=== PATIENT | male | born 1945 | race Caucasian/White ===

== ENCOUNTER 2019-02-08 15:31 | Inpatient (IN) ==
[2019-02-08] MEDS: SODIUM CHLORIDE 0.9% 1000ML 1,000 ML IV SCH ×2 (16:23→20:01)
[2019-02-08 16:26] LABS: Basophils # (auto) 0.02 K/uL (0-0.2); Basophils % (auto) 0.2 %; Eosinophils % (auto) 1.1 %; Hematocrit (blood only) 37.3 % (42-52); Hemoglobin 12.9 g/dL (14.0-18.0); Immature Granulocytes # (auto) 0.01 K/uL (0.00-0.02); Immature Granulocytes % (auto) 0.1 %; Lymphocytes % (auto) 23.3 %; Mean Corpuscular Hemoglobin 30.9 pg (25-34); Mean Corpuscular Hgb Conc 34.6 g/dL (32-36); Mean Corpuscular Volume 89.2 fL (80-100); Mean Platelet Volume 9.9 fL (7.4-10.4); Monocytes % (auto) 5.3 %; Neutrophils # (auto) 6.61 K/uL (1.4-6.5); Platelet Count 209 K/uL (130-400); RDW Standard Deviation 42.3 fL (36.4-46.3); Red Blood Count 4.18 M/uL (4.7-6.1); White Blood Count 9.44 K/uL (4.8-10.8)
[2019-02-08 16:41] LABS: INR 1.1 (0.9-1.1); Partial Thromboplastin Ratio 1.1; Partial Thromboplastin Time 28.6 Seconds (21.0-31.0)
--- NOTE | 2019-02-08 16:41 | XRay Report ---
XR chest 1V portable HISTORY: 73 years-old Male gi bleed acute GI bleed COMPARISON: Chest radiograph 01/03/2014 TECHNIQUE: Portable AP view of the chest FINDINGS: Cardiac silhouette is upper limits of normal in size. There is no pneumothorax, pleural effusion, foc al airspace consolidation or overt pulmonary edema. Degenerative changes of the shoulders and spine. Mild left hemidiaphragmatic elevation. IMPRESSION: No acute process. The above report was generated using voice recognition software. It may contain grammatical, syntax o r spelling errors. Electronically signed by: Caden Haynes M.D. 02/08/2019 4:40 PM
[2019-02-08 16:53] LABS: Albumin Level 2.7 gm/dl (3.4-5.0); BUN Creatinine Ratio 21.3 (10-20); Bilirubin,Total 0.4 mg/dl (0.2-1); Calcium 8.9 mg/dl (8.5-10.1); Creatinine Clr Calc Pharmacy 40.7 ml/min; Est GFR (African American) 52.4; Est GFR (Non-African American) 45.2; Globulin 2.7 gm/dl (2.5-4.0); Potassium 4.1 mmol/L (3.5-5.1); Total Protein 5.4 gm/dl (6.4-8.2)
[2019-02-08] MEDS ORDERED: SODIUM CHLORIDE 0.9% 1000ML 1,000 ML IV ONE (16:59)
[2019-02-08] MEDS ORDERED: SODIUM CHLORIDE 0.9% 250 ML IV PRN (17:02)
--- NOTE | 2019-02-08 17:59 | History & Physical Report ---
Date of Service February 08, 2019 Assessment & Plan (1) Rectal bleed: This is a 73-year-old male with a PMH of DM II, HTN and HLD who presents with rectal bleed starting early this afternoon. -Endorses 5 episodes of bright red blood with presence of clots and some dark blood -No history of GI bleeds. Daily baby aspirin use -Has been intermittently hypotensive during vasovagal episodes but improved to 106/49. Now 88/56. Continue IV fluid bolus, [address] IV[address] in place -Hgb stable at 12.9. Trend H&H. Type & crossed and consented with 2u PRBCs held -Clear liquids for now, NPO at midnight. Routine GI consult -Considered abdominal imaging but do not want to give IV contrast in setting of ASHLEE. No abdominal pain on exam -Afebrile, no leukocyosis so no abx given for now -Monitor labwork, vitals closely (2) Vasovagal syncope: Has had 2 episodes in reaction to sight of blood -No reflexive tachycardia- HR has remained in normal range -Continue IV fluids, monitor on telemetry (3) Acute kidney injury: Cr elevated at 1.51 (baseline Cr ~1.1). BUN/Cr ratio of 21 in setting of GI bleed -Receiving IV fluids -Hold lisinopril (4) Diabetes mellitus type II, uncontrolled: Last a1c of 11.9 in Nov 2017. Repeat pending -Takes insulin around 2694-6936 after returning from work -BSG of 368 initially. Glycemic consult placed for further management, diabetic education (5) HTN (hypertension): Intermittently hypotensive -Holding lisinopril in setting of ASHLEE (6) BPH (benign prostatic hypertrophy) with urinary retention: History of urinary retention -Bladder scan qshift PRN (7) HLD (hyperlipidemia): Continue statin DVT Ppx: SCDs in setting of rectal bleed Code status: FULL PCP: Robin Dispo: Admitted to PCU. Plan to return home once medically stable. Patient seen in collaboration with Dr. Alcaraz. Please see addendum. History of Present Illness Chief Complaint: Rectal bleeding Primary Care Provider: Moo Kelly MD This is a 73-year-old male with a PMH of DM II, HTN and HLD who presents with rectal bleed starting early this afternoon. Patient states he had some abdominal cramping prior to first episode of bright red blood per rectum mixed with loose stool. Had 4 subsequent episodes that were bright red but also with presence of blood clots and some dark red as well. Menno lightheaded and nauseous after viewing the toilet bowl and had a syncopal episode. Was brought into ED for further evaluation. Afebrile and hemodynamically stable with BP of 111/86. Patient became queasy again with the placement of peripheral IV and had hypotensive episode with syncope. Is receiving IV fluid bolus now with improvement of BP to 106/49. Heart rate of 73. Hemoglobin is stable at 12.9. No leukocytosis. Creatinine elevated at 1.51 (baseline ~1.1). Blood sugar elevated at 368. 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 Took 18 units of Lantus around 0100 last night. Denies any decreased appetite today. Currently, no lightheadedness, visual changes, chest pain, shortness of breath, nausea, vomiting, abdominal pain or dysuria. Denies history of GI bleeds. No history of hemorrhoids. Takes a baby aspirin daily but denies any ibuprofen use. Remote history of colonoscopy and does not remember results. Allergies Allergy/AdvReac Type Severity Reaction Status Date / Time No Known Allergies Allergy Unverified 02/08/19 17:09 Home Medications Home Medications Medication Instructions Recorded Confirmed Type aspirin [Aspir-81] 81 mg PO DAILY 02/08/19 02/08/19 History atorvastatin [Lipitor] 40 mg PO DAILY 02/08/19 02/08/19 History docusate sodium 100 mg PO DAILY 02/08/19 02/08/19 History insulin aspart U-100 [Novolog 10 unit SUBCUT TIDM 02/08/19 02/08/19 History Flexpen U-100 Insulin] insulin glargine [Lantus Solostar 10 unit SUBCUT QPM 02/08/19 02/08/19 History U-100 Insulin] lisinopril 20 mg PO DAILY 02/08/19 02/08/19 History multivitamin 1 tab PO DAILY 02/08/19 02/08/19 History Past Med/Surg History Medical History Acute kidney injury (Inactive 12/01/13) BPH (benign prostatic hypertrophy) with urinary retention (Chronic) "Present occultly for a while" Diabetes mellitus type II, uncontrolled (Chronic) Hernia HLD (hyperlipidemia) (Chronic) HTN (hypertension) (Chronic) Surgical History History of ankle surgery Family History Other Diabetes Social History Communication Ability: Effective Beliefs That Will Affect Care: None Current Living Situation: Spouse current occupational status: employed 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 Physical Exam Physical Exam: General Appearance: WD/WN, vitals as above, NAD, lying in bed, conversing easily, + pale Head: normocephalic, atraumatic Eyes: normal inspection, PERRL, conjunctivae normal, anicteric sclerae ENT: external ear and nose normal, oropharynx normal Neck: trachea midline, no thyromegaly normal visual inspection Respiratory: normal respiratory effort, lungs clear to auscultation, no wheeze, rales, rhonchi. Normal insp/exp effort, no accessory muscle use Cardiovascular: regular rate, rhythm, no murmur, normal peripheral pulses. Vessels: no JVD or carotid bruit Chest: normal inspection of chest Abdomen/GI: normal bowel sounds, soft, nontender, no hepatosplenomegaly Extremities/Musculoskelatal: no cyanosis or clubbing, extremities motor strength 5/5 Neurologic: PERRL, EOMI, accommodation nl, no face palsy, no dysarthria CN's II-XI intact bilaterally and moves all extremities Psychiatric: A+Ox3, euthymic affect Skin: no rashes, pale, warm/dry Results & Data Vital Signs (Past 12 Hours) Vital Signs Temp Pulse Resp BP Pulse Ox 02/08/19 17:30 75 26 H 106/49 L 99 02/08/19 17:00 61 21 97/75 L 97 02/08/19 16:56 64 22 82/46 L 97 02/08/19 16:21 97 02/08/19 15:28 36.8 C 96 H 18 111/86 97 Laboratory Results Short CBC 02/08/19 02/08/19 02/08/19 Range/Units 16:11 16:11 16:11 WBC 9.44 (4.8-10.8) K/uL RBC 4.18 L (4.7-6.1) M/uL Hgb 12.9 L (14.0-18.0) g/dL Hct 37.3 L (42-52) % MCV 89.2 (80-100) fL MCH 30.9 (25-34) pg MCHC 34.6 (32-36) g/dL RDW Std Deviation 42.3 (36.4-46.3) fL RDW Coeff of Radha 13.0 (11.5-14.5) % Plt Count 209 (130-400) K/uL MPV 9.9 (7.4-10.4) fL Immature Gran % (Auto) 0.1 % Neut % (Auto) 70.0 % Lymph % (Auto) 23.3 % [place] % (Auto) 5.3 % Eos % (Auto) 1.1 % Baso % (Auto) 0.2 % Immature Gran # (Auto) 0.01 (0.00-0.02) K/uL Neut # (Auto) 6.61 H (1.4-6.5) K/uL Lymph # (Auto) 2.20 (1.2-3.4) K/uL [place] # (Auto) 0.50 (0.11-0.59) K/uL Eos # (Auto) 0.10 (0-0.5) K/uL Baso # (Auto) 0.02 (0-0.2) K/uL PT 11.0 (9.0-12.0) Seconds INR 1.1 (0.9-1.1) APTT 28.6 (21.0-31.0) Seconds PTT Ratio 1.1 Sodium 136 (136-145) mmol/L Potassium 4.1 (3.5-5.1) mmol/L Chloride 107 (98-107) mmol/L Carbon Dioxide 21 (21-32) mmol/L Anion Gap 8.0 (3-11) BUN 32 H (7-18) mg/dl Creatinine 1.51 H (0.6-1.4) mg/dl Est Cr Clr Drug Dosing 40.7 ml/min Est GFR ( Amer) 52.4 Est GFR (Non-Af Amer) 45.2 BUN/Creatinine Ratio 21.3 H (10-20) Glucose 368 H* (70-99) mg/dl Calcium 8.9 (8.5-10.1) mg/dl Total Bilirubin 0.4 (0.2-1) mg/dl AST 11 L (15-37) U/L ALT 28 (12-78) U/L Alkaline Phosphatase 99 (45-117) U/L Total Protein 5.4 L (6.4-8.2) gm/dl Albumin 2.7 L (3.4-5.0) gm/dl Globulin 2.7 (2.5-4.0) gm/dl Albumin/Globulin Ratio 1.0 (0.9-2) Crossmatch 02/08/19 Range/Units 16:11 WBC (4.8-10.8) K/uL RBC (4.7-6.1) M/uL Hgb (14.0-18.0) g/dL Hct (42-52) % MCV (80-100) fL MCH (25-34) pg MCHC (32-36) g/dL RDW Std Deviation (36.4-46.3) fL RDW Coeff of Radha (11.5-14.5) % Plt Count (130-400) K/uL MPV (7.4-10.4) fL Immature Gran % (Auto) % Neut % (Auto) % Lymph % (Auto) % [place] % (Auto) % Eos % (Auto) % Baso % (Auto) % Immature Gran # (Auto) (0.00-0.02) K/uL Neut # (Auto) (1.4-6.5) K/uL Lymph # (Auto) (1.2-3.4) K/uL [place] # (Auto) (0.11-0.59) K/uL Eos # (Auto) (0-0.5) K/uL Baso # (Auto) (0-0.2) K/uL PT (9.0-12.0) Seconds INR (0.9-1.1) APTT (21.0-31.0) Seconds PTT Ratio Sodium (136-145) mmol/L Potassium (3.5-5.1) mmol/L Chloride (98-107) mmol/L Carbon Dioxide (21-32) mmol/L Anion Gap (3-11) BUN (7-18) mg/dl Creatinine (0.6-1.4) mg/dl Est Cr Clr Drug Dosing ml/min Est GFR ( Amer) Est GFR (Non-Af Amer) BUN/Creatinine Ratio (10-20) Glucose (70-99) mg/dl Calcium (8.5-10.1) mg/dl Total Bilirubin (0.2-1) mg/dl AST (15-37) U/L ALT (12-78) U/L Alkaline Phosphatase (45-117) U/L Total Protein (6.4-8.2) gm/dl Albumin (3.4-5.0) gm/dl Globulin (2.5-4.0) gm/dl Albumin/Globulin Ratio (0.9-2) Crossmatch See Detail BMP 02/08/19 16:11 Sodium 136 Potassium 4.1 Chloride 107 Carbon Dioxide 21 BUN 32 H Creatinine 1.51 H Glucose 368 H* Calcium 8.9 Liver Function 02/08/19 Range/Units 16:11 Total Bilirubin 0.4 (0.2-1) mg/dl AST 11 L (15-37) U/L ALT 28 (12-78) U/L Alkaline Phosphatase 99 (45-117) U/L Albumin 2.7 L (3.4-5.0) gm/dl Diagnostic Findings CXR: IMPRESSION: No acute process. Supervising Physician Co-Signing Physician Notes I have seen and examined the patient and have discussed the case with the provider above. I agree with the assessment and plan as stated with the following exceptions. 73 yo M with acute GI bleed. Blood is reported as dark red and frequent with 7 BMs beginning this afternoon. Asymptomatic prior to this. Some initial abdominal cramping was present momentarily and was resolved with a BM. Blood had clots in it, and although there was some bright red blood, states that actually bloody stool was very dark. Abdominal exam a nontender, nondistended abdomen with a small reducible hernia in the left groin. He reports no nausea, vomiting or hematemesis. He has no h/o steroids, heavy alcohol or excessive NSAIDs but does take a daily baby aspirin. He has no h/o a GI bleed. There is no colonoscopy on file, but he states he has had one in the past. Although most signs are pointing to a lower GI source, he is exhibiting some hemodynamic instability with orthostasis, BUN is elevated, and there is concern for an UGIB source. He is receiving fluid resuscitation for his BP instability. Blood consent has been performed, he is typed and crossed and Protonix drip is infusing. H/H ordered for 2100, and will continue to monitor progress overnight and continue resuscitation efforts. Syncope that was reported may be a combination of orthostatic compromise 2/2 hypovolemia and vasovagal syncope as he is known to get lightheaded around needles and blood. DO Kieran
[2019-02-08 18:01] LABS: Beta-Hydroxybutyrate 1.95 mg/dl (0.2-2.81)
[2019-02-08] MEDS ORDERED: PHARMACY GLYCEMIC MGMT CONSULT STA (18:34)
[2019-02-08] MEDS ORDERED: CONSULT PHARMACY STA (18:46)
[2019-02-08] MEDS ORDERED: PANTOprazole 80 MG in DEXTROSE 5% 100 ML IV SCH (19:00)
[2019-02-08] MEDS ORDERED: NovoLIN-R INSULIN PER UNIT CHARGE IV STA (19:12)
[2019-02-08] MEDS ORDERED: GLUCAGON FOR INJ 1 MG VIAL SQ PRN (19:51)
[2019-02-08] MEDS ORDERED: DEXTROSE 50% 50 ML SYRINGE IV PRN (19:51)
[2019-02-08] MEDS ORDERED: CARBOHYDRATES FOR HYPOGLYCEMIA PO PRN (19:51)
[2019-02-08] MEDS ORDERED: GLUCOSE 10 TABS/TUBE PO PRN (19:51)
[2019-02-08] MEDS ORDERED: GLUCOSE 40% GEL 15 GM TUBE PO PRN (19:51)
[2019-02-08] MEDS ORDERED: ACETAMINOPHEN 325 MG TAB PO PRN (19:51)
[2019-02-08] MEDS ORDERED: ONDANSETRON INJ 2 MG/ML 2 ML VIAL IV PRN (19:51)
[2019-02-08] MEDS ORDERED: PHARMACY GLYCEMIC MGMT CONSULT PRN (19:54)
[2019-02-08] MEDS: PANTOprazole 40 MG in DEXTROSE 5% 100 ML IV SCH (20:01)
[2019-02-08] MEDS ORDERED: SODIUM CHLORIDE 0.9% 1000ML 1,000 ML IV SCH (20:32)
[2019-02-08] MEDS ORDERED: INSULIN GLARGINE SOLOSTAR 100 UNITS/ML 3 ML PEN SC SCH ×4 (21:00)
[2019-02-08] MEDS ORDERED: INSULIN REGULAR 250 UNITS in SODIUM CHLORIDE 0.9% 247.5 ML IV SCH (21:00)
[2019-02-08] MEDS ORDERED: INSULIN ASPART 100 UNITS/ML 3 ML PEN SC SCH (21:00)
[2019-02-08] MEDS ORDERED: INSULIN HUMAN REGULAR PER UNIT 5 UNITS in SYRINGE 4.95 ML IV STA (21:01)
[2019-02-08 21:18] LABS: Hematocrit (blood only) 31.5 % (42-52); Hemoglobin 10.7 g/dL (14.0-18.0)
[2019-02-08] MEDS: LACTATED RINGER'S 1,000 ML IV SCH (21:35)
[2019-02-08] MEDS: INSULIN ASPART 100 UNITS/ML 3 ML PEN SC SCH (21:38)
[2019-02-09] MEDS ORDERED: INSULIN ASPART 100 UNITS/ML 3 ML PEN SC SCH
[2019-02-09] MEDS: PANTOprazole 40 MG in DEXTROSE 5% 100 ML IV SCH ×2 (00:48→04:55)
[2019-02-09 01:13] LABS: Hemoglobin 9.7 g/dL (14.0-18.0)
[2019-02-09] MEDS: LACTATED RINGER'S 1,000 ML IV SCH (04:55)
[2019-02-09] MEDS ORDERED: LORazepam 0.5 MG TAB PO STA ×2 (05:26→05:38)
[2019-02-09 07:16] LABS: Basophils # (auto) 0.01 K/uL (0-0.2); Basophils % (auto) 0.1 %; Eosinophils # (auto) 0.07 K/uL (0-0.5); Eosinophils % (auto) 0.9 %; Hematocrit (blood only) 27.1 % (42-52); Hemoglobin 9.3 g/dL (14.0-18.0); Immature Granulocytes # (auto) 0.02 K/uL (0.00-0.02); Immature Granulocytes % (auto) 0.2 %; Lymphocytes # (auto) 1.35 K/uL (1.2-3.4); Lymphocytes % (auto) 16.7 %; Mean Corpuscular Hemoglobin 30.7 pg (25-34); Mean Corpuscular Hgb Conc 34.3 g/dL (32-36); Mean Corpuscular Volume 89.4 fL (80-100); Mean Platelet Volume 9.7 fL (7.4-10.4); Monocytes # (auto) 0.53 K/uL (0.11-0.59); Monocytes % (auto) 6.6 %; Neutrophils # (auto) 6.09 K/uL (1.4-6.5); Neutrophils % (auto) 75.5 %; Platelet Count 168 K/uL (130-400); RDW Coefficient of Variation 13.3 % (11.5-14.5); RDW Standard Deviation 43.3 fL (36.4-46.3); Red Blood Count 3.03 M/uL (4.7-6.1); White Blood Count 8.07 K/uL (4.8-10.8)
[2019-02-09 07:22] LABS: Estimated Average Glucose 289 mg/dl; Hemoglobin A1C 11.7 % (4.5-5.6)
[2019-02-09 07:33] LABS: BUN Creatinine Ratio 26.5 (10-20); Est GFR (African American) 78.5; Est GFR (Non-African American) 67.7; Magnesium 1.9 mg/dl (1.8-2.4); Potassium 3.6 mmol/L (3.5-5.1)
[2019-02-09 07:43] LABS: Thyroid Stimulating Hormone 0.556 uIu/ml (0.300-4.500)
[2019-02-09] MEDS: ATORVASTATIN 40 MG TAB PO SCH (08:20)
[2019-02-09] MEDS: MULTIVITAMIN TAB PO SCH (08:20)
[2019-02-09] MEDS: INSULIN GLARGINE SOLOSTAR 100 UNITS/ML 3 ML PEN SC SCH (08:21)
--- NOTE | 2019-02-09 08:32 | Pharmacy Report ---
Glycemic Control Consultation - Date of Service February 09, 2019 - Scope Scope: Glycemic Pharmacist consulted by Diana Washington PA-c on 02/08/19 for glycemic control and to write orders per [facility] inpatient glycemic control protocol - Objective Weight: 75.5 kg Accuchecks BSG (last 24hrs): 02/08/19 02/08/19 02/08/19 16:11 19:23 20:23 Glucose 368 H* POC Glucose 362 H* 379 H* 02/08/19 02/08/19 02/09/19 22:33 23:36 00:30 Glucose POC Glucose 327 H* 286 H 238 H 02/09/19 02/09/19 02/09/19 01:31 02:36 04:02 Glucose POC Glucose 219 H 130 H 119 H 02/09/19 02/09/19 02/09/19 05:04 05:45 06:52 Glucose 109 H POC Glucose 94 98 02/09/19 07:25 Glucose POC Glucose 116 H Laboratory Data (last 24hrs): 02/08/19 02/09/19 16:11 06:52 Potassium 4.1 3.6 Carbon Dioxide 21 22 Anion Gap 8.0 5.0 Creatinine 1.51 H 1.08 Est Cr Clr Drug Dosing 40.7 57.0 Beta-Hydroxybutyric Acd 1.95 HbA1c: Hemoglobin A1c 11.7 % (4.5-5.6) H 02/09/19 06:52 - Recent Pertinent Medications Outpatient Anti-diabetic Regimen: * Lantus 18 units SQ daily at 5am * Novolog 10 units TID with meals, sometime takes 20 units if eating larger meal * A1c = 11.7 % 02/08/19 The patient is currently receiving: * Basal insulin: Lantus 10 units x 1 dose last night * Insulin drip started last night at 4 units/hr, up as high as 5.8 units/hr, and shut off at 0500 this morning per drip calculator, BSG 98mg/dl Risk Factors for Insulin Resistance: * IVF: Protonix drip mixed in dextrose * Diet: Clears - Assessment & Plan Assessment & Plan: ASSESSMENT: * 73-year-old male with a PMH of DM II, HTN and HLD, admitted with rectal bleeding yesterday, pharmacy consulted last night. * Patient with blood sugars in 300s, give 10 units IV Regular insulin, blood sugars remained in 300s, so patient started on IV insulin drip with starting rate of 4units/hr and another bolus of 5 units IV. * Blood sugars trended down nicely by 5am drip was turned off. * Met with patient, he is very afraid of blood so does not SMBG at home. 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 * Patient takes Novolog with meals, and takes 20 units if having a larger meal. * Blood sugars uncontrolled based on A1c 11.7%. * ADA & AACE recommend a goal blood sugar range 140-180 mg/dl for the majority of critically ill & non-critically ill patients. However, more stringent targets may be selected in individual cases. Will utilize more stringent goal of 110-140mg/dl based on patient age & comorbidities. Additionally, tighter glycemic control is warranted to facilitate wound/infection healing. * Pt to see GI today. PLAN FOR INPATIENT GLYCEMIC CONTROL: * Discontinue IV insulin infusion * Basal insulin * Lantus 10 units SQ AM this morning, will likely increase to home dose of 18 units daily tomorrow morning * Bolus insulin * NovoLog per scale ACHS or Q6hrs while NPO * Goal Range: Low 110 mg/dL - High 140 mg/dL * Correction Factor: 20 mg/dL/unit * Nutritional / Prandial insulin per carb ratio of 1 unit per 7 grams CHO consumed * Please note that the plan above was derived based on current level of insulin resistance and hospital stress. These recommendations are appropriate for inpatient admission only. Plan of care upon discharge will need to be reassessed to avoid potential outpatient hypo/hyperglycemia. Thank you.
[2019-02-09] MEDS: INSULIN ASPART 100 UNITS/ML 3 ML PEN SC SCH ×4 (09:36→20:57)
--- NOTE | 2019-02-09 09:46 | Hospitalist Progress Note ---
Date of Service February 09, 2019 Assessment & Plan (1) Rectal bleed: This is a 73-year-old male with a PMH of DM II, HTN and HLD who presents with rectal bleed -Endorsed 5 episodes of bright red blood with presence of clots and some dark blood prior to admission -No prior history of GI bleeds. Daily baby aspirin use -Has been intermittently hypotensive during vasovagal episodes but improved -Hgb stable at 12.9 on admission. Type & crossed and consented with 2u PRBCs held - Now Hgb trending down, likely partially secondary to dilution from IVF, and acute blood loss -Considered abdominal imaging but do not want to give IV contrast in setting of ASHLEE. No abdominal pain on exam -Afebrile, no leukocyosis so no abx given for now -Clear liquids diet, IVF -GI consulted -believe diverticular bleed versus ischemic colitis, stool culture and C. difficile, change PPI related to Protonix 40 mg p.o. twice daily recommend colonoscopy in 4 to 6 weeks time -Ordered mesenteric Doppler to rule out ischemia, see results above -Patient had additional bleed, after his ultrasound study, GI recommends that if patient continues to bleed, tagged RBC scan, GoLYTELY prep and n.p.o. after midnight for possible colonoscopy tomorrow -Monitor labwork, vitals closely (2) Vasovagal syncope: Has had 2 episodes in reaction to sight of blood -No reflexive tachycardia- HR has remained in normal range -received IV fluids, monitor on telemetry (3) Acute kidney injury: Cr elevated at 1.51 (baseline Cr ~1.1). BUN/Cr ratio of 21 in setting of GI bleed -Received IV fluids -Hold lisinopril (4) Diabetes mellitus type II, uncontrolled: Last a1c of 11.9 in Nov 2017. A1c 11.7% (02/09/2019) -Takes insulin around [id number] after returning from work -BSG of 368 initially -Glycemic consult placed for further management, diabetic education (5) HTN (hypertension): Intermittently hypotensive -Holding lisinopril in setting of ASHLEE (6) BPH (benign prostatic hypertrophy) with urinary retention: History of urinary retention -Bladder scan qshift PRN (7) HLD (hyperlipidemia): Continue statin DVT Ppx: SCDs in setting of rectal bleed Code status: FULL PCP: Robin Dispo: Admitted to PCU. Plan to return home once medically stable. Subjective Patient is lying in bed, in no acute distress. His and 2 daughters present at the bedside. Patient denies any fevers, chills, chest pain, shortness of breath, nausea or vomiting. Patient says he had several bloody bowel movements at home but none in the hospital. Update: Patient had a small bloody bowel movement after his ultrasound exam Discussed with GI,That if patient continues to bleed give GoLYTELY prep and keep n.p.o. for colonoscopy tomorrow, possibly get tagged RBC scan Review of Systems Review of Systems: All systems reviewed & are unremarkable except as noted in HPI & below Constitutional: no fever and no chills Respiratory: no cough and no dyspnea Cardiovascular: no chest pain, no palpitations and no edema Gastrointestinal: + blood in stools; no nausea and no vomiting Physical Exam Physical Exam: General Appearance: Elderly male lying in bed, conversing easily, + pale Head: normocephalic, atraumatic Eyes: normal inspection, PERRL, EOMI, conjunctivae normal, anicteric sclerae ENT: external ear and nose normal, oropharynx normal Neck: trachea midline, no thyromegaly normal visual inspection Respiratory: normal respiratory effort, lungs clear to auscultation, no wheeze, rales, rhonchi. Normal insp/exp effort, no accessory muscle use Cardiovascular: regular rate, rhythm, no murmur, normal peripheral pulses. Vessels: no JVD or carotid bruit Chest: normal inspection of chest Abdomen/GI: normal bowel sounds, soft, nontender, no hepatosplenomegaly Extremities/MSK: no cyanosis or clubbing, extremities motor strength 5/5 Neurologic: PERRL, EOMI, accommodation nl, no face palsy, no dysarthria CN's II-XI intact bilaterally and moves all extremities Psychiatric: A+Ox3, euthymic affect Skin: no rashes, pale, warm/dry Results & Data Vital Signs (Past 12 Hours) Vital Signs Temp Pulse Resp BP Pulse Ox 02/09/19 07:51 36.9 C 86 18 101/63 96 02/09/19 03:18 37.1 C 84 18 100/59 L 96 02/08/19 23:40 37 C 92 H 20 98/52 L 97 Laboratory Results 02/09/19 02/09/19 02/09/19 Range/Units 07:25 06:52 06:52 WBC (4.8-10.8) K/uL RBC (4.7-6.1) M/uL Hgb (14.0-18.0) g/dL Hct (42-52) % MCV (80-100) fL MCH (25-34) pg MCHC (32-36) g/dL RDW Std Deviation (36.4-46.3) fL RDW Coeff of Radha (11.5-14.5) % Plt Count (130-400) K/uL MPV (7.4-10.4) fL Immature Gran % (Auto) % Neut % (Auto) % Lymph % (Auto) % [place] % (Auto) % Eos % (Auto) % Baso % (Auto) % Immature Gran # (Auto) (0.00-0.02) K/uL Neut # (Auto) (1.4-6.5) K/uL Lymph # (Auto) (1.2-3.4) K/uL [place] # (Auto) (0.11-0.59) K/uL Eos # (Auto) (0-0.5) K/uL Baso # (Auto) (0-0.2) K/uL PT (9.0-12.0) Seconds INR (0.9-1.1) APTT (21.0-31.0) Seconds PTT Ratio Sodium 141 (136-145) mmol/L Potassium 3.6 (3.5-5.1) mmol/L Chloride 114 H (98-107) mmol/L Carbon Dioxide 22 (21-32) mmol/L Anion Gap 5.0 (3-11) BUN 29 H (7-18) mg/dl Creatinine 1.08 (0.6-1.4) mg/dl Est Cr Clr Drug Dosing 57.0 ml/min Est GFR ( Amer) 78.5 Est GFR (Non-Af Amer) 67.7 BUN/Creatinine Ratio 26.5 H (10-20) Glucose 109 H (70-99) mg/dl POC Glucose 116 H (70-99) Estimat Average Glucose 289 mg/dl Hemoglobin A1c 11.7 H (4.5-5.6) % Calcium 8.0 L (8.5-10.1) mg/dl Magnesium 1.9 (1.8-2.4) mg/dl Total Bilirubin (0.2-1) mg/dl AST (15-37) U/L ALT (12-78) U/L Alkaline Phosphatase (45-117) U/L Total Protein (6.4-8.2) gm/dl Albumin (3.4-5.0) gm/dl Globulin (2.5-4.0) gm/dl Albumin/Globulin Ratio (0.9-2) Beta-Hydroxybutyric Acd (0.2-2.81) mg/dl TSH 0.556 (0.300-4.500) uIu/ml Blood Type Blood Type Recheck Antibody Screen Crossmatch 02/09/19 02/09/19 02/09/19 Range/Units 06:52 05:45 05:04 WBC 8.07 (4.8-10.8) K/uL RBC 3.03 L (4.7-6.1) M/uL Hgb 9.3 L (14.0-18.0) g/dL Hct 27.1 L (42-52) % MCV 89.4 (80-100) fL MCH 30.7 (25-34) pg MCHC 34.3 (32-36) g/dL RDW Std Deviation 43.3 (36.4-46.3) fL RDW Coeff of Radha 13.3 (11.5-14.5) % Plt Count 168 (130-400) K/uL MPV 9.7 (7.4-10.4) fL Immature Gran % (Auto) 0.2 % Neut % (Auto) 75.5 % Lymph % (Auto) 16.7 % [place] % (Auto) 6.6 % Eos % (Auto) 0.9 % Baso % (Auto) 0.1 % Immature Gran # (Auto) 0.02 (0.00-0.02) K/uL Neut # (Auto) 6.09 (1.4-6.5) K/uL Lymph # (Auto) 1.35 (1.2-3.4) K/uL [place] # (Auto) 0.53 (0.11-0.59) K/uL Eos # (Auto) 0.07 (0-0.5) K/uL Baso # (Auto) 0.01 (0-0.2) K/uL PT (9.0-12.0) Seconds INR (0.9-1.1) APTT (21.0-31.0) Seconds PTT Ratio Sodium (136-145) mmol/L Potassium (3.5-5.1) mmol/L Chloride (98-107) mmol/L Carbon Dioxide (21-32) mmol/L Anion Gap (3-11) BUN (7-18) mg/dl Creatinine (0.6-1.4) mg/dl Est Cr Clr Drug Dosing ml/min Est GFR ( Amer) Est GFR (Non-Af Amer) BUN/Creatinine Ratio (10-20) Glucose (70-99) mg/dl POC Glucose 98 94 (70-99) Estimat Average Glucose mg/dl Hemoglobin A1c (4.5-5.6) % Calcium (8.5-10.1) mg/dl Magnesium (1.8-2.4) mg/dl Total Bilirubin (0.2-1) mg/dl AST (15-37) U/L ALT (12-78) U/L Alkaline Phosphatase (45-117) U/L Total Protein (6.4-8.2) gm/dl Albumin (3.4-5.0) gm/dl Globulin (2.5-4.0) gm/dl Albumin/Globulin Ratio (0.9-2) Beta-Hydroxybutyric Acd (0.2-2.81) mg/dl TSH (0.300-4.500) uIu/ml Blood Type Blood Type Recheck Antibody Screen Crossmatch 02/09/19 02/09/19 02/09/19 Range/Units 04:02 02:36 01:31 WBC (4.8-10.8) K/uL RBC (4.7-6.1) M/uL Hgb (14.0-18.0) g/dL Hct (42-52) % MCV (80-100) fL MCH (25-34) pg MCHC (32-36) g/dL RDW Std Deviation (36.4-46.3) fL RDW Coeff of Radha (11.5-14.5) % Plt Count (130-400) K/uL MPV (7.4-10.4) fL Immature Gran % (Auto) % Neut % (Auto) % Lymph % (Auto) % [place] % (Auto) % Eos % (Auto) % Baso % (Auto) % Immature Gran # (Auto) (0.00-0.02) K/uL Neut # (Auto) (1.4-6.5) K/uL Lymph # (Auto) (1.2-3.4) K/uL [place] # (Auto) (0.11-0.59) K/uL Eos # (Auto) (0-0.5) K/uL Baso # (Auto) (0-0.2) K/uL PT (9.0-12.0) Seconds INR (0.9-1.1) APTT (21.0-31.0) Seconds PTT Ratio Sodium (136-145) mmol/L Potassium (3.5-5.1) mmol/L Chloride (98-107) mmol/L Carbon Dioxide (21-32) mmol/L Anion Gap (3-11) BUN (7-18) mg/dl Creatinine (0.6-1.4) mg/dl Est Cr Clr Drug Dosing ml/min Est GFR ( Amer) Est GFR (Non-Af Amer) BUN/Creatinine Ratio (10-20) Glucose (70-99) mg/dl POC Glucose 119 H 130 H 219 H (70-99) Estimat Average Glucose mg/dl Hemoglobin A1c (4.5-5.6) % Calcium (8.5-10.1) mg/dl Magnesium (1.8-2.4) mg/dl Total Bilirubin (0.2-1) mg/dl AST (15-37) U/L ALT (12-78) U/L Alkaline Phosphatase (45-117) U/L Total Protein (6.4-8.2) gm/dl Albumin (3.4-5.0) gm/dl Globulin (2.5-4.0) gm/dl Albumin/Globulin Ratio (0.9-2) Beta-Hydroxybutyric Acd (0.2-2.81) mg/dl TSH (0.300-4.500) uIu/ml Blood Type Blood Type Recheck Antibody Screen Crossmatch 02/09/19 02/09/19 02/09/19 Range/Units 00:57 00:57 00:30 WBC (4.8-10.8) K/uL RBC (4.7-6.1) M/uL Hgb 9.7 L (14.0-18.0) g/dL Hct 28.0 L (42-52) % MCV (80-100) fL MCH (25-34) pg MCHC (32-36) g/dL RDW Std Deviation (36.4-46.3) fL RDW Coeff of Radha (11.5-14.5) % Plt Count (130-400) K/uL MPV (7.4-10.4) fL Immature Gran % (Auto) % Neut % (Auto) % Lymph % (Auto) % [place] % (Auto) % Eos % (Auto) % Baso % (Auto) % Immature Gran # (Auto) (0.00-0.02) K/uL Neut # (Auto) (1.4-6.5) K/uL Lymph # (Auto) (1.2-3.4) K/uL [place] # (Auto) (0.11-0.59) K/uL Eos # (Auto) (0-0.5) K/uL Baso # (Auto) (0-0.2) K/uL PT (9.0-12.0) Seconds INR (0.9-1.1) APTT (21.0-31.0) Seconds PTT Ratio Sodium (136-145) mmol/L Potassium (3.5-5.1) mmol/L Chloride (98-107) mmol/L Carbon Dioxide (21-32) mmol/L Anion Gap (3-11) BUN (7-18) mg/dl Creatinine (0.6-1.4) mg/dl Est Cr Clr Drug Dosing ml/min Est GFR ( Amer) Est GFR (Non-Af Amer) BUN/Creatinine Ratio (10-20) Glucose (70-99) mg/dl POC Glucose 238 H (70-99) Estimat Average Glucose mg/dl Hemoglobin A1c (4.5-5.6) % Calcium (8.5-10.1) mg/dl Magnesium (1.8-2.4) mg/dl Total Bilirubin (0.2-1) mg/dl AST (15-37) U/L ALT (12-78) U/L Alkaline Phosphatase (45-117) U/L Total Protein (6.4-8.2) gm/dl Albumin (3.4-5.0) gm/dl Globulin (2.5-4.0) gm/dl Albumin/Globulin Ratio (0.9-2) Beta-Hydroxybutyric Acd (0.2-2.81) mg/dl TSH (0.300-4.500) uIu/ml Blood Type Blood Type Recheck O Positive Antibody Screen Crossmatch 02/08/19 02/08/19 02/08/19 Range/Units 23:36 22:33 20:59 WBC (4.8-10.8) K/uL RBC (4.7-6.1) M/uL Hgb 10.7 L (14.0-18.0) g/dL Hct 31.5 L (42-52) % MCV (80-100) fL MCH (25-34) pg MCHC (32-36) g/dL RDW Std Deviation (36.4-46.3) fL RDW Coeff of Radha (11.5-14.5) % Plt Count (130-400) K/uL MPV (7.4-10.4) fL Immature Gran % (Auto) % Neut % (Auto) % Lymph % (Auto) % [place] % (Auto) % Eos % (Auto) % Baso % (Auto) % Immature Gran # (Auto) (0.00-0.02) K/uL Neut # (Auto) (1.4-6.5) K/uL Lymph # (Auto) (1.2-3.4) K/uL [place] # (Auto) (0.11-0.59) K/uL Eos # (Auto) (0-0.5) K/uL Baso # (Auto) (0-0.2) K/uL PT (9.0-12.0) Seconds INR (0.9-1.1) APTT (21.0-31.0) Seconds PTT Ratio Sodium (136-145) mmol/L Potassium (3.5-5.1) mmol/L Chloride (98-107) mmol/L Carbon Dioxide (21-32) mmol/L Anion Gap (3-11) BUN (7-18) mg/dl Creatinine (0.6-1.4) mg/dl Est Cr Clr Drug Dosing ml/min Est GFR ( Amer) Est GFR (Non-Af Amer) BUN/Creatinine Ratio (10-20) Glucose (70-99) mg/dl POC Glucose 286 H 327 H* (70-99) Estimat Average Glucose mg/dl Hemoglobin A1c (4.5-5.6) % Calcium (8.5-10.1) mg/dl Magnesium (1.8-2.4) mg/dl Total Bilirubin (0.2-1) mg/dl AST (15-37) U/L ALT (12-78) U/L Alkaline Phosphatase (45-117) U/L Total Protein (6.4-8.2) gm/dl Albumin (3.4-5.0) gm/dl Globulin (2.5-4.0) gm/dl Albumin/Globulin Ratio (0.9-2) Beta-Hydroxybutyric Acd (0.2-2.81) mg/dl TSH (0.300-4.500) uIu/ml Blood Type Blood Type Recheck Antibody Screen Crossmatch 02/08/19 02/08/19 02/08/19 Range/Units 20:23 19:23 16:11 WBC (4.8-10.8) K/uL RBC (4.7-6.1) M/uL Hgb (14.0-18.0) g/dL Hct (42-52) % MCV (80-100) fL MCH (25-34) pg MCHC (32-36) g/dL RDW Std Deviation (36.4-46.3) fL RDW Coeff of Radha (11.5-14.5) % Plt Count (130-400) K/uL MPV (7.4-10.4) fL Immature Gran % (Auto) % Neut % (Auto) % Lymph % (Auto) % [place] % (Auto) % Eos % (Auto) % Baso % (Auto) % Immature Gran # (Auto) (0.00-0.02) K/uL Neut # (Auto) (1.4-6.5) K/uL Lymph # (Auto) (1.2-3.4) K/uL [place] # (Auto) (0.11-0.59) K/uL Eos # (Auto) (0-0.5) K/uL Baso # (Auto) (0-0.2) K/uL PT (9.0-12.0) Seconds INR (0.9-1.1) APTT (21.0-31.0) Seconds PTT Ratio Sodium (136-145) mmol/L Potassium (3.5-5.1) mmol/L Chloride (98-107) mmol/L Carbon Dioxide (21-32) mmol/L Anion Gap (3-11) BUN (7-18) mg/dl Creatinine (0.6-1.4) mg/dl Est Cr Clr Drug Dosing ml/min Est GFR ( Amer) Est GFR (Non-Af Amer) BUN/Creatinine Ratio (10-20) Glucose (70-99) mg/dl POC Glucose 379 H* 362 H* (70-99) Estimat Average Glucose mg/dl Hemoglobin A1c (4.5-5.6) % Calcium (8.5-10.1) mg/dl Magnesium (1.8-2.4) mg/dl Total Bilirubin (0.2-1) mg/dl AST (15-37) U/L ALT (12-78) U/L Alkaline Phosphatase (45-117) U/L Total Protein (6.4-8.2) gm/dl Albumin (3.4-5.0) gm/dl Globulin (2.5-4.0) gm/dl Albumin/Globulin Ratio (0.9-2) Beta-Hydroxybutyric Acd (0.2-2.81) mg/dl TSH (0.300-4.500) uIu/ml Blood Type O Positive Blood Type Recheck Antibody Screen NEGATIVE Crossmatch See Detail 02/08/19 02/08/19 02/08/19 Range/Units 16:11 16:11 16:11 WBC 9.44 (4.8-10.8) K/uL RBC 4.18 L (4.7-6.1) M/uL Hgb 12.9 L (14.0-18.0) g/dL Hct 37.3 L (42-52) % MCV 89.2 (80-100) fL MCH 30.9 (25-34) pg MCHC 34.6 (32-36) g/dL RDW Std Deviation 42.3 (36.4-46.3) fL RDW Coeff of Radha 13.0 (11.5-14.5) % Plt Count 209 (130-400) K/uL MPV 9.9 (7.4-10.4) fL Immature Gran % (Auto) 0.1 % Neut % (Auto) 70.0 % Lymph % (Auto) 23.3 % [place] % (Auto) 5.3 % Eos % (Auto) 1.1 % Baso % (Auto) 0.2 % Immature Gran # (Auto) 0.01 (0.00-0.02) K/uL Neut # (Auto) 6.61 H (1.4-6.5) K/uL Lymph # (Auto) 2.20 (1.2-3.4) K/uL [place] # (Auto) 0.50 (0.11-0.59) K/uL Eos # (Auto) 0.10 (0-0.5) K/uL Baso # (Auto) 0.02 (0-0.2) K/uL PT 11.0 (9.0-12.0) Seconds INR 1.1 (0.9-1.1) APTT 28.6 (21.0-31.0) Seconds PTT Ratio 1.1 Sodium 136 (136-145) mmol/L Potassium 4.1 (3.5-5.1) mmol/L Chloride 107 (98-107) mmol/L Carbon Dioxide 21 (21-32) mmol/L Anion Gap 8.0 (3-11) BUN 32 H (7-18) mg/dl Creatinine 1.51 H (0.6-1.4) mg/dl Est Cr Clr Drug Dosing 40.7 ml/min Est GFR ( Amer) 52.4 Est GFR (Non-Af Amer) 45.2 BUN/Creatinine Ratio 21.3 H (10-20) Glucose 368 H* (70-99) mg/dl POC Glucose (70-99) Estimat Average Glucose mg/dl Hemoglobin A1c (4.5-5.6) % Calcium 8.9 (8.5-10.1) mg/dl Magnesium (1.8-2.4) mg/dl Total Bilirubin 0.4 (0.2-1) mg/dl AST 11 L (15-37) U/L ALT 28 (12-78) U/L Alkaline Phosphatase 99 (45-117) U/L Total Protein 5.4 L (6.4-8.2) gm/dl Albumin 2.7 L (3.4-5.0) gm/dl Globulin 2.7 (2.5-4.0) gm/dl Albumin/Globulin Ratio 1.0 (0.9-2) Beta-Hydroxybutyric Acd 1.95 (0.2-2.81) mg/dl TSH (0.300-4.500) uIu/ml Blood Type Blood Type Recheck Antibody Screen Crossmatch Diagnostic Findings US duplex mesenteric CLINICAL HISTORY: rectal bleeding ? ischemic colitis COMPARISON STUDY: Abdomen and pelvis CT 11/29/2013. FINDINGS: Suboptimal study due to overlying bowel gas obscuring the majority of the mesenteric vessels. The proximal superior mesenteric artery demonstrates at least off ossific 258 cm/s and the proximal to mid celiac artery demonstrate a peak systolic velocity of 289 cm/s. The remaining mesenteric vessels were not visualized. IMPRESSION: Elevated peak systolic velocities within the proximal superior mesenteric artery and proximal to mid celiac artery consistent with areas of hemodynamically significant stenosis. Medications Administered Current Inpatient Medications Acetaminophen (Tylenol) 650 mg PO Q4H PRN PRN Reason: Pain or Fever Stop: 03/10/19 19:50 Atorvastatin Calcium (Lipitor) 40 mg PO DAILY BETO Stop: 03/11/19 08:59 Last Admin: 02/09/19 08:20 Dose: 40 mg Documented by: Dextrose (Dextrose 50%) 25 - 50 ml IV UD PRN; Protocol PRN Reason: Hypoglycemia Protocol Stop: 03/10/19 19:50 Glucagon (Glucagen) 1 mg SQ UD PRN; Protocol PRN Reason: Hypoglycemia Protocol Stop: 03/10/19 19:50 Glucose (Dex4 Glucose) 4 - 8 tabs PO UD PRN; Protocol PRN Reason: Hypoglycemia Protocol Stop: 03/10/19 19:50 Glucose (Glucose 40%) 15 - 30 gm PO UD PRN; Protocol PRN Reason: Hypoglycemia Protocol Stop: 03/10/19 19:50 Lactated Ringer's (Lr) 1,000 mls @ 125 mls/hr IV .Q8H BETO Stop: 02/09/19 13:29 Last Admin: 02/09/19 04:55 Dose: 125 mls/hr Documented by: Insulin Aspart (Novolog Flexpen) 0 units SC ACHS [facility] Stop: 03/11/19 11:29 Insulin Glargine (Lantus Solostar Pen) 10 units SC QAM [facility]; Protocol Stop: 03/11/19 08:59 Last Admin: 02/09/19 08:21 Dose: 10 units Documented by: Miscellaneous (Carbohydrates For Hypoglycemia) 15 - 30 gm PO UD PRN PRN Reason: Hypoglycemia Protocol Stop: 03/10/19 19:50 Miscellaneous Information (Consult Glycemic Management Pharmacy) 1 ea N/A UD PRN; Protocol PRN Reason: Consult Stop: 03/10/19 19:53 Multivitamins (Multivitamin Tab) 1 tab PO DAILY [facility] Stop: 03/11/19 08:59 Last Admin: 02/09/19 08:20 Dose: 1 tab Documented by: Ondansetron HCl (Zofran) 4 mg IV Q6H PRN PRN Reason: Nausea Stop: 03/10/19 19:50 Pantoprazole Sodium (Protonix) 40 mg PO QAM [facility] Stop: 03/11/19 09:14
[2019-02-09] MEDS: PANTOprazole 40 MG TAB PO SCH (10:37)
--- NOTE | 2019-02-09 11:47 | Gastrointestinal Consultation ---
Date of Consultation February 09, 2019 Assessment & Plan (1) Rectal bleed: Pt is a 73 y/o male admitted w rectal bleeding w associated lower mild abd cramping, syncope and noted to be hypotensive & hyperglycemic on admission. He hasn't had any more rectal bleeding overnight and abd exam benign this AM. H/H did drop overnight ->12/02 partly i believe is dilutional from IVF resuscitation. DDx: diverticular bleeding vs ischemic colitis. - Stool cx and Cdiff if any BMs - Obtain mesenteric doppler to r/o ischemia - PPI gtt DC'd , changed to Protonix 40mg PO BID - Recommend eventual colonoscopy in 4-6 week's time. Supervising Physician Co-Signing Physician Notes I have seen and examined the patient and discussed the management with SULAIMAN Barber. 73 yo male admitted with mostly painless rectal bleeding with syncope. No significant tachycardia or hgb drop. PE - well nourished male in nad, HEENT- perrla, CV- rrr no mrg, Pulm- CTAB, Abd - soft nt nd +bs, Ext - no hira, Skin- no rashes noted Labs reviewed Last colonoscopy reportedly 20 years ago Not on blood thinners Suspect he had a self-limited diverticular bleed. However given reports from his family members of some abdominal pain with this bleeding, though patient does not state that- would obtain mesenteric doppler to evaluate mesenteric vasculature given he can't obtain a CT A/P with IV contrast due to renal issues. If normal, ok to dc home with outpatient colonoscopy in 4- 6 weeks to rule out ischemic bowel as a reason for his rectal bleeding. Family was fine with this plan during discussion with them. History of Present Illness Reason for Consultation: Rectal Bleed Requesting Physician: Dr. Jacek Collado Attending Physician: Dr. Evangelina Mendez History of Present Illness Pt is a 73 y/o male who presented yesterday w rectal bleeding and syncope. He was in [employer] early afternoon and felt lower abd pain. When he tried to defecate he passed only bright red blood w/o stools. He denies any rectal bleeding, or burning. He reports total of 5 bloody BMs prior and eventually had syncope prior to ambulance called to take him to the ED. He had 2 more episodes of rectal bleeding while waiting in ED. BP was 80s/40s in ED. H/H 12. initially. BSG >300s. Has ASHLEE BUN/Cr 32/1.5. He was given IVF resuscitation, started on PPI gtt. Currently hemodynamically stable, H/H 12/02. BUN/Cr normal now. BSG 100s. He denies any more rectal bleeding overnight. Pt denies any anticoagulations. He does take baby ASA daily. He denies any ETOH, tobacco, NSAIDs. He did recall having colonoscopy over 20 yrs ago but cannot rec all results. He denies family hx of colorectal ca. Allergies Allergy/AdvReac Type Severity Reaction Status Date / Time No Known Allergies Allergy Unverified 02/08/19 17:09 Home Medications Home Medications Medication Instructions Recorded Confirmed Type aspirin [Aspir-81] 81 mg PO DAILY 02/08/19 02/08/19 History atorvastatin [Lipitor] 40 mg PO DAILY 02/08/19 02/08/19 History docusate sodium 100 mg PO DAILY 02/08/19 02/08/19 History insulin aspart U-100 [Novolog 10 unit SUBCUT TIDM 02/08/19 02/08/19 History Flexpen U-100 Insulin] insulin glargine [Lantus Solostar 18 unit SUBCUT QAM 02/08/19 02/09/19 History U-100 Insulin] lisinopril 20 mg PO DAILY 02/08/19 02/08/19 History multivitamin 1 tab PO DAILY 02/08/19 02/08/19 History Patient History Medical History Acute kidney injury (Inactive 12/01/13) BPH (benign prostatic hypertrophy) with urinary retention (Chronic) "Present occultly for a while" Diabetes mellitus type II, uncontrolled (Chronic) Hernia HLD (hyperlipidemia) (Chronic) HTN (hypertension) (Chronic) Surgical History History of ankle surgery Family History Other Diabetes Social History Communication Ability: Effective Beliefs That Will Affect Care: None Current Living Situation: Spouse current occupational status: employed 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 Other Information That Helps Us Care for You: No Feels Safe at Home: Yes Safety Concerns: Feels Safe At This Time Smoking Status: Never smoker Hx Alcohol Use: No Hx Substance Use: No Review of Systems Review of Systems: All systems reviewed & are unremarkable except as noted in HPI & below Physical Exam Constitutional: WD/WN, vitals as above well groomed, cooperative and comfortable Eyes: PERRL, conjunctivae normal, anicteric sclerae ENMT: external ear and nose normal, oropharynx normal Respiratory: normal respiratory effort, lungs clear to auscultation Cardiovascular: RRR, no murmur, no edema Gastrointestinal (Abdomen): normal bowel sounds, soft, nontender, no hepatosplenomegaly Skin: no rashes, warm and dry no jaundice Psychiatric: A+Ox3, euthymic affect Lymphatic: no lymphedema Results & Data Vital Signs (Past 12 Hours) Vital Signs Temp Pulse Pulse Resp BP Pulse Ox 02/09/19 09:51 86 02/09/19 07:51 36.9 C 86 18 101/63 96 02/09/19 03:18 37.1 C 84 18 100/59 L 96
--- NOTE | 2019-02-09 14:49 | Ultrasound Report ---
US duplex mesenteric CLINICAL HISTORY: rectal bleeding ? ischemic colitis COMPARISON STUDY: Abdomen and pelvis CT 11/29/2013. FINDINGS: Suboptimal study due to overlying bowel gas obscuring the majority of the mesenteric vessel s. The proximal superior mesenteric artery demonstrates at least off ossific 258 cm/s and the proxima l to mid celiac artery demonstrate a peak systolic velocity of 289 cm/s. The remaining mesenteric ves sels were not visualized. IMPRESSION: Elevated peak systolic velocities within the proximal superior mesenteric artery and pro ximal to mid celiac artery consistent with areas of hemodynamically significant stenosis. Electronically signed by: Michi Jaramillo M.D. 02/09/2019 2:48 PM
[2019-02-09 15:49] LABS: Basophils # (auto) 0.01 K/uL (0-0.2); Basophils % (auto) 0.2 %; Eosinophils # (auto) 0.08 K/uL (0-0.5); Eosinophils % (auto) 1.3 %; Hematocrit (blood only) 25.7 % (42-52); Hemoglobin 8.8 g/dL (14.0-18.0); Immature Granulocytes # (auto) 0.01 K/uL (0.00-0.02); Immature Granulocytes % (auto) 0.2 %; Lymphocytes # (auto) 1.78 K/uL (1.2-3.4); Lymphocytes % (auto) 28.3 %; Mean Corpuscular Hemoglobin 30.6 pg (25-34); Mean Corpuscular Hgb Conc 34.2 g/dL (32-36); Mean Corpuscular Volume 89.2 fL (80-100); Mean Platelet Volume 9.9 fL (7.4-10.4); Monocytes # (auto) 0.45 K/uL (0.11-0.59); Monocytes % (auto) 7.2 %; Neutrophils # (auto) 3.96 K/uL (1.4-6.5); Neutrophils % (auto) 62.8 %; Platelet Count 163 K/uL (130-400); RDW Coefficient of Variation 13.3 % (11.5-14.5); RDW Standard Deviation 43.1 fL (36.4-46.3); Red Blood Count 2.88 M/uL (4.7-6.1); White Blood Count 6.29 K/uL (4.8-10.8)
[2019-02-10 07:06] LABS: Hematocrit (blood only) 26.7 % (42-52); Hemoglobin 9.1 g/dL (14.0-18.0); Mean Corpuscular Hgb Conc 34.1 g/dL (32-36); Mean Corpuscular Volume 90.8 fL (80-100); Mean Platelet Volume 9.5 fL (7.4-10.4); Platelet Count 158 K/uL (130-400); RDW Coefficient of Variation 13.2 % (11.5-14.5); RDW Standard Deviation 43.9 fL (36.4-46.3); Red Blood Count 2.94 M/uL (4.7-6.1); White Blood Count 5.34 K/uL (4.8-10.8)
[2019-02-10 07:52] LABS: BUN Creatinine Ratio 20.2 (10-20); Calcium 8.5 mg/dl (8.5-10.1); Creatinine Clr Calc Pharmacy 63.4 ml/min; Est GFR (African American) 89.4; Est GFR (Non-African American) 77.1
[2019-02-10] MEDS ORDERED: INSULIN GLARGINE SOLOSTAR 100 UNITS/ML 3 ML PEN SC SCH (08:00)
[2019-02-10] MEDS: INSULIN GLARGINE SOLOSTAR 100 UNITS/ML 3 ML PEN SC SCH (08:55)
[2019-02-10] MEDS: ATORVASTATIN 40 MG TAB PO SCH (08:55)
[2019-02-10] MEDS: PANTOprazole 40 MG TAB PO SCH (08:55)
[2019-02-10] MEDS: MULTIVITAMIN TAB PO SCH (08:55)
--- NOTE | 2019-02-10 09:58 | Emergency Department Note ---
Entered by Jazmyn Gonzalez acting as a scribe for History of Present Illness General Chief complaint: Rectal Bleed Stated complaint: RECTAL BLEED Time Seen by Provider: 02/08/19 15:57 History of Present Illness Provider complaint: rectal bleeding Onset (ago): hour(s) 8 Pain Consistency: + other (episode) Quality: + other (rectal bleeding) Associated symptoms: + denies other symptoms (pain, abdominal pain, lightheade dness, trauma, blood thinner use, recent travel), + syncope and + other (6 total episodes, blood has been bright red and also maroon/black, blood clots presents); no chest pain Treatments prior to arrival: none The patient is a 73 year old male who presents to the ED with complaints of an episode of rectal bleeding that started 8 hours ago. The patient states that he had a total of six episodes of bloody stools in his commode today. The patient states that his stool has some bright red blood and some maroon/black blood. The patient states that there were also blood clots on his stool. The patient states that when he stood up from the commode, he had a brief episode of syncope. The patient denies all pain including chest pain and abdominal pain, shortness of breath, lightheadedness, trauma, blood thinner use and recent travel. The patient states that he has not had any treatments prior to arrival. Home Medications Home Medications Medication Instructions Recorded Confirmed Type aspirin [Aspir-81] 81 mg PO DAILY 02/08/19 02/08/19 History atorvastatin [Lipitor] 40 mg PO DAILY 02/08/19 02/08/19 History docusate sodium 100 mg PO DAILY 02/08/19 02/08/19 History insulin aspart U-100 [Novolog 10 unit SUBCUT TIDM 02/08/19 02/08/19 History Flexpen U-100 Insulin] insulin glargine [Lantus Solostar 18 unit SUBCUT QAM 02/08/19 02/09/19 History U-100 Insulin] lisinopril 20 mg PO DAILY 02/08/19 02/08/19 History multivitamin 1 tab PO DAILY 02/08/19 02/08/19 History Allergies Allergy/AdvReac Type Severity Reaction Status Date / Time No Known Allergies Allergy Unverified 02/08/19 17:09 Past Med/Surg History Medical History Acute kidney injury (Inactive 12/01/13) BPH (benign prostatic hypertrophy) with urinary retention (Chronic) "Present occultly for a while" Diabetes mellitus type II, uncontrolled (Chronic) Hernia HLD (hyperlipidemia) (Chronic) HTN (hypertension) (Chronic) Surgical History History of ankle surgery Family History Other Diabetes Social History Communication Ability: Effective Beliefs That Will Affect Care: None Current Living Situation: Spouse current occupational status: employed 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 and A total of 10 systems reviewed and were otherwise negative Physical Exam Vital Signs Vital Signs - 24 hr 02/08/19 15:28 02/08/19 15:41 02/08/19 16:21 Temperature 36.8 C Temperature Source Oral Oral Pulse Rate 96 H Pulse Rate from SpO2 Sensor Pulse Rhythm Regular Respiratory Rate 18 Respiratory Effort / Characteristics Non-Labored Respiratory Depth Normal Blood Pressure 111/86 Blood Pressure Mean 94 Blood Pressure Position Lying Pulse Oximetry 97 97 Oxygen Delivery Method Room Air Room Air Sepsis Recent Fever Within 48 Hours No Sepsis Action Taken by Nursing No Action Required 02/08/19 16:56 02/08/19 17:00 02/08/19 17:30 Temperature Temperature Source Pulse Rate 64 61 75 Pulse Rate from SpO2 Sensor 64 81 75 Pulse Rhythm Respiratory Rate 22 21 26 H Respiratory Effort / Characteristics Respiratory Depth Blood Pressure 82/46 L 97/75 L 106/49 L Blood Pressure Mean 53 77 78 Blood Pressure Position Pulse Oximetry 97 97 99 Oxygen Delivery Method Room Air Room Air Room Air Sepsis Recent Fever Within 48 Hours Sepsis Action Taken by Nursing 02/08/19 18:00 02/08/19 18:01 02/08/19 18:13 Temperature Temperature Source Pulse Rate 66 68 68 Pulse Rate from SpO2 Sensor 68 67 70 Pulse Rhythm Respiratory Rate 20 14 21 Respiratory Effort / Characteristics Respiratory Depth Blood Pressure 83/51 L 88/56 L Blood Pressure Mean 61 67 Blood Pressure Position Pulse Oximetry 99 99 Oxygen Delivery Method Sepsis Recent Fever Within 48 Hours Sepsis Action Taken by Nursing 02/08/19 18:30 Temperature Temperature Source Pulse Rate 70 Pulse Rate from SpO2 Sensor 69 Pulse Rhythm Respiratory Rate 18 Respiratory Effort / Characteristics Respiratory Depth Blood Pressure 89/53 L Blood Pressure Mean 65 Blood Pressure Position Pulse Oximetry 100 Oxygen Delivery Method Room Air Sepsis Recent Fever Within 48 Hours Sepsis Action Taken by Nursing General: Non-ill appearing older male, in no acute distress. HEENT: Normal cephalic atraumatic. Pupils are equal round and reactive to light. Extraocular movements are intact. Oropharynx is pink with moist mucous membranes. No swelling of the mouth lips or tongue. Neck: Supple with a midline trachea. No meningeal signs or stiffness, no JVD or bruits. No Stridor. Chest: Clear to auscultation bilaterally. No wheezes or rhonchi. No increased work of breathing. Heart: regular rate and rhythm. Abdomen: Soft, nontender and nondistended without rebound guarding or rigidity. Left inguinal hernia which is reducible and not incarcerated, red or tender. Extremities: No cyanosis clubbing or edema. No calf tenderness or asymmetry Spine/Back. Non tender to palpation. No CVA tenderness Skin: Good turgor without rashes. Neurologic exam: Cranial nerves two through 12 are intact. Motor and sensation are intact and symmetrical throughout. Course Course 1559: Past medical records reviewed. The patient was evaluated in room A04B. A complete history and physical exam was performed. 1656: I reevaluated the patient because he had a syncopal episode after getting an IV. The patient states that he feels lightheaded. We will administer fluids now. There is no evidence of further GI bleeding. 1716: I reevaluated the patient and he consented for blood transfusion if needed. His blood pressure has improve from 81 systolic to 97 systolic. The patient states that he is feeling better. 1723: I discussed the patient's case with Dr. Kenny Oleary. She will evaluate the patient for further management. 1737: I reevaluated the patient and he is looking better. Dr. Alcaraz is in the room with the patient now. Consultations Consultation #1: I discussed the patient's case with Dr. Kieran- [facility]. She will evaluate the patient for further management. Time: 17:23 Administered Medications Atorvastatin Calcium (Lipitor) 40 mg PO DAILY [facility] Stop: 03/11/19 08:59 Last Admin: 02/10/19 08:55 Dose: 40 mg Documented by: [id number] Admin: 02/09/19 08:20 Dose: 40 mg Documented by: [id number] Insulin Aspart (Novolog Flexpen) 0 units SC ACHS [facility] Stop: 03/11/19 11:29 Last Admin: 02/09/19 20:57 Dose: 3 units Documented by: [id number] Cosigned by: [id number] Admin: 02/09/19 17:26 Dose: 5 units Documented by: [id number] Cosigned by: [id number] Admin: 02/09/19 12:18 Dose: 10 units Documented by: [id number] Cosigned by: [id number] Insulin Glargine (Lantus Solostar Pen) [facility] [place] Stop: 03/11/19 08:59 Last Admin: 02/10/19 08:55 Dose: 10 units Documented by: [id number] Cosigned by: [id number] Admin: 02/09/19 08:21 Dose: 10 units Documented by: [id number] Cosigned by: [id number] Multivitamins (Multivitamin Tab) 1 tab PO DAILY [facility] Stop: 03/11/19 08:59 Last Admin: 02/10/19 08:55 Dose: 1 tab Documented by: [id number] Admin: 02/09/19 08:20 Dose: 1 tab Documented by: [id number] Pantoprazole Sodium (Protonix) 40 mg PO QAM [facility] Stop: 03/11/19 09:14 Last Admin: 02/10/19 08:55 Dose: 40 mg Documented by: [id number] Admin: 02/09/19 10:37 Dose: 40 mg Documented by: [id number] Discontinued Medications Sodium Chloride (Nss 1000ml) 1,000 mls @ 125 mls/hr IV .Q8H [facility] Stop: 02/09/19 00:14 Last Infusion: 02/08/19 21:36 Dose: 0 mls/hr Documented by: [id number] Infusion: 02/08/19 21:20 Dose: 125 mls/hr Documented by: [id number] Infusion: 02/08/19 20:44 Dose: 0 mls/hr Documented by: [id number] Admin: 02/08/19 20:01 Dose: 100 mls/hr Documented by: [id number] Infusion: 02/08/19 20:01 Dose: 100 mls/hr Documented by: [id number] Admin: 02/08/19 16:23 Dose: 100 mls/hr Documented by: [id number] Sodium Chloride (Nss 1000ml) 1,000 mls @ 999 mls/hr IV .Q1H1M ONE Stop: 02/08/19 17:59 Last Infusion: 02/08/19 19:51 Dose: 0 mls/hr Documented by: [id number] Admin: 02/08/19 17:36 Dose: 999 mls/hr Documented by: [id number] Pantoprazole Sodium 80 mg/ (Dextrose) 120 mls @ 480 mls/hr IV TODAY@1900 [facility] Stop: 02/08/19 19:14 Last Infusion: 02/08/19 20:23 Dose: 0 mls/hr Documented by: [id number] Admin: 02/08/19 20:01 Dose: 480 mls/hr Documented by: [id number] Pantoprazole Sodium 40 mg/ (Dextrose) 100 mls @ 20 mls/hr IV Q5H [facility] Stop: 03/10/19 19:14 Last Infusion: 02/09/19 09:38 Dose: 0 mls/hr Documented by: [id number] Admin: 02/09/19 04:55 Dose: 20 mls/hr Documented by: [id number] Infusion: 02/09/19 04:55 Dose: 20 mls/hr Documented by: [id number] Admin: 02/09/19 00:48 Dose: 20 mls/hr Documented by: [id number] Infusion: 02/09/19 00:48 Dose: 20 mls/hr Documented by: [id number] Admin: 02/08/19 20:01 Dose: 20 mls/hr Documented by: [id number] Sodium Chloride (Nss 1000ml) 1,000 mls @ 999 mls/hr IV .Q1H1M [facility] Stop: 02/08/19 21:32 Last Infusion: 02/08/19 21:19 Dose: 0 mls/hr Documented by: [id number] Admin: 02/08/19 20:44 Dose: 999 mls/hr Documented by: [id number] Insulin Human Regular 250 (units/ Sodium Chloride) 250 mls @ 0 mls/hr IV .Q0M [facility]; Protocol Stop: 03/10/19 20:59 Last Titration: 02/09/19 09:56 Dose: 0 units/hr, 0 mls/hr Documented by: [id number] Cosigned by: [id number] Titration: 02/09/19 05:00 Dose: 0 units/hr, 0 mls/hr Documented by: [id number] Cosigned by: [id number] Titration: 02/09/19 04:00 Dose: 2.8 units/hr, 2.8 mls/hr Documented by: [id number] Cosigned by: [id number] Titration: 02/09/19 03:00 Dose: 3.5 units/hr, 3.5 mls/hr Documented by: [id number] Cosigned by: [id number] Titration: 02/09/19 02:30 Dose: 0 units/hr, 0 mls/hr Documented by: [id number] Cosigned by: [id number] Titration: 02/09/19 01:30 Dose: 5.8 units/hr, 5.8 mls/hr Documented by: [id number] Cosigned by: [id number] Titration: 02/09/19 00:33 Dose: 5.8 units/hr, 5.8 mls/hr Documented by: [id number] Cosigned by: [id number] Titration: 02/08/19 23:30 Dose: 5.8 units/hr, 5.8 mls/hr Documented by: [id number] Cosigned by: [id number] Titration: 02/08/19 22:30 Dose: 4.8 units/hr, 4.8 mls/hr Documented by: [id number] Cosigned by: [id number] Admin: 02/08/19 21:17 Dose: 4 units/hr, 4 mls/hr Documented by: [id number] Cosigned by: [id number] Insulin Human Regular 5 units/ (Syringe) 5 mls @ 30 mls/min IV NOW STA Stop: 02/08/19 21:02 Last Admin: 02/08/19 21:17 Dose: 30 mls/min Documented by: [id number] Cosigned by: [id number] Lactated Ringer's (Lr) 1,000 mls @ 125 mls/hr IV .Q8H [facility] Stop: 02/09/19 13:29 Last Infusion: 02/09/19 13:35 Dose: 0 mls/hr Documented by: [id number] Admin: 02/09/19 04:55 Dose: 125 mls/hr Documented by: [id number] Infusion: 02/09/19 04:55 Dose: 125 mls/hr Documented by: [id number] Admin: 02/08/19 21:35 Dose: 125 mls/hr Documented by: [id number] Insulin Aspart (Novolog Flexpen) 0 units SC ACHS [facility] Stop: 03/10/19 20:59 Last Admin: 02/09/19 09:36 Dose: Not Given Documented by: [id number] Cosigned by: [id number] Admin: 02/08/19 21:38 Dose: Not Given Documented by: [id number] Cosigned by: [id number] Insulin Glargine (Lantus Solostar Pen) 10 units SC HS [facility] Stop: 03/10/19 20:59 Last Admin: 02/08/19 21:37 Dose: 10 units Documented by: [id number] Cosigned by: [id number] Insulin Human Regular (Novolin R U-100 Per Unit) 10 units IV NOW STA Stop: 02/08/19 19:13 Last Admin: 02/08/19 19:25 Dose: 10 units Documented by: [id number] Cosigned by: [id number] Lorazepam (Ativan) 0.25 mg PO NOW STA Stop: 02/09/19 05:27 Last Admin: 02/09/19 05:42 Dose: Not Given Documented by: [id number] Lorazepam (Ativan) 0.25 mg PO NOW STA Stop: 02/09/19 05:39 Last Admin: 02/09/19 05:42 Dose: 0.25 mg Documented by: [id number] Miscellaneous Information (Consult Glycemic Management Pharmacy) 1 ea N/A NOW STA; Protocol Stop: 02/08/19 18:35 Last Admin: 02/08/19 21:33 Dose: 1 ea Documented by: [id number] Critical Care Time Critical Care Time: Yes Total Critical Care Time: 40 I have personally spent greater than 40 minutes of critical care time in the direct management of this patient. This includes bedside care, interpretation of diagnostic studies, and testing, discussion with consultants, patient, and fa pricilla members, and other required patient management activities. This 40 minutes is in excess of all separately billable procedures. Medical Decision Making Differential Diagnosis Differentials include GI bleed, anemia, infection, trauma, arrhythmia, metabolic and electrolyte abnormality. Medical Records Attestation: I reviewed the patient's medical records. Home Medications Current Medication List: was personally reviewed by me Laboratory Data Attestation: I reviewed the patient's lab results. Result diagrams: 02/10/19 06:46 02/10/19 06:46 Lab Results 02/08/19 02/08/19 02/08/19 Range/Units 16:11 16:11 16:11 WBC 9.44 (4.8-10.8) K/uL RBC 4.18 L (4.7-6.1) M/uL Hgb 12.9 L (14.0-18.0) g/dL Hct 37.3 L (42-52) % MCV 89.2 (80-100) fL MCH 30.9 (25-34) pg MCHC 34.6 (32-36) g/dL RDW Std Deviation 42.3 (36.4-46.3) fL RDW Coeff of Radha 13.0 (11.5-14.5) % Plt Count 209 (130-400) K/uL MPV 9.9 (7.4-10.4) fL Immature Gran % (Auto) 0.1 % Neut % (Auto) 70.0 % Lymph % (Auto) 23.3 % Pender % (Auto) 5.3 % Eos % (Auto) 1.1 % Baso % (Auto) 0.2 % Immature Gran # (Auto) 0.01 (0.00-0.02) K/uL Neut # (Auto) 6.61 H (1.4-6.5) K/uL Lymph # (Auto) 2.20 (1.2-3.4) K/uL Pender # (Auto) 0.50 (0.11-0.59) K/uL Eos # (Auto) 0.10 (0-0.5) K/uL Baso # (Auto) 0.02 (0-0.2) K/uL PT 11.0 (9.0-12.0) Seconds INR 1.1 (0.9-1.1) APTT 28.6 (21.0-31.0) Seconds PTT Ratio 1.1 Sodium 136 (136-145) mmol/L Potassium 4.1 (3.5-5.1) mmol/L Chloride 107 (98-107) mmol/L Carbon Dioxide 21 (21-32) mmol/L Anion Gap 8.0 (3-11) BUN 32 H (7-18) mg/dl Creatinine 1.51 H (0.6-1.4) mg/dl Est Cr Clr Drug Dosing 40.7 ml/min Est GFR ( Amer) 52.4 Est GFR (Non-Af Amer) 45.2 BUN/Creatinine Ratio 21.3 H (10-20) Glucose 368 H* (70-99) mg/dl Calcium 8.9 (8.5-10.1) mg/dl Total Bilirubin 0.4 (0.2-1) mg/dl AST 11 L (15-37) U/L ALT 28 (12-78) U/L Alkaline Phosphatase 99 (45-117) U/L Total Protein 5.4 L (6.4-8.2) gm/dl Albumin 2.7 L (3.4-5.0) gm/dl Globulin 2.7 (2.5-4.0) gm/dl Albumin/Globulin Ratio 1.0 (0.9-2) Beta-Hydroxybutyric Acd 1.95 (0.2-2.81) mg/dl Blood Type Antibody Screen Crossmatch 02/08/19 Range/Units 16:11 WBC (4.8-10.8) K/uL RBC (4.7-6.1) M/uL Hgb (14.0-18.0) g/dL Hct (42-52) % MCV (80-100) fL MCH (25-34) pg MCHC (32-36) g/dL RDW Std Deviation (36.4-46.3) fL RDW Coeff of Radha (11.5-14.5) % Plt Count (130-400) K/uL MPV (7.4-10.4) fL Immature Gran % (Auto) % Neut % (Auto) % Lymph % (Auto) % Pender % (Auto) % Eos % (Auto) % Baso % (Auto) % Immature Gran # (Auto) (0.00-0.02) K/uL Neut # (Auto) (1.4-6.5) K/uL Lymph # (Auto) (1.2-3.4) K/uL Pender # (Auto) (0.11-0.59) K/uL Eos # (Auto) (0-0.5) K/uL Baso # (Auto) (0-0.2) K/uL PT (9.0-12.0) Seconds INR (0.9-1.1) APTT (21.0-31.0) Seconds PTT Ratio Sodium (136-145) mmol/L Potassium (3.5-5.1) mmol/L Chloride (98-107) mmol/L Carbon Dioxide (21-32) mmol/L Anion Gap (3-11) BUN (7-18) mg/dl Creatinine (0.6-1.4) mg/dl Est Cr Clr Drug Dosing ml/min Est GFR ( Amer) Est GFR (Non-Af Amer) BUN/Creatinine Ratio (10-20) Glucose (70-99) mg/dl Calcium (8.5-10.1) mg/dl Total Bilirubin (0.2-1) mg/dl AST (15-37) U/L ALT (12-78) U/L Alkaline Phosphatase (45-117) U/L Total Protein (6.4-8.2) gm/dl Albumin (3.4-5.0) gm/dl Globulin (2.5-4.0) gm/dl Albumin/Globulin Ratio (0.9-2) Beta-Hydroxybutyric Acd (0.2-2.81) mg/dl Blood Type O Positive Antibody Screen NEGATIVE Crossmatch See Detail Imaging Data Radiologist's Impression: Radiology results as stated below per my review and the radiologist's interpretation: XR chest 1V portable HISTORY: 73 years-old Male gi bleed acute GI bleed COMPARISON: Chest radiograph 01/03/2014 TECHNIQUE: Portable AP view of the chest FINDINGS: Cardiac silhouette is upper limits of normal in size. There is no pneumothorax, pleural effusion, focal airspace consolidation or overt pulmonary edema. Degenerative changes of the shoulders and spine. Mild left hemidiaphragmatic elevation. IMPRESSION: No acute process. The above report was generated using voice recognition software. It may contain grammatical, syntax or spelling errors. Electronically signed by: Caden Haynes M.D. 02/08/2019 4:40 PM ECG Data Attestation: I personally reviewed and interpreted this ECG as follows: Indication: + other (rectal bleed) Rate (beats per minute): 95 Rhythm: + normal sinus ECG ST segments: no ST depression and no ST elevation ECG Findings: no PACs and no PVCs Comparison ECG Date: from (01/03/2014) Change: no significant change Blood Pressure Blood Pressure Findings: Elevated blood pressure Blood Pressure Disposition: further management by hospitalist [facility] Narrative This patient comes in as described above. He is complaining of rectal bleeding that just started this afternoon. He said several episodes. He describes it as bright red but also dark. He said that he did pass out at home although he says that he does tend to pass out at the site of blood. He had some minimal abdominal discomfort. No fever or chills. no trauma. No history of any similar complaints. IV access was establishe.d initially he was hemodynamically stable he was hydrated with an IV normal saline bolus. He was typed and screened and multiple blood testing was obtained. His initial hemoglobin was 12.9. We established a second IV and got additional blood work and the patient did have a vasovagal episode and felt very lightheaded like he was going to pass out. His blood pressure dropped into the 80s he was given a liter IV normal saline bolus and responded. I think that this was most likely vasovagal rather than from the GI bleed however, I do believe that he has that going on as well. He needs to be admitted and monitored with his hemoglobin have a further GI evaluation to determine the cause of his bleeding. He has no electrolyte or metabolic abnormalities. When he dropped his blood pressure I did upgrade his type and screen to type and cross to have blood available. He does have 2 large-bore IVs in case he has any further issues and needs transfusion. I also did consent him for transfusion in the event that he would need it. Explained the risk and benefits of both the patient's family and and they both freely consent. [facility] Impression & Plan GI bleed, Vasovagal episode, Near syncope, Diffuse abdominal pain, Hypotensive episode Discharge Plan Visit Data *Final* Discharge Date/Time: 02/08/19 18:36 Chief Complaint: Rectal Bleed Stated Complaint: RECTAL BLEED ED Provider: Horace Chamberlain Discharge Problem: GI bleed, Vasovagal episode, Near syncope, Diffuse abdominal pain, Hypotensive episode Patient Disposition: Admitted As Inpatient Discharge Instructions Interventions: ED Discharge Assessment Last Done: 02/08/19 18:36 Discharge Problem: GI bleed Qualifiers: GI bleed type/associated pathology: unspecified gastrointestinal hemorrhage type Qualified Code(s): K92.2 - Gastrointestinal hemorrhage, unspecified The scribe's documentation has been prepared under my direction and personally reviewed by me in its entirety. I confirm that the note above accurately reflects all work, treatment, procedures, and medical decision making performed by me.
[2019-02-10] MEDS: INSULIN ASPART 100 UNITS/ML 3 ML PEN SC SCH ×4 (10:01→20:14)
--- NOTE | 2019-02-10 10:08 | Gastroenterology Progress Note ---
Date of Service February 10, 2019 Assessment & Plan (1) Rectal bleed: Pt is a 73 y/o male admitted w rectal bleeding w associated lower mild abd cramping, syncope and noted to be hypotensive & hyperglycemic on admission. Minimal rectal bleeding on 02/09 and abd exam benign this AM. H/H did drop with this bleeding 12->8.8, and slight increase this morning to 9.1. DDx: diverticular bleeding vs ischemic colitis. 1. Protonix 40mg PO BID 2. Recommend eventual colonoscopy in 4-6 week's time. Our office will contact him to arrange. 3. Will await vasc consult 4. Three daughters and one granddaughter in the room. Pts care, including most likely dx discussed and several questions answered. Supervising Physician Co-Signing Physician Notes No further bleeding Hgb stable No pain PE unchanged from yesterday Outpatient c -scope Subjective Mr. Jah Neil is ak 73 yr old male pt of Dr. Kelly with a hx of DM-2, HTN, BPH and hyperlipidemia who experienced 7 episodes of bright red rectal bleeding in quick succession with minimal cramping on 02/08. At that time, he also experienced a near syncopal episode. Hb 12.9 on arrival ->8.8 yesterday ->9.1 today. BUN 32->20. Most recent bleeding a small amt yesterday with a BM, followed by a small formed brown BM after. Mesenteric US yesterday with: Elevated peak systolic velocities within the proximal superior mesenteric artery and proximal to mid celiac artery consistent with areas of hemodynamically significant stenosis. Vascular surgery was consulted this morning. Today, HR 68, BP 138/67, pt denies any abdominal pain. No nausea/vomiting. No lightheadedness with ambulation to the bathroom. Hungry and asks to eat. Review of Systems Review of Systems: All systems reviewed & are unremarkable except as noted in HPI & below Physical Exam Constitutional: WD/WN, vitals as above Eyes: PERRL, conjunctivae normal, anicteric sclerae ENMT: external ear and nose normal, oropharynx normal Neck: trachea midline, no thyromegaly Respiratory: normal respiratory effort, lungs clear to auscultation Cardiovascular: RRR, no murmur, no edema Gastrointestinal (Abdomen): normal bowel sounds, soft, nontender, no hepatosplenomegaly Musculoskeletal: no cyanosis or clubbing, extremities motor strength 5/5 Skin: no rashes, warm and dry Neurologic: PERRL, EOMI, accommodation nl, no face palsy, no dysarthria Psychiatric: A+Ox3, euthymic affect Results & Data Vital Signs (Past 12 Hours) Vital Signs Temp Pulse Pulse Resp BP Pulse Ox 02/10/19 07:37 37.1 C 68 20 138/67 96 02/10/19 04:00 37 C 78 19 99/59 L 95 02/10/19 00:00 80 02/09/19 23:13 37.1 C 83 20 119/66 96
--- NOTE | 2019-02-10 10:26 | Hospitalist Progress Note ---
Date of Service February 10, 2019 Assessment & Plan (1) Rectal bleed: This is a 73-year-old male with a PMH of DM II, HTN and HLD who presents with rectal bleed -Endorsed 5 episodes of bright red blood with presence of clots and some dark blood prior to admission -No prior history of GI bleeds. Daily baby aspirin use -Has been intermittently hypotensive during vasovagal episodes but improved -Hgb stable at 12.9 on admission. Type & crossed and consented with 2u PRBCs held - Now Hgb trending down, likely partially secondary to dilution from IVF, and acute blood loss -Considered abdominal imaging on admission but did not want to give IV contrast in setting of ASHLEE -Afebrile, no leukocyosis so no abx given for now -Clear liquids diet, IVF -GI consulted -believe diverticular bleed versus ischemic colitis, stool culture and C. difficile, change PPI related to Protonix 40 mg p.o. twice daily recommend colonoscopy in 4 to 6 weeks time -Ordered mesenteric Doppler to rule out ischemia, given possible stenosis Vascular surgery was consulted (for poss. ischemic colitis) -Patient had additional bleed, after his ultrasound study, GI recommends that if patient continues to bleed, tagged RBC scan, GoLYTELY prep and n.p.o. after midnight for possible colonoscopy -Monitor labwork, vitals closely (2) Vasovagal syncope: Has had 2 episodes in reaction to sight of blood (on admission) -No reflexive tachycardia- HR has remained in normal range -received IV fluids, monitor on telemetry (3) Acute kidney injury: - now resolved Cr elevated on admission, at 1.51 (baseline Cr ~1.1). BUN/Cr ratio of 21 in setting of GI bleed -Received IV fluids -Hold lisinopril (4) Diabetes mellitus type II, uncontrolled: Hgb a1c of 11.9% in Nov 2017. Hgb A1c 11.7% (02/09/2019) -Takes insulin around [id number] after returning from work -BSG of 368 initially -Glycemic consult placed for further management, diabetic education - per building services coordinator pt does not check his BSG level at home, could use different supplies so he would be more compliant - will provide script for diabetic supplies on discharge (5) HTN (hypertension): Intermittently hypotensive -Holding lisinopril in setting of ASHLEE (6) BPH (benign prostatic hypertrophy) with urinary retention: History of urinary retention -Bladder scan qshift PRN (7) HLD (hyperlipidemia): Continue statin DVT Ppx: SCDs in setting of rectal bleed Code status: FULL PCP: Robin Dispo: Admitted to PCU. Plan to return home once medically stable. Subjective Pt is sitting up in chair in no acute distress, family at the bedside. No more BMs overnight. Last small BM per report not bloody, sent to lab. Denies any fever, chills, chest pain, dizziness, shortness of breath, abdominal pain, nausea, vomiting. Vascular consulted for possible ischemic colitis. GI plans colonoscopy in about 4 weeks. PPI PO BID Review of Systems Review of Systems: All systems reviewed & are unremarkable except as noted in HPI & below Constitutional: no fever and no chills Respiratory: no cough and no dyspnea Cardiovascular: no chest pain, no dyspnea on exertion, no palpitations and no edema Gastrointestinal: no abdominal pain, no nausea and no vomiting Physical Exam Physical Exam: General Appearance: Elderly male sitting up in bed, in NAD, conversing easily, + pale Head: normocephalic, atraumatic Eyes: normal inspection, PERRL, EOMI, conjunctivae normal, anicteric sclerae ENT: external ear and nose normal, oropharynx normal Neck: trachea midline, no thyromegaly normal visual inspection Respiratory: normal respiratory effort, lungs clear to auscultation, no wheeze, rales, rhonchi Cardiovascular: RRR no murmur, normal peripheral pulses. Vessels: no JVD or carotid bruit Chest: normal inspection of chest Abdomen/GI: normal bowel sounds, soft, nontender, nondistended, no guarding Extremities/MSK: no cyanosis or clubbing, extremities motor strength 5/5 Neurologic: PERRL, EOMI, accommodation nl, no face palsy, no dysarthria CN's II-XI intact bilaterally and moves all extremities Psychiatric: A+Ox3, euthymic affect Skin: no rashes, pale, warm/dry Results & Data Vital Signs (Past 12 Hours) Vital Signs Temp Pulse Pulse Resp BP Pulse Ox 02/10/19 07:37 37.1 C 68 20 138/67 96 02/10/19 04:00 37 C 78 19 99/59 L 95 02/10/19 00:00 80 12/05/19 23:13 37.1 C 83 20 119/66 96 Laboratory Results 02/10/19 02/10/19 02/10/19 Range/Units 06:46 06:46 06:46 WBC 5.34 (4.8-10.8) K/uL RBC 2.94 L (4.7-6.1) M/uL Hgb 9.1 L (14.0-18.0) g/dL Hct 26.7 L (42-52) % MCV 90.8 (80-100) fL MCH 31.0 (25-34) pg MCHC 34.1 (32-36) g/dL RDW Std Deviation 43.9 (36.4-46.3) fL RDW Coeff of Radha 13.2 (11.5-14.5) % Plt Count 158 (130-400) K/uL MPV 9.5 (7.4-10.4) fL Immature Gran % (Auto) % Neut % (Auto) % Lymph % (Auto) % Campbell % (Auto) % Eos % (Auto) % Baso % (Auto) % Immature Gran # (Auto) (0.00-0.02) K/uL Neut # (Auto) (1.4-6.5) K/uL Lymph # (Auto) (1.2-3.4) K/uL Campbell # (Auto) (0.11-0.59) K/uL Eos # (Auto) (0-0.5) K/uL Baso # (Auto) (0-0.2) K/uL Sodium 140 (136-145) mmol/L Potassium 4.0 (3.5-5.1) mmol/L Chloride 113 H (98-107) mmol/L Carbon Dioxide 23 (21-32) mmol/L Anion Gap 4.0 (3-11) BUN 20 H (7-18) mg/dl Creatinine 0.97 (0.6-1.4) mg/dl Est Cr Clr Drug Dosing 63.4 ml/min Est GFR ( Amer) 89.4 Est GFR (Non-Af Amer) 77.1 BUN/Creatinine Ratio 20.2 H (10-20) Glucose 142 H (70-99) mg/dl POC Glucose (70-99) Calcium 8.5 (8.5-10.1) mg/dl Stl C. diff Tox B Gene (Neg) Hepatitis C Ab Screen Neg (Neg) Crossmatch 02/09/19 02/09/19 02/09/19 Range/Units Unknown 20:08 16:14 WBC (4.8-10.8) K/uL RBC (4.7-6.1) M/uL Hgb (14.0-18.0) g/dL Hct (42-52) % MCV (80-100) fL MCH (25-34) pg MCHC (32-36) g/dL RDW Std Deviation (36.4-46.3) fL RDW Coeff of Radha (11.5-14.5) % Plt Count (130-400) K/uL MPV (7.4-10.4) fL Immature Gran % (Auto) % Neut % (Auto) % Lymph % (Auto) % Campbell % (Auto) % Eos % (Auto) % Baso % (Auto) % Immature Gran # (Auto) (0.00-0.02) K/uL Neut # (Auto) (1.4-6.5) K/uL Lymph # (Auto) (1.2-3.4) K/uL Campbell # (Auto) (0.11-0.59) K/uL Eos # (Auto) (0-0.5) K/uL Baso # (Auto) (0-0.2) K/uL Sodium (136-145) mmol/L Potassium (3.5-5.1) mmol/L Chloride (98-107) mmol/L Carbon Dioxide (21-32) mmol/L Anion Gap (3-11) BUN (7-18) mg/dl Creatinine (0.6-1.4) mg/dl Est Cr Clr Drug Dosing ml/min Est GFR ( Amer) Est GFR (Non-Af Amer) BUN/Creatinine Ratio (10-20) Glucose (70-99) mg/dl POC Glucose 186 H 139 H (70-99) Calcium (8.5-10.1) mg/dl Stl C. diff Tox B Gene Negative Cdiff Gene (Neg) Hepatitis C Ab Screen (Neg) Crossmatch 02/09/19 02/09/19 02/08/19 Range/Units 15:22 11:19 16:11 WBC 6.29 (4.8-10.8) K/uL RBC 2.88 L (4.7-6.1) M/uL Hgb 8.8 L (14.0-18.0) g/dL Hct 25.7 L (42-52) % MCV 89.2 (80-100) fL MCH 30.6 (25-34) pg MCHC 34.2 (32-36) g/dL RDW Std Deviation 43.1 (36.4-46.3) fL RDW Coeff of Radha 13.3 (11.5-14.5) % Plt Count 163 (130-400) K/uL MPV 9.9 (7.4-10.4) fL Immature Gran % (Auto) 0.2 % Neut % (Auto) 62.8 % Lymph % (Auto) 28.3 % Campbell % (Auto) 7.2 % Eos % (Auto) 1.3 % Baso % (Auto) 0.2 % Immature Gran # (Auto) 0.01 (0.00-0.02) K/uL Neut # (Auto) 3.96 (1.4-6.5) K/uL Lymph # (Auto) 1.78 (1.2-3.4) K/uL Campbell # (Auto) 0.45 (0.11-0.59) K/uL Eos # (Auto) 0.08 (0-0.5) K/uL Baso # (Auto) 0.01 (0-0.2) K/uL Sodium (136-145) mmol/L Potassium (3.5-5.1) mmol/L Chloride (98-107) mmol/L Carbon Dioxide (21-32) mmol/L Anion Gap (3-11) BUN (7-18) mg/dl Creatinine (0.6-1.4) mg/dl Est Cr Clr Drug Dosing ml/min Est GFR ( Amer) Est GFR (Non-Af Amer) BUN/Creatinine Ratio (10-20) Glucose (70-99) mg/dl POC Glucose 168 H (70-99) Calcium (8.5-10.1) mg/dl Stl C. diff Tox B Gene (Neg) Hepatitis C Ab Screen (Neg) Crossmatch See Detail Medications Administered Current Inpatient Medications Acetaminophen (Tylenol) 650 mg PO Q4H PRN PRN Reason: Pain or Fever Stop: 03/10/19 19:50 Atorvastatin Calcium (Lipitor) 40 mg PO DAILY [facility] Stop: 03/11/19 08:59 Last Admin: 02/10/19 08:55 Dose: 40 mg Documented by: Dextrose (Dextrose 50%) 25 - 50 ml IV UD PRN; Protocol PRN Reason: Hypoglycemia Protocol Stop: 03/10/19 19:50 Glucagon (Glucagen) 1 mg SQ UD PRN; Protocol PRN Reason: Hypoglycemia Protocol Stop: 03/10/19 19:50 Glucose (Dex4 Glucose) 4 - 8 tabs PO UD PRN; Protocol PRN Reason: Hypoglycemia Protocol Stop: 03/10/19 19:50 Glucose (Glucose 40%) 15 - 30 gm PO UD PRN; Protocol PRN Reason: Hypoglycemia Protocol Stop: 03/10/19 19:50 Insulin Aspart (Novolog Flexpen) 0 units SC ACHS [facility] Stop: 03/11/19 11:29 Last Admin: 02/10/19 10:01 Dose: Not Given Documented by: Insulin Glargine (Lantus Solostar Pen) 10 units SC QAM [facility]; Protocol Stop: 03/11/19 08:59 Last Admin: 02/10/19 08:55 Dose: 10 units Documented by: Miscellaneous (Carbohydrates For Hypoglycemia) 15 - 30 gm PO UD PRN PRN Reason: Hypoglycemia Protocol Stop: 03/10/19 19:50 Miscellaneous Information (Consult Glycemic Management Pharmacy) 1 ea N/A UD PRN; Protocol PRN Reason: Consult Stop: 03/10/19 19:53 Multivitamins (Multivitamin Tab) 1 tab PO DAILY [facility] Stop: 03/11/19 08:59 Last Admin: 02/10/19 08:55 Dose: 1 tab Documented by: Ondansetron HCl (Zofran) 4 mg IV Q6H PRN PRN Reason: Nausea Stop: 03/10/19 19:50 Pantoprazole Sodium (Protonix) 40 mg PO QAM [facility] Stop: 03/11/19 09:14 Last Admin: 02/10/19 08:55 Dose: 40 mg Documented by:
--- NOTE | 2019-02-10 11:49 | Consultation ---
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 Pt's sx appear to be inconsistent with mesenteric ischemia and have resolved. Pt has not experienced any weight loss or changes in eating habits resulting from prandial pain. Recommend pt undergo CTA abd/pelvis when renal fxn allows for completeness. No indications for vascular surgical intervention at this time. Discussed with hospitalist. Please call if needed. History of Present Illness Reason for Consultation: SMA/celiac stenosis Attending Physician: Jacek Collado MD History of Present Illness 73 yo m with hx of DMII, HTN, hyperlipidemia, BPH, admitted with lower GI bleed, seen in consultation today for possible ischemic colitis. Pt states he had at least 4-5 episodes of BRBPR prior to arrival. He notes that he "faints at the sight of blood," and had 2 episodes of syncope upon arrival to ED here. Pt states he developed LLQ and low abd pain similar to previous pain from a L inguinal hernia that he has been experiencing for past 20 yrs. Has never had bleeding before. Pain has since resolved and pt has not had rectal bleeding for 24 hrs at this point. Denies hx of arterial disease or smoking. 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 Denies hx of post prandial pain, or appetite limitations. Denies changes in eating habits or weight loss. States has been similar weight for many years. States he generally eats 1-2 good sized meals(ex. 2 hamburgers) per day, depending on his work schedule. Pt denies fever, chills, chest pain, N/V, rest pain, claudication, other complaints. Mesenteric US demonstrates mild/moderate stenosis of SMA and celiac arteries by velocity criteria, however, images were unable to eval thoroughly and JUSTINO was not eval at all. Allergies Allergy/AdvReac Type Severity Reaction Status Date / Time No Known Allergies Allergy Unverified 02/08/19 17:09 Home Medications Home Medications Medication Instructions Recorded Confirmed Type aspirin [Aspir-81] 81 mg PO DAILY 02/08/19 02/08/19 History atorvastatin [Lipitor] 40 mg PO DAILY 02/08/19 02/08/19 History docusate sodium 100 mg PO DAILY 02/08/19 02/08/19 History insulin aspart U-100 [Novolog 10 unit SUBCUT TIDM 02/08/19 02/08/19 History Flexpen U-100 Insulin] insulin glargine [Lantus Solostar 18 unit SUBCUT QAM 02/08/19 02/09/19 History U-100 Insulin] lisinopril 20 mg PO DAILY 02/08/19 02/08/19 History multivitamin 1 tab PO DAILY 02/08/19 02/08/19 History Patient History Medical History Acute kidney injury (Inactive 12/01/13) BPH (benign prostatic hypertrophy) with urinary retention (Chronic) "Present occultly for a while" Diabetes mellitus type II, uncontrolled (Chronic) Hernia HLD (hyperlipidemia) (Chronic) HTN (hypertension) (Chronic) Surgical History History of ankle surgery Family History Other Diabetes Social History Communication Ability: Effective Beliefs That Will Affect Care: None Current Living Situation: Spouse current occupational status: employed 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 Other Information That Helps Us Care for You: No Feels Safe at Home: Yes Safety Concerns: Feels Safe At This Time Smoking Status: Never smoker Hx Alcohol Use: No Hx Substance Use: No Review of Systems Review of Systems: All systems reviewed & are unremarkable except as noted in HPI & below Physical Exam Constitutional: WD/WN, vitals as above healthy appearing and cooperative; not in distress and not combative Eyes: PERRL, conjunctivae normal, anicteric sclerae ENMT: external ear and nose normal, oropharynx normal Ears: no hearing impairment Neck: trachea midline Respiratory: normal respiratory effort, lungs clear to auscultation Cardiovascular: RRR, no murmur, no edema Vessels: normal peripheral pulses, posterior tibial pulses present, dorsalis pedis pulses present, brachial pulses present and radial pulses present; no carotid bruit, no abdominal aortic bruit and no femoral bruit Extremities: normal capillary refill; no edema Gastrointestinal (Abdomen): normal bowel sounds, soft, nontender, no hepatosplenomegaly Musculoskeletal: no cyanosis or clubbing, extremities motor strength 5/5 Skin: no rashes, warm and dry Neurologic: awake; + does not move all extremities, no focal motor deficits and not confused Psychiatric: A+Ox3, euthymic affect Results & Data Vital Signs (Past 12 Hours) Vital Signs Temp Pulse Pulse Resp BP Pulse Ox 02/10/19 08:00 68 02/10/19 07:37 37.1 C 68 20 138/67 96 02/10/19 04:00 37 C 78 19 99/59 L 95 02/10/19 00:00 80
[2019-02-10] MEDS ORDERED: OPTIRAY 320 125ml IV PRN (13:11)
--- NOTE | 2019-02-10 13:31 | CT Scan Report ---
Study: CT angiogram abdomen and pelvis HISTORY: Abdominal pain. Nausea. COMPARISON: Ultrasound duplex 02/09/2019 FINDINGS: The abdominal aorta as well as iliac vasculature shows no evidence for significant stenotic process. Renal artery show no significant stenosis. The celiac axis is unremarkable. The superior mesenteric artery demonstrates a 75% stenosis at its origin. All remaining arterial structures of the abdomen and pelvis are unremarkable. There is no evidence fo r aneurysm. Bowel pattern is considered nonobstructive. IMPRESSION: 1. 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 2. Mild scattered plaque formation throughout all remaining arterial structures of the abdomen and pe lvis. 3. No additional significant stenotic process. Electronically signed by: Domingo Garcia M.D. 02/10/2019 1:30 PM
--- NOTE | 2019-02-10 13:49 | Pharmacy Report ---
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 * Pt was on clears yesterday but NPO today. * Will continue reduced outpatient dosing for NPO and increase dosing as diet is advanced. * Pt received 28 units of insulin over the past 24hrs * 10 units basal * 18 units of prandial * BSGs 139-186 mg/dl since stopping insulin drip * AM fasting BSG is in goal range at 142 mg/dl --> Pt NPO, no change to basal insulin * No change to prandial insulin coverage (pt NPO) PLAN FOR INPATIENT GLYCEMIC CONTROL: * Basal insulin: continue reduced outpatient dosing * Lantus 10 units SQ Q24hrs given in AM * Will increase when diet is advanced * Bolus insulin: no change * NovoLog per scale ACHS or Q6hrs while NPO * Goal Range: Low 110 mg/dL - High 140 mg/dL * Correction Factor: 20 mg/dL/unit * Nutritional / Prandial insulin per carb ratio of 1 unit per 7 grams CHO consumed PLAN FOR DISCHARGE: * A1c is significantly elevated above goal at 11.7% * Current inpatient orders are c/w outpatient insulin dosing. * Suspect A1c is elevated secondary to non-adherence/compliance. Pt may benefit from DSME rather than dose increases. Recommend: * No changes to outpatient insulin regimen * Continue Lantus 18 units SQ AM * NovoLog 10 units SQ TIDM * Consider DMSE to improve adherence
[2019-02-11] MEDS ORDERED: INSULIN ASPART 100 UNITS/ML 3 ML PEN SC SCH (02:00)
[2019-02-11 06:42] LABS: Hematocrit (blood only) 29.2 % (42-52); Hemoglobin 9.8 g/dL (14.0-18.0); Mean Corpuscular Hemoglobin 30.2 pg (25-34); Mean Corpuscular Hgb Conc 33.6 g/dL (32-36); Mean Corpuscular Volume 90.1 fL (80-100); Mean Platelet Volume 9.6 fL (7.4-10.4); Platelet Count 185 K/uL (130-400); RDW Coefficient of Variation 12.8 % (11.5-14.5); RDW Standard Deviation 42.4 fL (36.4-46.3); Red Blood Count 3.24 M/uL (4.7-6.1); White Blood Count 7.18 K/uL (4.8-10.8)
[2019-02-11 07:10] LABS: BUN Creatinine Ratio 18.1 (10-20); Calcium 9.3 mg/dl (8.5-10.1); Creatinine Clr Calc Pharmacy 48.8 ml/min; Est GFR (African American) 65.2; Est GFR (Non-African American) 56.2; Potassium 3.9 mmol/L (3.5-5.1)
[2019-02-11] MEDS: INSULIN ASPART 100 UNITS/ML 3 ML PEN SC SCH ×3 (07:45→17:01)
[2019-02-11] MEDS: PANTOprazole 40 MG TAB PO SCH (07:45)
[2019-02-11] MEDS: ATORVASTATIN 40 MG TAB PO SCH (07:45)
[2019-02-11] MEDS: MULTIVITAMIN TAB PO SCH (07:45)
[2019-02-11] MEDS: INSULIN GLARGINE SOLOSTAR 100 UNITS/ML 3 ML PEN SC SCH (07:46)
[2019-02-11] MEDS ORDERED: INSULIN GLARGINE SOLOSTAR 100 UNITS/ML 3 ML PEN SC ONE (08:15)
--- NOTE | 2019-02-11 11:53 | Pharmacy Report ---
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 * Will just tighten CR slightly at this time. * Increase Lantus for advance in diet. 02/10/19 * 73-year-old male with a PMH of DM II, HTN and HLD, admitted with rectal bleeding * Pt initiated on IV insulin infusion on admission 02/08 and transitioned to SQ basal bolus on 02/09. * Pt was on clears yesterday but NPO today. * Will continue reduced outpatient dosing for NPO and increase dosing as diet is advanced. * Pt received 28 units of insulin over the past 24hrs * 10 units basal * 18 units of prandial * BSGs 139-186 mg/dl since stopping insulin drip * AM fasting BSG is in goal range at 142 mg/dl --> Pt NPO, no change to basal i nsulin * No change to prandial insulin coverage (pt NPO) PLAN FOR INPATIENT GLYCEMIC CONTROL: * Basal insulin: * INCREASE Lantus to 20 units SQ Q24hrs given in AM * Bolus insulin: * NovoLog per scale ACHS or Q6hrs while NPO * Goal Range: Low 110 mg/dL - High 140 mg/dL * Correction Factor: 20 mg/dL/unit * TIGHTEN: Nutritional / Prandial insulin per carb ratio of 1 unit per 6 grams CHO consumed PLAN FOR DISCHARGE: * A1c is significantly elevated above goal at 11.7% * Current inpatient orders are c/w outpatient insulin dosing. * Suspect A1c is elevated secondary to non-adherence/compliance. * Received DSME yesterday and will begin SMBG once daily. Recommend: * No changes to outpatient insulin regimen * Continue Lantus 18 units SQ AM * NovoLog 10 units SQ TIDM * Follow up with outpatient provider to evaluate SMBG readings.
[2019-02-11 12:37] LABS: Beta-Hydroxybutyrate 1.24 mg/dl (0.2-2.81)
--- NOTE | 2019-02-11 16:23 | Discharge Summary ---
Date of Service February 11, 2019 Admission HPI Per Admitting Provider This is a 73-year-old male with a PMH of DM II, HTN and HLD who presents with rectal bleed starting early this afternoon. Patient states he had some abdominal cramping prior to first episode of bright red blood per rectum mixed with loose stool. Had 4 subsequent episodes that were bright red but also with presence of blood clots and some dark red as well. [place] lightheaded and nauseous after viewing the toilet bowl and had a syncopal episode. Was brought into ED for further evaluation. Afebrile and hemodynamically stable with BP of 111/86. Patient became queasy again with the placement of peripheral IV and had hypotensive episode with syncope. Is receiving IV fluid bolus now with improvement of BP to 106/49. Heart rate of 73. Hemoglobin is stable at 12.9. No leukocytosis. Creatinine elevated at 1.51 (baseline ~1.1). Blood sugar elevated at 368. 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 Took 18 units of Lantus around 0100 last night. Denies any decreased appetite today. Currently, no lightheadedness, visual changes, chest pain, shortness of breath, nausea, vomiting, abdominal pain or dysuria. Denies history of GI bleeds. No history of hemorrhoids. Takes a baby aspirin daily but denies any ibuprofen use. Remote history of colonoscopy and does not remember results. Admission Exam Per Admitting Provider General Appearance: WD/WN, vitals as above, NAD, lying in bed, conversing easily, + pale Head: normocephalic, atraumatic Eyes: normal inspection, PERRL, conjunctivae normal, anicteric sclerae ENT: external ear and nose normal, oropharynx normal Neck: trachea midline, no thyromegaly normal visual inspection Respiratory: normal respiratory effort, lungs clear to auscultation, no wheeze, rales, rhonchi. Normal insp/exp effort, no accessory muscle use Cardiovascular: regular rate, rhythm, no murmur, normal peripheral pulses. Vessels: no JVD or carotid bruit Chest: normal inspection of chest Abdomen/GI: normal bowel sounds, soft, nontender, no hepatosplenomegaly Extremities/Musculoskelatal: no cyanosis or clubbing, extremities motor strengt h 5/5 Neurologic: PERRL, EOMI, accommodation nl, no face palsy, no dysarthria CN's II-XI intact bilaterally and moves all extremities Psychiatric: A+Ox3, euthymic affect Skin: no rashes, pale, warm/dry Principal Diagnosis Lower GI bleed, most likely diverticular bleed, Diabetes mellitus type 2 (uncontrolled), ASHLEE Discharge Exam General Appearance: Elderly male sitting up in bed, in NAD, conversing easily, + pale Head: normocephalic, atraumatic Eyes: normal inspection, PERRL, EOMI, conjunctivae normal, anicteric sclerae ENT: external ear and nose normal, oropharynx normal Neck: trachea midline, no thyromegaly normal visual inspection Respiratory: normal respiratory effort, lungs clear to auscultation, no wheeze, rales, rhonchi Cardiovascular: RRR no murmur, normal peripheral pulses. Vessels: no JVD or carotid bruit Chest: normal inspection of chest Abdomen/GI: normal bowel sounds, soft, nontender, nondistended, no guarding Extremities/MSK: no cyanosis or clubbing, extremities motor strength 5/5 Neurologic: PERRL, EOMI, accommodation nl, no face palsy, no dysarthria CN's II-XI intact bilaterally and moves all extremities Psychiatric: A+Ox3, euthymic affect Skin: no rashes, pale, warm/dry Discharge Data Allergies Allergy/AdvReac Type Severity Reaction Status Date / Time No Known Allergies Allergy Unverified 02/16/19 19:59 Consultations 02/08/19 17:17 ED Decision to Admit Stat 02/09/19 08:00 Consult Gastroenterology Routine 02/10/19 09:00 Consult Vascular Surgery Routine Ordered Studies 02/09/19 11:39 US duplex mesenteric Routine IMPRESSION: Elevated peak systolic velocities within the proximal superior mesenteric artery and proximal to mid celiac artery consistent with areas of hemodynamically significant stenosis. 02/10/19 11:54 CT angio abdomen pelvis w con Routine IMPRESSION: 1. 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 2. Mild scattered plaque formation throughout all remaining arterial structures of the abdomen and pelvis. 3. No additional significant stenotic process. Hospital Course (1) Rectal bleed: This is a 73-year-old male with a PMH of DM II, HTN and HLD who presents with rectal bleed -Endorsed 5 episodes of bright red blood with presence of clots and some dark blood prior to admission -No prior history of GI bleeds. Daily baby aspirin use -Has been intermittently hypotensive during vasovagal episodes but improved -Hgb stable at 12.9 on admission. Type & crossed and consented with 2u PRBCs held - Now Hgb trending down, likely partially secondary to dilution from IVF, and acute blood loss -Considered abdominal imaging on admission but did not want to give IV contrast in setting of ASHLEE -Afebrile, no leukocyosis so no abx given for now -Clear liquids diet, IVF -GI consulted -believe diverticular bleed versus ischemic colitis, stool culture and C. difficile, change PPI related to Protonix 40 mg p.o. twice daily recommend colonoscopy in 4 to 6 weeks time -Ordered mesenteric Doppler to rule out ischemia, given possible stenosis Vascular surgery was consulted (for poss. ischemic colitis) - per Vascular, CTA abdomen/pelvis ordered, shows 75%stenosis at origin of SMA, discussed w/ vascular surgeon, Dr. Sharma, does not believe pt's symptoms secondary to isch. colitis, pt may have vasc. dis. due to uncontrolled diabetes, but no vasc. intervention warranted at this time - no more BMs or abd. pain, pt clinically much improved, plan to d/c w/ close PCP follow up and outpt. colonoscopy (2) Vasovagal syncope: Has had 2 episodes in reaction to sight of blood (on admission) -No reflexive tachycardia- HR has remained in normal range -received IV fluids, monitor on telemetry (3) Acute kidney injury: - now resolved Cr elevated on admission, at 1.51 (baseline Cr ~1.1). BUN/Cr ratio of 21 in setting of GI bleed -Received IV fluids -Hold lisinopril, resume on discharge (4) Diabetes mellitus type II, uncontrolled: Hgb a1c of 11.9% in Nov 2017. Hgb A1c 11.7% (02/09/2019) -Takes insulin around 6710-8100 after returning from work -BSG of 368 initially -Glycemic consult placed for further management, diabetic education - per visual educator pt does not check his BSG level at home, could use different supplies so he would be more compliant - provided script for diabetic supplies on discharge (5) HTN (hypertension): Intermittently hypotensive -Holding lisinopril in setting of ASHLEE (6) BPH (benign prostatic hypertrophy) with urinary retention: History of urinary retention -Bladder scan qshift PRN (7) HLD (hyperlipidemia): Continue statin PCP: Robin Total Time Total Time Spent Total Time Spent (In Minutes): 45 Total Time Includes: Examination of the Patient, Discharge Planning, Medication Reconciliation and Communication With Other Providers Discharge Plan Discharge Items Patient Disposition: Home - Self-Care Reason For Visit: RECTAL BLEED,ASHLEE Discharge Diagnosis: Lower GI bleed, most likely diverticular bleed, Diabetes mellitus type 2 (uncontrolled) Activity: Resume your previous activity Activity Comment: As tolerated, pace yourself,ask for help as needed Non-emergency contact: Primary Care Provider and Uniform Cap Operator Call non-emergency contact if: you have any medication questions and your symptoms worsen Follow-up/Referrals: Moo Kelly MD [Primary Care Provider] - Diet: Carb Consistent or DM2 Diet Comment: Low residue diet (low fiber) for next couple of weeks, then high- fiber diet Addtl Attending Provider Instructions: You need to follow-up with your primary care provider within 1 week of discharge. You will also have follow-up with GI, for colonoscopy in about 4 weeks. Take Protonix (pantoprazole ) 40 mg twice a day. Avoid NSAIDs such as Aleve, ibuprofen, Motrin. You can take Tylenol for pain as needed. Make sure to measure your blood sugar level, and keep a log of these numbers. This is going to be important for your primary care doctor, to adjust your insulin. Prescription for diabetic supplies was provided for you. Also make sure to stick to a diabetic diet. For next couple of weeks also make sure your diet is low residual/low fiber. Then (after several weeks) it should be high in fiber content. Make sure to avoid constipation, use a stool softener as needed, to have daily soft stools. Pending Studies at Discharge: No Stand-Alone Forms: [employer], Work/School Release (Inpt), Smoking Cessation Medications and DC Order Prescriptions: New pantoprazole 40 mg Tablet,Delayed Release (Dr/Ec) 40 mg PO QAM 30 Days Qty: 30 RF: 0 Continued multivitamin Tablet 1 tab PO DAILY RF: 0 atorvastatin [Lipitor] 40 mg tablet 40 mg PO DAILY RF: 0 aspirin [Aspir-81] 81 mg Tablet,Delayed Release (Dr/Ec) 81 mg PO DAILY RF: 0 docusate sodium 100 mg Capsule 100 mg PO DAILY RF: 0 Novolog Flexpen U-100 Insulin 100 unit/mL (3 mL) insulin pen 10 unit SUBCUT BID RF: 0 Lantus Solostar U-100 Insulin 100 unit/mL (3 mL) insulin pen 20 unit SUBCUT QAM RF: 0 lisinopril 20 mg Tablet 20 mg PO DAILY RF: 0 No Action acetaminophen [Tylenol Extra Strength] 500 mg Tablet 500 mg PO Q6H PRN (Reason: Pain) RF: 0 Discharge Orders: Discharge Order (Routine); Ordered 02/11/19 Ordered By: Jacek Spence/Other Patient Handouts: Diabetes Intermediate Complications, Diabetes Resources, Diabetes Type 2 Coping, Diabetes Healthy Meals, Diabetes Carbs, Diabetes Exercise Benefits, Diabetes Activity Tips, Diabetes Living Life, Diabetes Manage A1C Test Admission Data Admit Date/Time: 02/08/19 18:03 Attending Provider: Jacek Collado Admit Provider: Alicia Alcaraz Primary Care Provider: Moo Kelly Other Providers: Alicia Alcaraz ; Evangelina Mendez ; Naveed Sharma Other Interventions: Discharge Summary Assessment (RN) Last Done: 02/11/19 16:38 DC Date/Time DO NOT enter until pt leaves facility: 02/11/19 17:53
[2019-02-12] MEDS ORDERED: INSULIN GLARGINE SOLOSTAR 100 UNITS/ML 3 ML PEN SC SCH (09:00)
== END 2019-02-11 17:53 | disposition home or self-care (01) | DRG 378 ==
LOC: ED 15:31 → 2S 18:03 → SUATTDRO 18:03 → 2S 18:36

== ENCOUNTER 2019-02-16 17:29 | Inpatient (IN) ==
--- NOTE | 2019-02-16 18:09 | Emergency Department Note ---
Entered by Orly Lopez acting as a scribe for Lawrence Parker DO History of Present Illness General Chief complaint: Syncope Stated complaint: PASSING OUT, BLEEDING Time Seen by Provider: 02/16/19 17:49 Source: patient and family History of Present Illness Onset (ago): minute(s) (40) Location: head (general) Pain Consistency: + intermittent Quality: + other (dizziness) Associated symptoms: + weakness and + other (fall, blood in stool, diarrhea, decreased sleep) The patient is a 73 year old male who presents to the Emergency Room with compla ints of intermittent dizziness beginning 40 minutes ago. The patient states he was trying to clock in at work, when he became dizzy and fell hitting his left side on a chair. He denies passing out. He states he was able to get up and go to the bathroom. He states upon sitting down he started to feel better but was still very weak. The patient's family states the patient was in the hospital last week for a diverticulitis bleed. They note the patient was not doing well with his diabetes prior to the admission. They state the patient's diet has been changed and his PCP increased his insulin since being discharged. The patient reports intermittent blood in his stool today. He reports diarrhea. He states he has not been getting very much sleep. The patient states he has a colonoscopy scheduled for 9 days from now. Home Medications Home Medications Medication Instructions Recorded Confirmed Type Lantus Solostar U-100 Insulin 20 unit SUBCUT QAM 02/08/19 02/16/19 History Novolog Flexpen U-100 Insulin 10 unit SUBCUT BID 02/08/19 02/16/19 History aspirin [Aspir-81] 81 mg PO DAILY 02/08/19 02/16/19 History atorvastatin [Lipitor] 40 mg PO DAILY 02/08/19 02/16/19 History docusate sodium 100 mg PO DAILY 02/08/19 02/16/19 History lisinopril 20 mg PO DAILY 02/08/19 02/16/19 History multivitamin 1 tab PO DAILY 02/08/19 02/16/19 History pantoprazole 40 mg PO QAM 30 Days #30 tab 02/11/19 02/16/19 Rx acetaminophen [Tylenol Extra 500 mg PO Q6H PRN 02/16/19 02/16/19 History Strength] Allergies Allergy/AdvReac Type Severity Reaction Status Date / Time No Known Allergies Allergy Unverified 02/16/19 19:59 Past Med/Surg History Medical History Acute kidney injury (Inactive 12/01/13) BPH (benign prostatic hypertrophy) with urinary retention (Chronic) "Present occultly for a while" Diabetes mellitus type II, uncontrolled (Chronic) Hernia HLD (hyperlipidemia) (Chronic) HTN (hypertension) (Chronic) Surgical History History of ankle surgery Family History Other Diabetes Social History Preferred Language: Nepalese Communication Ability: Effective Beliefs That Will Affect Care: None Current Living Situation: Spouse current occupational status: employed 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 and A total of 10 systems reviewed and were otherwise negative Physical Exam Vital Signs Vital Signs - 24 hr 02/16/19 17:44 02/16/19 18:16 02/16/19 18:24 Temperature 36.8 C Temperature Source Oral Pulse Rate 88 80 86 Pulse Rate [Apical] Pulse Rate from SpO2 Sensor 81 Pulse Rhythm Pulse Rhythm [Apical] Pulse Strength [Apical] Respiratory Rate 18 29 H 20 Respiratory Effort / Characteristics Respiratory Depth Respiratory Pattern Blood Pressure 95/55 L 118/62 Blood Pressure [Right Arm] Blood Pressure Mean 68 92 Blood Pressure Mean [Right Arm] Blood Pressure Position Sitting Blood Pressure Position [Right Arm] Pulse Oximetry 100 98 97 Oxygen Delivery Method Room Air Sepsis Recent Fever Within 48 Hours No Sepsis New/Unexplained Change in Mental Status No Sepsis Action Taken by Nursing No Action Required 02/16/19 18:25 02/16/19 18:28 02/16/19 18:30 Temperature Temperature Source Pulse Rate 82 81 Pulse Rate [Apical] 89 Pulse Rate from SpO2 Sensor 81 81 Pulse Rhythm Regular Pulse Rhythm [Apical] Regular Pulse Strength [Apical] Normal Respiratory Rate 24 24 Respiratory Effort / Characteristics Non-Labored Spontaneous Respiratory Depth Normal Respiratory Pattern Regular Blood Pressure 120/57 L Blood Pressure [Right Arm] 118/62 Blood Pressure Mean 65 Blood Pressure Mean [Right Arm] 80 Blood Pressure Position Blood Pressure Position [Right Arm] Sitting Pulse Oximetry 99 100 100 Oxygen Delivery Method Room Air Room Air Sepsis Recent Fever Within 48 Hours Sepsis New/Unexplained Change in Mental Status Sepsis Action Taken by Nursing 02/16/19 18:31 02/16/19 19:00 02/16/19 19:31 Temperature Temperature Source Pulse Rate 80 76 82 Pulse Rate [Apical] Pulse Rate from SpO2 Sensor 79 81 81 Pulse Rhythm Pulse Rhythm [Apical] Pulse Strength [Apical] Respiratory Rate 21 15 30 H Respiratory Effort / Characteristics Respiratory Depth Respiratory Pattern Blood Pressure 115/42 L 104/82 Blood Pressure [Right Arm] Blood Pressure Mean 58 92 Blood Pressure Mean [Right Arm] Blood Pressure Position Blood Pressure Position [Right Arm] Pulse Oximetry 100 96 99 Oxygen Delivery Method Sepsis Recent Fever Within 48 Hours Sepsis New/Unexplained Change in Mental Status Sepsis Action Taken by Nursing 02/16/19 20:01 02/16/19 20:15 Temperature 36.4 C L 36.5 C Temperature Source Oral Oral Pulse Rate 78 85 Pulse Rate [Apical] Pulse Rate from SpO2 Sensor Pulse Rhythm Regular Pulse Rhythm [Apical] Pulse Strength [Apical] Respiratory Rate 23 20 Respiratory Effort / Characteristics Respiratory Depth Respiratory Pattern Blood Pressure 114/71 115/65 Blood Pressure [Right Arm] Blood Pressure Mean 85 81 Blood Pressure Mean [Right Arm] Blood Pressure Position Lying Sitting Blood Pressure Position [Right Arm] Pulse Oximetry 97 100 Oxygen Delivery Method Sepsis Recent Fever Within 48 Hours Sepsis New/Unexplained Change in Mental Status Sepsis Action Taken by Nursing CONSTITUTIONAL/VITAL SIGNS: Reviewed / noted above. GENERAL: Non-toxic in appearance. Pale in appearance. Capillary refill is slightly delayed. INTEGUMENTARY: Warm, dry, and [place]. HEAD: Normocephalic. EYES: without scleral icterus or trauma. ENT/OROPHARYNX: clear and moist. LYMPHADENOPATHY/NECK: Is supple without lymphadenopathy or meningismus. RESPIRATORY: Lungs clear and equal. CARDIOVASCULAR: Regular rate and rhythm. GI/ABDOMEN: Soft and nontender. No organomegaly or pulsatile mass. No rebound or guarding. Normal bowel sounds. EXTREMITIES: Warm and well perfused. BACK: No CVA tenderness. NEUROLOGICAL: Intact without focal deficits. PSYCHIATRIC: normal affect. MUSCULOSKELETAL: Normally developed with good muscle tone. Course Course 1750: Past medical records reviewed. The patient was evaluated in room B02. A complete history and physical exam was performed. 1940: Upon reevaluation, I discussed findings and results with the patient and his family. They verbalized agreement of the treatment plan. I spoke with Dr. Cleary of the [facility] Hospitalist Service. The patient will be evaluated for further management and care. Administered Medications Sodium Chloride (Nss 1000ml) 1,000 mls @ 100 mls/hr IV .Q10H BETO Stop: 02/17/19 04:14 Last Infusion: 02/16/19 19:31 Dose: 0 mls/hr Documented by: [id number] Admin: 02/16/19 18:16 Dose: 100 mls/hr Documented by: [id number] Critical Care Time Critical Care Time: Yes Total Critical Care Time: 40 I have personally spent 40 minutes of critical care time in the direct management of this patient. This includes bedside care, interpretation of diagnostic studies, and testing, discussion with consultants, patient, and family members, and other required patient management activities. This 40 minutes is in excess of all separately billable procedures. Medical Decision Making Differential Diagnosis Differential diagnosis includes etiologies such as diverticulosis, AVM, coagulopathy, colitis, inflammatory bowel disease, malignancy, Madyson-Garcia tear, esophagitis, peptic ulcer disease, variceal bleed, gastritis, epistaxis, fissure, hemorrhoids, as well as others were entertained. Medical Records Attestation: I reviewed the patient's medical records. Home Medications Current Medication List: was personally reviewed by me Laboratory Data Attestation: I reviewed the patient's lab results. Result diagrams: 02/16/19 18:16 02/16/19 18:16 Lab Results 02/16/19 02/16/19 02/16/19 Range/Units 18:16 18:16 18:16 WBC 5.42 (4.8-10.8) K/uL RBC 2.32 L (4.7-6.1) M/uL Hgb 7.2 L (14.0-18.0) g/dL Hct 21.2 L (42-52) % MCV 91.4 (80-100) fL MCH 31.0 (25-34) pg MCHC 34.0 (32-36) g/dL RDW Std Deviation 45.2 (36.4-46.3) fL RDW Coeff of Radha 13.6 (11.5-14.5) % Plt Count 282 (130-400) K/uL MPV 8.7 (7.4-10.4) fL Immature Gran % (Auto) 0.2 % Neut % (Auto) 68.1 % Lymph % (Auto) 21.6 % [place] % (Auto) 7.7 % Eos % (Auto) 2.0 % Baso % (Auto) 0.4 % Immature Gran # (Auto) 0.01 (0.00-0.02) K/uL Neut # (Auto) 3.69 (1.4-6.5) K/uL Lymph # (Auto) 1.17 L (1.2-3.4) K/uL [place] # (Auto) 0.42 (0.11-0.59) K/uL Eos # (Auto) 0.11 (0-0.5) K/uL Baso # (Auto) 0.02 (0-0.2) K/uL RBC Morphology Unremarkable PT 11.0 (9.0-12.0) Seconds INR 1.1 (0.9-1.1) APTT 23.7 (21.0-31.0) Seconds PTT Ratio 0.9 Sodium 141 (136-145) mmol/L Potassium 4.1 (3.5-5.1) mmol/L Chloride 113 H (98-107) mmol/L Carbon Dioxide 23 (21-32) mmol/L Anion Gap 5.0 (3-11) BUN 32 H (7-18) mg/dl Creatinine 1.14 (0.6-1.4) mg/dl Est Cr Clr Drug Dosing Not Reportable Est GFR ( Amer) 73.5 Est GFR (Non-Af Amer) 63.4 BUN/Creatinine Ratio 27.8 H (10-20) Glucose 132 H (70-99) mg/dl Calcium 8.1 L (8.5-10.1) mg/dl Total Bilirubin 0.2 (0.2-1) mg/dl AST 18 (15-37) U/L ALT 25 (12-78) U/L Alkaline Phosphatase 72 (45-117) U/L Total Protein 5.3 L (6.4-8.2) gm/dl Albumin 2.7 L (3.4-5.0) gm/dl Globulin 2.6 (2.5-4.0) gm/dl Albumin/Globulin Ratio 1.0 (0.9-2) Blood Type Antibody Screen Crossmatch 02/16/19 Range/Units 18:24 WBC (4.8-10.8) K/uL RBC (4.7-6.1) M/uL Hgb (14.0-18.0) g/dL Hct (42-52) % MCV (80-100) fL MCH (25-34) pg MCHC (32-36) g/dL RDW Std Deviation (36.4-46.3) fL RDW Coeff of Radha (11.5-14.5) % Plt Count (130-400) K/uL MPV (7.4-10.4) fL Immature Gran % (Auto) % Neut % (Auto) % Lymph % (Auto) % [place] % (Auto) % Eos % (Auto) % Baso % (Auto) % Immature Gran # (Auto) (0.00-0.02) K/uL Neut # (Auto) (1.4-6.5) K/uL Lymph # (Auto) (1.2-3.4) K/uL [place] # (Auto) (0.11-0.59) K/uL Eos # (Auto) (0-0.5) K/uL Baso # (Auto) (0-0.2) K/uL RBC Morphology PT (9.0-12.0) Seconds INR (0.9-1.1) APTT (21.0-31.0) Seconds PTT Ratio Sodium (136-145) mmol/L Potassium (3.5-5.1) mmol/L Chloride (98-107) mmol/L Carbon Dioxide (21-32) mmol/L Anion Gap (3-11) BUN (7-18) mg/dl Creatinine (0.6-1.4) mg/dl Est Cr Clr Drug Dosing Est GFR ( Amer) Est GFR (Non-Af Amer) BUN/Creatinine Ratio (10-20) Glucose (70-99) mg/dl Calcium (8.5-10.1) mg/dl Total Bilirubin (0.2-1) mg/dl AST (15-37) U/L ALT (12-78) U/L Alkaline Phosphatase (45-117) U/L Total Protein (6.4-8.2) gm/dl Albumin (3.4-5.0) gm/dl Globulin (2.5-4.0) gm/dl Albumin/Globulin Ratio (0.9-2) Blood Type O Positive Antibody Screen NEGATIVE Crossmatch See Detail Imaging Data Radiologist's Impression: Radiology results as stated below per my review and the radiologist's interpretation: XR chest 1V portable CLINICAL HISTORY: gi bleed COMPARISON STUDY: Chest radiograph November 09, 2018. FINDINGS: Lung volumes are diminished. Bibasilar opacities are noted. Mild cardiomegaly is noted without evidence for pulmonary edema. There is no pneumothorax or pleural effusion. IMPRESSION: Low lung volumes with bibasilar opacities suggestive of atelectasis. Electronically signed by: Owen Hussein M.D. 02/16/2019 7:07 PM ECG Data Attestation: I personally reviewed and interpreted this ECG as follows: Indication: + syncope Rate (beats per minute): 91 Rhythm: + normal sinus ECG ST segments: no ST elevation ECG Findings: no PACs and no PVCs Comparison ECG Date: from (02/08/2019) Change: no significant change Blood Pressure Blood Pressure Findings: Low blood pressure Blood Pressure Disposition: further management by hospitalist ILYA Hernández This is a 73-year-old male who presents to the ED with a chief complaint of GI bleed. The patient states that around 5:30 PM he became lightheaded while he was at work. He states that he started to fall and went backwards striking his left side on a chair. He denies syncope but was near syncope. The patient states that he had a recent bout of GI bleeding for which he was in the hospital until Wednesday. He was discharged and has follow-up with GI on for colono scopy. The patient states that he had no bloody bowel movements yesterday but did have 3 bloody bowel movements today. They report he was diagnosed with a diverticular bleed when he was here recently. The patient's vital signs are stable. Orthostatic vital signs are positive with a drop in his blood pressure from 113/68-92/55 standing. Heart rate increased from 86-96 standing. The patient's exam reveals that he is pale. His capillary refill seems a little diminished. He is otherwise in no distress. The patient's hemoglobin today is 7.2. BUN is 32. EKG shows a normal sinus rhythm. Chest x-ray was negative for acute disease. The patient was given 500 cc normal saline IV bolus as well as 1 unit of packed RBCs. He will be seen by the hospitalist for further evaluation and care for his GI bleeding. Impression & Plan GI bleed, Anemia, Hypovolemia, Orthostatic hypotension Discharge Plan Visit Data Chief Complaint: Syncope Stated Complaint: PASSING OUT, BLEEDING ED Provider: Lawrence Parker Discharge Problem: GI bleed, Anemia, Hypovolemia, Orthostatic hypotension Patient Disposition: Being Evaluated by Hospitalist Forms Stand Alone Forms: My [facility] Prescriptions Prescriptions: No Action multivitamin Tablet 1 tab PO DAILY RF: 0 atorvastatin [Lipitor] 40 mg tablet 40 mg PO DAILY RF: 0 aspirin [Aspir-81] 81 mg Tablet,Delayed Release (Dr/Ec) 81 mg PO DAILY RF: 0 docusate sodium 100 mg Capsule 100 mg PO DAILY RF: 0 Novolog Flexpen U-100 Insulin 100 unit/mL (3 mL) insulin pen 10 unit SUBCUT BID RF: 0 Lantus Solostar U-100 Insulin 100 unit/mL (3 mL) insulin pen 20 unit SUBCUT QAM RF: 0 lisinopril 20 mg Tablet 20 mg PO DAILY RF: 0 pantoprazole 40 mg Tablet,Delayed Release (Dr/Ec) 40 mg PO QAM 30 Days Qty: 30 RF: 0 acetaminophen [Tylenol Extra Strength] 500 mg Tablet 500 mg PO Q6H PRN (Reason: Pain) RF: 0 Referrals Referrals: Moo Kelly MD [Primary Care Provider] - Discharge Problem: GI bleed Qualifiers: GI bleed type/associated pathology: unspecified gastrointestinal hemorrhage type Qualified Code(s): K92.2 - Gastrointestinal hemorrhage, unspecified Anemia Qualifiers: Anemia type: unspecified type Qualified Code(s): D64.9 - Anemia, unspecified The scribe's documentation has been prepared under my direction and personally reviewed by me in its entirety. I confirm that the note above accurately reflects all work, treatment, procedures, and medical decision making performed by me.
[2019-02-16] MEDS ORDERED: SODIUM CHLORIDE 0.9% 1000ML 1,000 ML IV SCH (18:15)
[2019-02-16 18:31] LABS: Basophils # (auto) 0.02 K/uL (0-0.2); Basophils % (auto) 0.4 %; Eosinophils # (auto) 0.11 K/uL (0-0.5); Hematocrit (blood only) 21.2 % (42-52); Hemoglobin 7.2 g/dL (14.0-18.0); Immature Granulocytes # (auto) 0.01 K/uL (0.00-0.02); Immature Granulocytes % (auto) 0.2 %; Lymphocytes # (auto) 1.17 K/uL (1.2-3.4); Lymphocytes % (auto) 21.6 %; Mean Corpuscular Volume 91.4 fL (80-100); Mean Platelet Volume 8.7 fL (7.4-10.4); Monocytes # (auto) 0.42 K/uL (0.11-0.59); Monocytes % (auto) 7.7 %; Neutrophils # (auto) 3.69 K/uL (1.4-6.5); Neutrophils % (auto) 68.1 %; Platelet Count 282 K/uL (130-400); RDW Coefficient of Variation 13.6 % (11.5-14.5); RDW Standard Deviation 45.2 fL (36.4-46.3); Red Blood Count 2.32 M/uL (4.7-6.1); White Blood Count 5.42 K/uL (4.8-10.8)
[2019-02-16 18:45] LABS: INR 1.1 (0.9-1.1); Partial Thromboplastin Ratio 0.9; Partial Thromboplastin Time 23.7 Seconds (21.0-31.0)
[2019-02-16 18:53] LABS: RBC Morphology Unremarkable
[2019-02-16 18:57] LABS: Alanine Aminotransferase 25 U/L (12-78); Albumin Level 2.7 gm/dl (3.4-5.0); Aspartate Aminotransferase 18 U/L (15-37); BUN Creatinine Ratio 27.8 (10-20); Blood Urea Nitrogen 32 mg/dl (7-18); Calcium 8.1 mg/dl (8.5-10.1); Carbon Dioxide 23 mmol/L (21-32); Chloride 113 mmol/L (98-107); Est GFR (African American) 73.5; Est GFR (Non-African American) 63.4; Glucose 132 mg/dl (70-99); Potassium 4.1 mmol/L (3.5-5.1); Sodium 141 mmol/L (136-145)
[2019-02-16 18:59] LABS: Alkaline Phosphatase 72 U/L (45-117); Bilirubin,Total 0.2 mg/dl (0.2-1); Globulin 2.6 gm/dl (2.5-4.0); Total Protein 5.3 gm/dl (6.4-8.2)
--- NOTE | 2019-02-16 19:08 | XRay Report ---
XR chest 1V portable CLINICAL HISTORY: gi bleed COMPARISON STUDY: Chest radiograph November 09, 2018. FINDINGS: Lung volumes are diminished. Bibasilar opacities are noted. Mild cardiomegaly is noted with out evidence for pulmonary edema. There is no pneumothorax or pleural effusion. IMPRESSION: Low lung volumes with bibasilar opacities suggestive of atelectasis. Electronically signed by: Owen Hussein M.D. 02/16/2019 7:07 PM
[2019-02-16] MEDS ORDERED: SODIUM CHLORIDE 0.9% 250 ML IV PRN ×2 (19:24→22:38)
[2019-02-16] MEDS ORDERED: PANTOprazole 80 MG in DEXTROSE 5% 100 ML IV STA (20:13)
[2019-02-16] MEDS ORDERED: ENALAPRILAT 1.25 MG in DEXTROSE 5% 25 ML IV PRN (22:38)
[2019-02-16] MEDS ORDERED: FUROSEMIDE 40 MG/4 ML VIAL IV ONE (22:38)
[2019-02-16] MEDS ORDERED: ONDANSETRON INJ 2 MG/ML 2 ML VIAL IV PRN (22:38)
[2019-02-16] MEDS ORDERED: ACETAMINOPHEN 325 MG TAB PO PRN (22:38)
[2019-02-16] MEDS ORDERED: NITROGLYCERIN SL 0.4 MG/TAB TAB SL PRN (22:38)
[2019-02-16] MEDS ORDERED: ACETAMINOPHEN 325 MG TAB PO STA (22:38)
[2019-02-16] MEDS ORDERED: FUROSEMIDE 20 MG in SYRINGE 0 ML IV ONE (23:00)
--- NOTE | 2019-02-16 23:14 | History and Physical Report ---
DATE OF ADMISSION: 02/16/2019 CHIEF COMPLAINT: Syncope and GI bleed. HISTORY OF PRESENT ILLNESS: This is a 73-year-old male with past medical history significant for type 2 diabetes, hypertension, hyperlipidemia, history of BPH, who was recently in the hospital, admitted on February 08 with a GI bleed and syncope. The GI bleed thought to be from diverticular bleed or ischemic colitis, was evaluated by Vascular. Vascular thought it is mostly nonischemic and recommended to do CTA of abdomen and pelvis for completion when the patient is able to tolerate and he supposed to get colonoscopy in 4-6 weeks and was discharged on Protonix. The patient states after going home, he was doing okay, then he got constipated and took stool softener, which helped move his bowels. Yesterday, bowel movements were normal, but today he had 3 bloody bowel movements. He was at work and he was suddenly felt like urge to go to bathroom and then he suddenly passed out and fell down on the left side for a few seconds and came back to consciousness, no biting of tongue, no incontinence during the episode, no shaking of the body. He has some discomfort on the left side of the chest from the fall after that, he had another bloody bowel movement and then he decided to come to the ER. Here, his hemoglobin is 7.2. On discharge, his hemoglobin was 9.8 on February 11. His hemodynamics are stable. Denies any abdominal pain. He says after his bloody bowel movement, actually he felt better. Denies any nausea, vomiting. No chest pain, no shortness of breath, occasional cough, no fever, no chills. He has some cold kind of symptoms, but denies any blurred visions, earache, sore throat, no difficulty swallowing. Appetite is okay, sleeping okay. No recent weight gain, weight loss. No night sweats. Ambulates okay. No hematuria or burning micturition, no swelling in the legs, no rash anywhere. At work, he has exposure to some chemicals and he sometimes gets itchiness. ALLERGIES: No known drug allergies. PAST MEDICAL HISTORY: As mentioned above. PAST SURGICAL HISTORY: Cystoscopy, injection of eye drug, dental surgery, laparoscopic hernia repair, prostatectomy, right inguinal hernia repair. MEDICATIONS: The patient is on Tylenol 500 mg p.o. q. 6 hours p.r.n., aspirin 81 mg p.o. daily, atorvastatin 40 mg p.o. daily, Colace 100 mg p.o. daily, Lantus 20 units q.a.m., lisinopril 20 mg p.o. daily, multivitamin 1 tablet daily, NovoLog FlexPen 10 units subcutaneous b.i.d., Protonix 40 mg p.o. daily. FAMILY HISTORY: Significant for: Father of cancer. Father had lung disorder. Mother had stroke, diabetes and heart disorder. Brother had thyroid disorder. SOCIAL HISTORY: and lives with his . No smoking; alcohol rarely. No drug use. REVIEW OF SYMPTOMS: As per HPI. Rest of review of systems negative. PHYSICAL EXAMINATION: GENERAL: The patient is of moderate built, not in acute distress. VITAL SIGNS: Temperature 36.5, pulse 85, respiratory rate 20, blood pressure 115/65, oxygen 98% on room air. HEENT: No pallor, no icterus. Pupils equal, round, reactive to light. Extraocular muscles intact. NECK: No JVD, no neck masses, no carotid bruits. CARDIOVASCULAR: S1, S2 heard, regular rate and rhythm, no murmur, no gallop. RESPIRATORY SYSTEM: Normal AP diameter. No accessory muscle use. No wheezing, no crackles. ABDOMEN: Soft, bowel sounds present, nontender. No distention. CENTRAL NERVOUS SYSTEM: Cranial nerves II-XII grossly intact. Nonfocal. EXTREMITIES: No edema, no erythema. LABORATORY DATA: WBC 5.4, hemoglobin 7.2, hematocrit 21.2, platelets 282. PT 11, INR 1.1, APTT 23.7. Sodium 141, potassium 4.1, chloride 113, bicarbonate 23, BUN 32, creatinine 1.14, glucose 132, calcium 8.1, total bilirubin 0.2, AST 18, ALT 25, alkaline phosphatase 72. Chest x-ray, low lung volumes with bibasilar opacity suggestive of atelectasis. EKG: Normal sinus rhythm with rate of 91, no significant change from previous EKG. ASSESSMENT AND PLAN: This is a 73-year-old male who presents with gastrointestinal bleed and syncope. 1. Gastrointestinal bleed, recently in the hospital for gastrointestinal bleed, thought to be possibly from diverticular bleed versus ischemic colitis, was seen by vascular surgery, thought unlikely to be symptoms from ischemia. Comes back again with the blood per rectum. 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 We will hold his aspirin. We will place on Protonix drip. We will transfuse 2 units of PRBCs and H and H q. 6 hours. Keep him n.p.o. and GI consult in a.m. for possible colonoscopy and or EGD. Monitor the hemodynamics in the tele floor. IV normal saline 100 mL per hour for now. 2. Syncope, mostly likely from above. We will monitor in tele floor. Monitor his hemodynamics. 3. History of diabetes. We will reduce his Lantus to 9 units in a.m. as the patient is currently n.p.o. and insulin sliding scale. Follow HbA1c levels. Follow his blood sugars. 4. History of hypertension. We will hold his lisinopril and place him on IV Vasotec p.r.n. Monitor his blood pressure. Restart lisinopril when blood pressure rises. 5. Hyperlipidemia. Hold statin for now. 6. Benign prostatic hypertrophy, status post TURP. 6. Deep venous thrombosis prophylaxis, sequential compression devices. DISPOSITION: Admit to tele floor. Expect discharge home and follow with family doctor. Level 1 full code. MTDD
[2019-02-16] MEDS: PANTOprazole 40 MG in DEXTROSE 5% 100 ML IV SCH (23:59)
[2019-02-17] MEDS: INSULIN ASPART 100 UNITS/ML 3 ML PEN SC SCH ×5 (00:43→21:12)
[2019-02-17] MEDS: SODIUM CHLORIDE 0.9% 1000ML 1,000 ML IV SCH ×3 (03:10→22:34)
[2019-02-17 04:25] LABS: Hematocrit (blood only) 23.9 % (42-52); Hemoglobin 8.4 g/dL (14.0-18.0)
[2019-02-17 04:26] LABS: Basophils # (auto) 0.01 K/uL (0-0.2); Basophils % (auto) 0.2 %; Eosinophils % (auto) 1.6 %; Hematocrit (blood only) 23.9 % (42-52); Hemoglobin 8.4 g/dL (14.0-18.0); Immature Granulocytes # (auto) 0.02 K/uL (0.00-0.02); Immature Granulocytes % (auto) 0.3 %; Lymphocytes # (auto) 1.36 K/uL (1.2-3.4); Lymphocytes % (auto) 21.9 %; Mean Corpuscular Hemoglobin 31.2 pg (25-34); Mean Corpuscular Hgb Conc 35.1 g/dL (32-36); Mean Corpuscular Volume 88.8 fL (80-100); Monocytes # (auto) 0.45 K/uL (0.11-0.59); Monocytes % (auto) 7.2 %; Neutrophils # (auto) 4.28 K/uL (1.4-6.5); Neutrophils % (auto) 68.8 %; Platelet Count 204 K/uL (130-400); RDW Coefficient of Variation 13.4 % (11.5-14.5); RDW Standard Deviation 43.3 fL (36.4-46.3); Red Blood Count 2.69 M/uL (4.7-6.1); White Blood Count 6.22 K/uL (4.8-10.8)
[2019-02-17 04:45] LABS: BUN Creatinine Ratio 26.1 (10-20); Calcium 7.7 mg/dl (8.5-10.1); Creatinine Clr Calc Pharmacy 62.8 ml/min; Est GFR (African American) 88.3; Est GFR (Non-African American) 76.2; Magnesium 2.3 mg/dl (1.8-2.4); Potassium 3.6 mmol/L (3.5-5.1)
[2019-02-17] MEDS: PANTOprazole 40 MG in DEXTROSE 5% 100 ML IV SCH ×3 (04:50→13:16)
[2019-02-17] MEDS ORDERED: INFLUENZA Vaccine HIGH DOSE 65+yrs 0.5 mL Syr IM ONE (05:30)
[2019-02-17 06:21] LABS: Estimated Average Glucose 209 mg/dl; Hemoglobin A1C 8.9 % (4.5-5.6)
[2019-02-17] MEDS: INSULIN GLARGINE SOLOSTAR 100 UNITS/ML 3 ML PEN SC SCH (09:00)
--- NOTE | 2019-02-17 10:18 | Gastrointestinal Consultation ---
Date of Consultation February 17, 2019 Assessment & Plan (1) Anemia: (2) GI bleed: Pt is a 73 y/o male readmitted for painless rectal bleeding, syncope. Was just discharged about 1 week ago w similar symptoms, suspected to be related to ischemic vs diverticular bleeding. 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 Overnight he had been given 2u PRBC transfusion, Hgb responded 7.2 -> 8.4. - DC PPI gtt, may continue Protonix 40mg PO BID - Plan to keep him over the weekend for close monitoring and also prep him for Colonoscopy on Wednesday02/20/19. Please keep him on CL diet on , NPO after midnight 02/20 00:01 - Monitor H/H and transfuse prn Supervising Physician Co-Signing Physician Notes I saw and evaluated the patient. He presents with recurrent hematochezia. It appears that the patient was admitted last week for similar symptoms and thought to perhaps have ischemic colitis. The patient reports that he had several episodes of hematochezia yesterday but no recurrence as of this afternoon. He denies having any dark sticky stool. It appears that he was given a liquid diet this afternoon. Physical examination No obvious distress Abdominal tenderness Impression: Given recurrence of hematochezia I wonder about a diverticular etiology. If recurrent bleeding occurs the weekend I would suggest further evaluation with a GI bleeding scan. We are making arrangements for an elective colonoscopy to be performed on Wednesday for further evaluation of his symptoms. History of Present Illness Reason for Consultation: GI bleed Requesting Physician: Dr. Jesus Martinez Attending Physician: Dr. Jenni Phillip History of Present Illness Pt is a 73 y/o male who is readmitted for rectal bleeding. He was just disc harged about 1 week ago for same symptoms of painless rectal bleeding suspected to be ischemic vs diverticular in nature. He had Vascular Surgery eval for SMA stenosis, but surgical interventions planned. Already scheduled for colonoscopy eval on 03/28/2019. He went home and did have a couple of day of normal BMs. Yesterday felt constipated, took Colace and had 3 bloody BMs. He also has syncopal episode, fell over while on commode and hit L side of ribs. Upon eval , noted Hgb down to 7.2 (was around 9 last week on DC). Given 2U PRBC transfusion, Hgb up to 8.4 this AM. BUN up mildly 25. VS stable. No repeat abd imaging done this admission. Currently he denies any CP, SOB, abd pain,n/v, last BM overnight w blood still. Allergies Allergy/AdvReac Type Severity Reaction Status Date / Time No Known Allergies Allergy Unverified 02/16/19 19:59 Home Medications Home Medications Medication Instructions Recorded Confirmed Type Lantus Solostar U-100 Insulin 20 unit SUBCUT QAM 02/08/19 02/16/19 History Novolog Flexpen U-100 Insulin 10 unit SUBCUT BID 02/08/19 02/16/19 History aspirin [Aspir-81] 81 mg PO DAILY 02/08/19 02/16/19 History atorvastatin [Lipitor] 40 mg PO DAILY 02/08/19 02/16/19 History docusate sodium 100 mg PO DAILY 02/08/19 02/16/19 History lisinopril 20 mg PO DAILY 02/08/19 02/16/19 History multivitamin 1 tab PO DAILY 02/08/19 02/16/19 History pantoprazole 40 mg PO QAM 30 Days #30 tab 02/11/19 02/16/19 Rx acetaminophen [Tylenol Extra 500 mg PO Q6H PRN 02/16/19 02/16/19 History Strength] Patient History Medical History Acute kidney injury (Inactive 12/01/13) BPH (benign prostatic hypertrophy) with urinary retention (Chronic) "Present occultly for a while" Diabetes mellitus type II, uncontrolled (Chronic) Hernia HLD (hyperlipidemia) (Chronic) HTN (hypertension) (Chronic) Surgical History History of ankle surgery Family History Other Diabetes Social History Preferred Language: Russian Communication Ability: Effective Neurourologist Required: No Beliefs That Will Affect Care: None Current Living Situation: Spouse current occupational status: employed 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 Feels Safe at Home: Yes Smoking Status: Never smoker Hx Alcohol Use: No Hx Substance Use: No Review of Systems Review of Systems: All systems reviewed & are unremarkable except as noted in HPI & below Physical Exam Constitutional: WD/WN, vitals as above well groomed, cooperative and comfortable Eyes: PERRL, conjunctivae normal, anicteric sclerae ENMT: external ear and nose normal, oropharynx normal Respiratory: normal respiratory effort, lungs clear to auscultation Cardiovascular: RRR, no murmur, no edema Gastrointestinal (Abdomen): normal bowel sounds, soft, nontender, no hepatosplenomegaly Skin: no rashes, warm and dry no jaundice Psychiatric: A+Ox3, euthymic affect Lymphatic: no lymphedema Results & Data Vital Signs (Past 12 Hours) Vital Signs Temp Pulse Pulse Pulse Resp BP BP 02/17/19 07:52 36.7 C 63 18 114/68 02/17/19 04:43 36.7 C 65 17 02/17/19 02:36 37.2 C 65 16 118/73 02/17/19 01:40 36.9 C 65 20 113/63 02/17/19 00:40 36.8 C 77 18 118/62 02/17/19 00:10 36.9 C 79 16 118/68 02/16/19 23:55 36.9 C 81 18 118/68 02/16/19 23:41 36.8 C 77 18 134/66 02/16/19 22:36 36.9 C 83 16 130/66 BP Pulse Ox 02/17/19 07:52 94 02/17/19 04:43 122/67 97 02/17/19 02:36 98 02/17/19 01:40 98 02/17/19 00:40 99 02/17/19 00:10 99 02/16/19 23:55 98 02/16/19 23:41 100 02/16/19 22:36 98 (1) GI bleed GI bleed type/associated pathology: unspecified gastrointestinal hemorrhage type Qualified Code(s): K92.2 - Gastrointestinal hemorrhage, unspecified (2) Anemia Anemia type: unspecified type Qualified Code(s): D64.9 - Anemia, unspecified
[2019-02-17 10:53] LABS: Hematocrit (blood only) 23.5 % (42-52); Hemoglobin 8.3 g/dL (14.0-18.0)
--- NOTE | 2019-02-17 12:28 | Hospitalist Progress Note ---
Date of Service February 17, 2019 Assessment & Plan (1) GI bleed: This is a 73-year-old male who presents with gastrointestinal bleed and syncope. 1. Gastrointestinal bleed, recently in the hospital for gastrointestinal bleed, thought to be possibly from diverticular bleed versus ischemic colitis, was seen by vascular surgery, thought unlikely to be symptoms from ischemia. Comes back again with the blood per rectum. The patient thinks it initial bowel movement is dark could be black, but as per the daughter, it looked dark and later it was clock maker red color. Hold his aspirin. We will place on Protonix drip. GI eval. We will transfuse 2 units of PRBCs and H and H q. 6 hours. Keep him n.p.o. and GI consult in a.m. for possible colonoscopy and or EGD. Monitor the hemodynamics in the tele floor. IV normal saline 100 mL per hour for now. 2. Syncope, mostly likely from above. 3. History of diabetes. We will reduce his Lantus to 9 units in a.m. as the patient is currently n.p.o. and insulin sliding scale. Follow HbA1c levels. Follow his blood sugars. 4. History of hypertension. We will hold his lisinopril and place him on IV Vasotec p.r.n. Monitor his blood pressure. Restart lisinopril when blood pressure rises. 5. Hyperlipidemia. Hold statin for now. 6. Benign prostatic hypertrophy, status post TURP. 6. Deep venous thrombosis prophylaxis, sequential compression devices. Labs Checked DC in 1-3 days ROS-No Headache, No Visual Changes, No Nausea, No Vomiting, No Fever, No Chills, No Neck Pain or Stiffness, No Chest Pain, No Palpitations, No SOB, No TOBAR, No Cough, No Sputum, No Wheezing, No Abdominal Pain, No Diarrhea, No Hematemesis, No Hemoptysis, No Unexpected Weight Loss, No Flank pain, No Melena, No Hematochezia, No Frequency, No Urgency, No Burning, No Hematuria, No Rashes, No Diaphoresis. Appetite is Normal Physical Exam Gen-AAO x 3, NAD, Afebrile Head-NCAT, EOMI, PERRLA, Anicteric Sclera, No Posterior Pharyngeal Erythema Neck-Supple, No JVD, No Thyromegaly, No Masses, No LAD, No Bruits Lungs-Clear to Auscultation Bilaterally, No Rales, No Rhonchi, No Wheezing, No Crepitus Chest-No S4, +S1, +S2, No S3, No Murmurs, No Rubs, No Gallops, No Ectopy Abdomen-Soft, Bowel Sounds Present, Non Tender, Non Distended, No Hepatomegaly, No Splenomegaly, No Palpable Masses, No Rebound, No Rigidity, No Guarding Musculoskeletal-Full Range of Motion Bilaterally, No CVAT Extremities-No Cyanosis, No Clubbing, No Edema Nuero-Cranial Nerves II-XII grossly intact, Motor WNL, DTRs WNL, Strength WNL, Non Focal Psych-Normal Mood Results & Data Vital Signs (Past 12 Hours) Vital Signs Temp Pulse Pulse Pulse Resp BP BP 02/17/19 11:45 36.5 C 66 18 122/68 02/17/19 07:52 36.7 C 63 18 114/68 02/17/19 04:43 36.7 C 65 17 02/17/19 02:36 37.2 C 65 16 118/73 02/17/19 01:40 36.9 C 65 20 113/63 02/17/19 00:40 36.8 C 77 18 118/62 BP Pulse Ox 02/17/19 11:45 97 02/17/19 07:52 94 02/17/19 04:43 122/67 97 02/17/19 02:36 98 02/17/19 01:40 98 02/17/19 00:40 99 (1) GI bleed GI bleed type/associated pathology: unspecified gastrointestinal hemorrhage type Qualified Code(s): K92.2 - Gastrointestinal hemorrhage, unspecified
[2019-02-17] MEDS: PANTOprazole 40 MG TAB PO SCH (15:22)
[2019-02-17 16:42] LABS: Hematocrit (blood only) 24.8 % (42-52); Hemoglobin 8.6 g/dL (14.0-18.0)
[2019-02-17] MEDS ORDERED: POLYETHYLENE (MIRALAX) 17 GM PACK PO ONE ×2 (17:00→21:00)
[2019-02-18] MEDS: SODIUM CHLORIDE 0.9% 1000ML 1,000 ML IV SCH ×3 (06:04→18:23)
[2019-02-18 07:31] LABS: Hematocrit (blood only) 24.7 % (42-52); Hemoglobin 8.5 g/dL (14.0-18.0); Mean Corpuscular Hemoglobin 30.8 pg (25-34); Mean Corpuscular Hgb Conc 34.4 g/dL (32-36); Mean Corpuscular Volume 89.5 fL (80-100); Mean Platelet Volume 9.4 fL (7.4-10.4); Platelet Count 247 K/uL (130-400); RDW Coefficient of Variation 13.9 % (11.5-14.5); RDW Standard Deviation 45.4 fL (36.4-46.3); Red Blood Count 2.76 M/uL (4.7-6.1); White Blood Count 5.38 K/uL (4.8-10.8)
[2019-02-18 07:41] LABS: INR 1.1 (0.9-1.1); Prothrombin Time 10.8 Seconds (9.0-12.0)
[2019-02-18 08:12] LABS: BUN Creatinine Ratio 19.2 (10-20); Calcium 8.5 mg/dl (8.5-10.1); Creatinine Clr Calc Pharmacy 68.3 ml/min; Est GFR (African American) 97.9; Est GFR (Non-African American) 84.4; Potassium 3.8 mmol/L (3.5-5.1)
--- NOTE | 2019-02-18 08:12 | Hospitalist Progress Note ---
Date of Service February 18, 2019 Assessment & Plan (1) GI bleed: This is a 73-year-old male who presents with gastrointestinal bleed and syncope. 1. Gastrointestinal bleed, recently in the hospital for gastrointestinal bleed, thought to be possibly from diverticular bleed versus ischemic colitis, was seen by vascular surgery, thought unlikely to be symptoms from ischemia. Comes back again with the blood per rectum. The patient thinks it initial bowel movement is dark could be black, but as per the daughter, it looked dark and later it was architecture drafter red color. Hold his aspirin. We will place on Protonix drip. GI on case, SCope Tuesday 02/20. We transfused 2 units of PRBCs and serial H&Hs. Clears. Monitor the hemodynamics in the tele floor. IV normal saline 100 mL per hour for now. 2. Syncope, mostly likely from above. 3. History of diabetes. We will reduce his Lantus to 9 units in a.m. as the patient is currently n.p.o. and insulin sliding scale. Follow HbA1c levels. Follow his blood sugars. 4. History of hypertension. We will hold his lisinopril and place him on IV Vasotec p.r.n. Monitor his blood pressure. Restart lisinopril when blood pressure rises. 5. Hyperlipidemia. Hold statin for now. 6. Benign prostatic hypertrophy, status post TURP. 6. Deep venous thrombosis prophylaxis, sequential compression devices. Labs Checked DC in 2-3 days, Scope Wednesday Upper and Lower ROS-No Headache, No Visual Changes, No Nausea, No Vomiting, No Fever, No Chills, No Neck Pain or Stiffness, No Chest Pain, No Palpitations, No SOB, No TOBAR, No Cough, No Sputum, No Wheezing, No Abdominal Pain, No Diarrhea, No Hematemesis, No Hemoptysis, No Unexpected Weight Loss, No Flank pain, No Melena, No Hematochezia, No Frequency, No Urgency, No Burning, No Hematuria, No Rashes, No Diaphoresis. Appetite is Normal Physical Exam Gen-AAO x 3, NAD, Afebrile Head-NCAT, EOMI, PERRLA, Anicteric Sclera, No Posterior Pharyngeal Erythema Neck-Supple, No JVD, No Thyromegaly, No Masses, No LAD, No Bruits Lungs-Clear to Auscultation Bilaterally, No Rales, No Rhonchi, No Wheezing, No Crepitus Chest-No S4, +S1, +S2, No S3, No Murmurs, No Rubs, No Gallops, No Ectopy Abdomen-Soft, Bowel Sounds Present, Non Tender, Non Distended, No Hepatomegaly, No Splenomegaly, No Palpable Masses, No Rebound, No Rigidity, No Guarding Musculoskeletal-Full Range of Motion Bilaterally, No CVAT Extremities-No Cyanosis, No Clubbing, No Edema Nuero-Cranial Nerves II-XII grossly intact, Motor WNL, DTRs WNL, Strength WNL, Non Focal Psych-Normal Mood Results & Data Vital Signs (Past 12 Hours) Vital Signs Temp Pulse Resp BP BP Pulse Ox 02/18/19 07:08 36.5 C 71 19 132/65 97 02/18/19 05:00 36.6 C 66 18 132/72 96 02/17/19 22:38 36.6 C 67 20 132/72 96 (1) GI bleed GI bleed type/associated pathology: unspecified gastrointestinal hemorrhage type Qualified Code(s): K92.2 - Gastrointestinal hemorrhage, unspecified
[2019-02-18] MEDS: INSULIN ASPART 100 UNITS/ML 3 ML PEN SC SCH ×4 (08:39→20:45)
[2019-02-18] MEDS: PANTOprazole 40 MG TAB PO SCH (08:40)
[2019-02-18] MEDS: INSULIN GLARGINE SOLOSTAR 100 UNITS/ML 3 ML PEN SC SCH (08:40)
--- NOTE | 2019-02-18 09:38 | Gastroenterology Progress Note ---
Date of Service February 18, 2019 Supervising Physician Co-Signing Physician Notes 73 yo male with admission for rectal bleeding, prior imaging suggestive of celiac stenosis with no vascular intervention planned. can eat today, liquids tomorrow, prep tomorrow, NPO after midnite on Wednesday- Wednesday for colonoscopy Wednesday. He is not on any blood thinners. Subjective No acute complaints Passing some gas overnite - he feels better with that No further passage of blood per rectum No other acute complaints today other than wanting the light off in his room. Review of Systems Review of Systems: All systems reviewed & are unremarkable except as noted in HPI & below Physical Exam Physical Exam: Elderly male in nad Eyes: PERRL, conjunctivae normal, anicteric sclerae Cardiovascular: RRR, no murmur, no edema Gastrointestinal (Abdomen): normal bowel sounds, soft, nontender, no hepatosplenomegaly Skin: no rashes, warm and dry Neurologic: PERRL, EOMI, accommodation nl, no face palsy, no dysarthria Results & Data Vital Signs (Past 12 Hours) Vital Signs Temp Pulse Pulse Resp BP BP Pulse Ox 02/18/19 07:31 61 02/18/19 07:08 36.5 C 71 19 132/65 97 02/18/19 05:00 36.6 C 66 18 132/72 96 02/17/19 22:38 36.6 C 67 20 132/72 96 Labs reviewed- hgb essentially stable No new imaging
[2019-02-19] MEDS: SODIUM CHLORIDE 0.9% 1000ML 1,000 ML IV SCH ×3 (04:29→23:12)
[2019-02-19 06:06] LABS: Hematocrit (blood only) 23.4 % (42-52); Hemoglobin 7.9 g/dL (14.0-18.0); Mean Corpuscular Hemoglobin 30.3 pg (25-34); Mean Corpuscular Hgb Conc 33.8 g/dL (32-36); Mean Corpuscular Volume 89.7 fL (80-100); Mean Platelet Volume 8.4 fL (7.4-10.4); Platelet Count 225 K/uL (130-400); RDW Coefficient of Variation 13.8 % (11.5-14.5); Red Blood Count 2.61 M/uL (4.7-6.1); White Blood Count 4.87 K/uL (4.8-10.8)
[2019-02-19 06:41] LABS: Calcium 7.9 mg/dl (8.5-10.1); Creatinine Clr Calc Pharmacy 68.3 ml/min; Est GFR (African American) 97.9; Est GFR (Non-African American) 84.4; Potassium 3.7 mmol/L (3.5-5.1)
--- NOTE | 2019-02-19 07:10 | Hospitalist Progress Note ---
Date of Service February 19, 2019 Assessment & Plan (1) GI bleed: This is a 73-year-old male who presents with gastrointestinal bleed and syncope. 1. Gastrointestinal bleed, recently in the hospital for gastrointestinal bleed, thought to be possibly from diverticular bleed versus ischemic colitis, was seen by vascular surgery, thought unlikely to be symptoms from ischemia. Comes back again with the blood per rectum. The patient thinks it initial bowel movement is dark could be black, but as per the daughter, it looked dark and later it was fire observer red color. Hold his aspirin. We will place on Protonix drip. GI on case, SCope Tuesday 02/20. We transfused 2 units of PRBCs and serial H&Hs. Clears. Monitor the hemodynamics on the tele floor. IV normal saline 100 mL per hour for now. 2. Syncope, mostly likely from above. 3. History of diabetes. We will reduce his Lantus to 9 units in a.m. as the patient is currently n.p.o. and insulin sliding scale. Follow HbA1c levels. Follow his blood sugars. 4. History of hypertension. We will hold his lisinopril and place him on IV Vasotec p.r.n. Monitor his blood pressure. Restart lisinopril when blood pressure rises. 5. Hyperlipidemia. Hold statin for now. 6. Benign prostatic hypertrophy, status post TURP. 6. Deep venous thrombosis prophylaxis, sequential compression devices. Labs Checked DC in 2-3 days, Scope Wednesday Upper and Lower, doing well ROS-No Headache, No Visual Changes, No Nausea, No Vomiting, No Fever, No Chills, No Neck Pain or Stiffness, No Chest Pain, No Palpitations, No SOB, No TOBAR, No Cough, No Sputum, No Wheezing, No Abdominal Pain, No Diarrhea, No Hematemesis, No Hemoptysis, No Unexpected Weight Loss, No Flank pain, No Melena, No Hematochezia, No Frequency, No Urgency, No Burning, No Hematuria, No Rashes, No Diaphoresis. Appetite is Normal Physical Exam Gen-AAO x 3, NAD, Afebrile Head-NCAT, EOMI, PERRLA, Anicteric Sclera, No Posterior Pharyngeal Erythema Neck-Supple, No JVD, No Thyromegaly, No Masses, No LAD, No Bruits Lungs-Clear to Auscultation Bilaterally, No Rales, No Rhonchi, No Wheezing, No Crepitus Chest-No S4, +S1, +S2, No S3, No Murmurs, No Rubs, No Gallops, No Ectopy Abdomen-Soft, Bowel Sounds Present, Non Tender, Non Distended, No Hepatomegaly, No Splenomegaly, No Palpable Masses, No Rebound, No Rigidity, No Guarding Musculoskeletal-Full Range of Motion Bilaterally, No CVAT Extremities-No Cyanosis, No Clubbing, No Edema Nuero-Cranial Nerves II-XII grossly intact, Motor WNL, DTRs WNL, Strength WNL, Non Focal Psych-Normal Mood Results & Data Vital Signs (Past 12 Hours) Vital Signs Temp Pulse Resp BP BP Pulse Ox 02/19/19 03:32 36.7 C 61 18 122/55 L 94 02/18/19 23:57 36.6 C 65 18 149/66 H 97 02/18/19 20:04 36.4 C L 62 18 133/67 98 (1) GI bleed GI bleed type/associated pathology: unspecified gastrointestinal hemorrhage type Qualified Code(s): K92.2 - Gastrointestinal hemorrhage, unspecified
[2019-02-19] MEDS: INSULIN GLARGINE SOLOSTAR 100 UNITS/ML 3 ML PEN SC SCH (08:17)
[2019-02-19] MEDS: PANTOprazole 40 MG TAB PO SCH (08:17)
[2019-02-19] MEDS: INSULIN ASPART 100 UNITS/ML 3 ML PEN SC SCH ×4 (08:21→20:55)
--- NOTE | 2019-02-19 09:43 | Gastroenterology Progress Note ---
Date of Service February 19, 2019 Supervising Physician Co-Signing Physician Notes prep today colon tomorrow to evaluate for ischemic colitis. NPO after midnite. Subjective No acute complaints Sitting up in chair No further episodes of bloody bowel movements No abdominal pain reported to me this morning Review of Systems Review of Systems: All systems reviewed & are unremarkable except as noted in HPI & below Physical Exam Physical Exam: Well nourished male in nad Constitutional: WD/WN, vitals as above well developed and well nourished; no acute distress Eyes: PERRL, conjunctivae normal, anicteric sclerae Gastrointestinal (Abdomen): normal bowel sounds, soft, nontender, no hepatosplenomegaly Skin: no rashes, warm and dry Neurologic: CN's II-XI intact bilaterally Psychiatric: A+Ox3, euthymic affect Results & Data Vital Signs (Past 12 Hours) Vital Signs Temp Pulse Resp BP BP Pulse Ox 02/19/19 08:01 36.4 C L 73 17 132/68 97 02/19/19 03:32 36.7 C 61 18 122/55 L 94 02/18/19 23:57 36.6 C 65 18 149/66 H 97 Labs reviewed- slight downtrend to hgb No new imaging
[2019-02-19] MEDS ORDERED: POLYETHYLENE (MIRALAX) 17 GM PACK PO ONE ×2 (17:00→21:00)
[2019-02-19] MEDS ORDERED: bisacodyL 5 MG TABEC PO ONE (17:00)
[2019-02-20 06:46] LABS: Hematocrit (blood only) 25.5 % (42-52); Hemoglobin 8.5 g/dL (14.0-18.0); Mean Corpuscular Hemoglobin 30.5 pg (25-34); Mean Corpuscular Hgb Conc 33.3 g/dL (32-36); Mean Corpuscular Volume 91.4 fL (80-100); Platelet Count 308 K/uL (130-400); RDW Coefficient of Variation 13.8 % (11.5-14.5); RDW Standard Deviation 45.7 fL (36.4-46.3); Red Blood Count 2.79 M/uL (4.7-6.1); White Blood Count 5.76 K/uL (4.8-10.8)
[2019-02-20 07:23] LABS: BUN Creatinine Ratio 10.3 (10-20); Calcium 8.2 mg/dl (8.5-10.1); Creatinine Clr Calc Pharmacy 69.1 ml/min; Est GFR (African American) 98.3; Est GFR (Non-African American) 84.8; Potassium 3.7 mmol/L (3.5-5.1)
--- NOTE | 2019-02-20 07:37 | Discharge Summary ---
Date of Service February 20, 2019 Admission HPI Per Admitting Provider 73-year-old male with past medical history significant for type 2 diabetes, hypertension, hyperlipidemia, history of BPH, who was recently in the hospital, admitted on February 08 with a GI bleed and syncope. The GI bleed thought to be from diverticular bleed or ischemic colitis, was evaluated by Vascular. Vascular thought it is mostly nonischemic and recommended to do CTA of abdomen and pelvis for completion when the patient is able to tolerate and he supposed to get colonoscopy in 4-6 weeks and was discharged on Protonix. The patient states after going home, he was doing okay, then he got constipated and took stool softener, which helped move his bowels. Yesterday, bowel movements were normal, but today he had 3 bloody bowel movements. He was at work and he was suddenly felt like urge to go to bathroom and then he suddenly passed out and fell down on the left side for a few seconds and came back to consciousness, no biting of tongue, no incontinence during the episode, no shaking of the body. He has some discomfort on the left side of the chest from the fall after that, he had another bloody bowel movement and then he decided to come to the ER. Here, his hemoglobin is 7.2. On discharge, his hemoglobin was 9.8 on February 11. His hemodynamics are stable. Denies any abdominal pain. He says after his bloody bowel movement, actually he felt better. Denies any nausea, vomiting. No chest pain, no shortness of breath, occasional cough, no fever, no chills. He has some cold kind of symptoms, but denies any blurred visions, earache, sore throat, no difficulty swallowing. Appetite is okay, sleeping okay. No recent weight gain, weight loss. No night sweats. Ambulates okay. No hematuria or burning micturition, no swelling in the legs, no rash anywhere. At work, he has exposure to some chemicals and he sometimes gets itchiness. Admission Exam Per Admitting Provider GENERAL: The patient is of moderate built, not in acute distress. VITAL SIGNS: Temperature 36.5, pulse 85, respiratory rate 20, blood pressure 115/65, oxygen 98% on room air. HEENT: No pallor, no icterus. Pupils equal, round, reactive to light. Extraocular muscles intact. NECK: No JVD, no neck masses, no carotid bruits. CARDIOVASCULAR: S1, S2 heard, regular rate and rhythm, no murmur, no gallop. RESPIRATORY SYSTEM: Normal AP diameter. No accessory muscle use. No wheezing, no crackles. ABDOMEN: Soft, bowel sounds present, nontender. No distention. CENTRAL NERVOUS SYSTEM: Cranial nerves II-XII grossly intact. Nonfocal. EXTREMITIES: No edema, no erythema. Principal Diagnosis 1. Gastrointestinal bleed 3. Diabetes. 4. Hypertension. 5. Hyperlipidemia. 6. Benign prostatic hypertrophy. 7. Acute GI Blood Loss anemia Discharge Exam Physical Exam Gen-AAO x 3, NAD, Afebrile Head-NCAT, EOMI, PERRLA, Anicteric Sclera, No Posterior Pharyngeal Erythema Neck-Supple, No JVD, No Thyromegaly, No Masses, No LAD, No Bruits Lungs-Clear to Auscultation Bilaterally, No Rales, No Rhonchi, No Wheezing, No Crepitus Chest-No S4, +S1, +S2, No S3, No Murmurs, No Rubs, No Gallops, No Ectopy Abdomen-Soft, Bowel Sounds Present, Non Tender, Non Distended, No Hepatomegaly, No Splenomegaly, No Palpable Masses, No Rebound, No Rigidity, No Guarding Musculoskeletal-Full Range of Motion Bilaterally, No CVAT Extremities-No Cyanosis, No Clubbing, No Edema Nuero-Cranial Nerves II-XII grossly intact, Motor WNL, DTRs WNL, Strength WNL, Non Focal Psych-Normal Mood Discharge Data Allergies Allergy/AdvReac Type Severity Reaction Status Date / Time No Known Allergies Allergy Unverified 02/16/19 19:59 Consultations 02/16/19 19:51 ED Decision to Admit Stat 02/16/19 22:38 Consult Case Management - Discharge Planning Routine 02/17/19 08:00 Consult Gastroenterology Routine Procedures Performed Operation Date: 02/20/19 16:00 <No data on this case meets the specified criteria> Current Diagnoses Anemia, unspecified (02/16/19) Gastrointestinal hemorrhage, unspecified (02/16/19) Allergies No Known Allergies Allergy (Unverified 02/16/19 19:59) Height/Weight/Isolation Height 5 ft 7 in Weight 74.5 kg Chemistry 02/18/19 02/19/19 02/20/19 06:53 05:51 06:02 Sodium 142 143 143 Potassium 3.8 3.7 3.7 Chloride 113 H 115 H 115 H Carbon Dioxide 23 25 24 Anion Gap 6.0 3.0 4.0 BUN 17 13 9 Creatinine 0.90 0.90 0.89 Glucose 100 H 98 122 H Hospital Course (1) GI bleed: This is a 73-year-old male who presents with gastrointestinal bleed and syncope. 1. Gastrointestinal bleed with Acute GI Blood Loss anemia, recently in the hospital for gastrointestinal bleed, thought to be possibly from diverticular bleed versus ischemic colitis, was seen by vascular surgery, thought unlikely to be symptoms from ischemia. Comes back again with the blood per rectum. 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 Hold his aspirin. We will place on Protonix drip. GI on case, SCope Tuesday 02/20. We transfused 2 units of PRBCs and serial H&Hs. Clears. Monitor the hemodynamics on the tele floor. IV normal saline 100 mL per hour for now. 2. Syncope, mostly likely from above. 3. History of diabetes. We will reduce his Lantus to 9 units in a.m. as the patient is currently n.p.o. and insulin sliding scale. Follow HbA1c levels. Follow his blood sugars. 4. History of hypertension. We will hold his lisinopril and place him on IV Vasotec p.r.n. Monitor his blood pressure. Restart lisinopril when blood pressure rises. 5. Hyperlipidemia. Hold statin for now. 6. Benign prostatic hypertrophy, status post TURP. Labs Checked DC todayno active bleed, one polyp removed Total Time Total Time Spent Total Time Spent (In Minutes): 40 mins Total Time Includes: Examination of the Patient, Discharge Planning, Medication Reconciliation and Communication With Other Providers Discharge Plan Discharge Items Patient Disposition: Home - Self-Care Reason For Visit: SYNCOPE, GI BLEED Discharge Diagnosis: 1. Gastrointestinal bleed 3. Diabetes. 4. Hypertension. 5. Hyperlipidemia. 6. Benign prostatic hypertrophy. Condition on Discharge: Good Activity: Resume your previous activity Lifting: None and Gradually increase as tolerated Bathing: No limitations Sexual Activity: When tolerated Driving/Machine Use: No limitations Weightbearing: Full weightbearing Non-emergency contact: Primary Care Provider and [employer] Call non-emergency contact if: you have any medication questions Follow-up/Referrals: Moo Kelly MD [Primary Care Provider] - 02/24/19 10:45 am Josué Harley [Physician] - (2-3 weeks) Diet: Carb Consistent or DM2 and Heart Healthy Addtl Attending Provider Instructions: None Stand-Alone Forms: [facility] [employer], Smoking Cessation Medications and DC Order Prescriptions: New pantoprazole 40 mg Tablet,Delayed Release (Dr/Ec) 40 mg PO DAILY Qty: 30 RF: 0 Continued multivitamin Tablet 1 tab PO DAILY RF: 0 atorvastatin [Lipitor] 40 mg tablet 40 mg PO DAILY RF: 0 docusate sodium 100 mg Capsule 100 mg PO DAILY RF: 0 Novolog Flexpen U-100 Insulin 100 unit/mL (3 mL) insulin pen 10 unit SUBCUT BID RF: 0 Lantus Solostar U-100 Insulin 100 unit/mL (3 mL) insulin pen 20 unit SUBCUT QAM RF: 0 lisinopril 20 mg Tablet 20 mg PO DAILY RF: 0 pantoprazole 40 mg Tablet,Delayed Release (Dr/Ec) 40 mg PO QAM 30 Days Qty: 30 RF: 0 acetaminophen [Tylenol Extra Strength] 500 mg Tablet 500 mg PO Q6H PRN (Reason: Pain) RF: 0 aspirin [Aspir-81] 81 mg Tablet,Delayed Release (Dr/Ec) 81 mg PO DAILY Qty: 0 RF: 0 Discharge Orders: Discharge Order (Routine); Ordered 02/20/19 Ordered By: Jesus Martinez Admission Data Admit Date/Time: 02/16/19 20:09 Attending Provider: Jesus Martinez Admit Provider: Toi Cleary Primary Care Provider: Moo Kelly Other Providers: Toi Cleary ; Indira Baker ; Cassie Kc ; Erin Downs ; Romana Finley ; Guido Manzano ; Jenni Phillip ; Michell Bauer ; Louann Rodriguez ; Fahad Muñoz ; Josué Harley ; Fiordaliza Bates ; Estelle Correa ; Mariela Boucher ; Evangelina Mendez ; Carlos Yun Other Interventions: Discharge Summary Assessment (RN) Last Done: 02/20/19 11:57
[2019-02-20] MEDS: INSULIN GLARGINE SOLOSTAR 100 UNITS/ML 3 ML PEN SC SCH (08:46)
[2019-02-20] MEDS: INSULIN ASPART 100 UNITS/ML 3 ML PEN SC SCH ×2 (08:46→12:20)
[2019-02-20] MEDS: SODIUM CHLORIDE 0.9% 1000ML 1,000 ML IV SCH (09:24)
--- NOTE | 2019-02-20 10:43 | Anesthesiology Consultation ---
Date of Service February 20, 2019 Assessment & Plan (1) Encounter for pre-operative examination: Chart Review Chart Review: Acceptable Risk for Surgery and Patient NOT seen in Pre Admission Testing Consults Requested none History Surgery Operation Date: 02/20/19 16:00 Proposed Procedures p Colonoscopy Dr Cricket Harley Height/Weight Height: 5 ft 7 in Weight: 74.5 kg Allergies Allergy/AdvReac Type Severity Reaction Status Date / Time No Known Allergies Allergy Unverified 02/16/19 19:59 Medications Home Medications Medication Instructions Recorded Confirmed Last Taken Lantus Solostar U-100 Insulin 20 unit SUBCUT QAM 02/08/19 02/16/19 02/07/19 22:30 Novolog Flexpen U-100 Insulin 10 unit SUBCUT BID 02/08/19 02/16/19 02/08/19 09:30 aspirin [Aspir-81] 81 mg PO DAILY 02/08/19 02/16/19 02/08/19 09:00 atorvastatin [Lipitor] 40 mg PO DAILY 02/08/19 02/16/19 02/08/19 09:30 docusate sodium 100 mg PO DAILY 02/08/19 02/16/19 Unknown lisinopril 20 mg PO DAILY 02/08/19 02/16/19 Unknown multivitamin 1 tab PO DAILY 02/08/19 02/16/19 Unknown pantoprazole 40 mg PO QAM 30 Days #30 tab 02/11/19 02/16/19 Unknown acetaminophen [Tylenol Extra 500 mg PO Q6H PRN 02/16/19 02/16/19 Unknown Strength] pantoprazole 40 mg PO DAILY #30 tab 02/20/19 Unknown Active Medications Generic Name Dose Route Start Last Admin Trade Name Freq PRN Reason Stop Dose Admin Sodium Chloride 1,000 mls @ 100 mls/hr 02/16/19 22:38 02/20/19 09:24 Nss 1000ml IV 03/18/19 22:37 100 mls/hr .Q10H BETO Administration Insulin Aspart 0 units 02/16/19 22:38 02/20/19 08:46 Novolog Flexpen SC 03/18/19 22:37 Not Given ACHS BETO Insulin Glargine 9 units 02/17/19 09:00 02/20/19 08:46 Lantus Solostar Pen SC 03/19/19 08:59 9 units DAILY BETO Administration Pantoprazole Sodium 40 mg 02/17/19 13:30 02/19/19 08:17 Protonix PO 03/19/19 13:29 40 mg DAILY BETO Administration NPO Date Last Intake of Fluids: 02/19/19 Time Last Intake of Fluids: 00:00 Date Last Intake of Solids: 02/15/19 Past Medical History Medical History Acute kidney injury (Inactive 12/01/13) BPH (benign prostatic hypertrophy) with urinary retention (Chronic) "Present occultly for a while" Diabetes mellitus type II, uncontrolled (Chronic) Hernia HLD (hyperlipidemia) (Chronic) HTN (hypertension) (Chronic) Past Family History Family History Other Diabetes Past Surgical History Surgical History History of ankle surgery Social History Smoking Status: Never smoker Hx Alcohol Use: No Hx Substance Use: No Physical Exam Vital Signs Last Vital Signs Temp 36.9 C 02/20/19 10:29 Pulse 90 02/20/19 10:29 Resp 16 02/20/19 10:29 BP 181/80 H 02/20/19 10:29 Pulse Ox 99 02/20/19 10:29 Testing Laboratory Results 02/20/19 06:02 02/20/19 06:02 PT 10.8 Seconds (9.0-12.0) 02/18/19 06:53 INR 1.1 (0.9-1.1) 02/18/19 06:53 APTT 23.7 Seconds (21.0-31.0) 02/16/19 18:16 Hemoglobin A1c 8.9 % (4.5-5.6) H 02/17/19 04:07 Blood Type O Positive 02/16/19 18:24 Antibody Screen NEGATIVE 02/16/19 18:24 02/20/19 08:43 POC Glucose 131 H
--- NOTE | 2019-02-20 10:46 | History & Physical Report ---
Date of Service February 20, 2019 Assessment & Plan (1) Rectal bleeding: stable for colonoscopy History of Present Illness Chief Complaint: rectal bleeding Primary Care Provider: Moo Kelly MD pt with rectal bleeding for colonoscopy Allergies Allergy/AdvReac Type Severity Reaction Status Date / Time No Known Allergies Allergy Unverified 02/16/19 19:59 Home Medications Home Medications Medication Instructions Recorded Confirmed Type Lantus Solostar U-100 Insulin 20 unit SUBCUT QAM 02/08/19 02/16/19 History Novolog Flexpen U-100 Insulin 10 unit SUBCUT BID 02/08/19 02/16/19 History aspirin [Aspir-81] 81 mg PO DAILY 02/08/19 02/16/19 History atorvastatin [Lipitor] 40 mg PO DAILY 02/08/19 02/16/19 History docusate sodium 100 mg PO DAILY 02/08/19 02/16/19 History lisinopril 20 mg PO DAILY 02/08/19 02/16/19 History multivitamin 1 tab PO DAILY 02/08/19 02/16/19 History pantoprazole 40 mg PO QAM 30 Days #30 tab 02/11/19 02/16/19 Rx acetaminophen [Tylenol Extra 500 mg PO Q6H PRN 02/16/19 02/16/19 History Strength] pantoprazole 40 mg PO DAILY #30 tab 02/20/19 Rx Past Med/Surg History Medical History Acute kidney injury (Inactive 12/01/13) BPH (benign prostatic hypertrophy) with urinary retention (Chronic) "Present occultly for a while" Diabetes mellitus type II, uncontrolled (Chronic) Hernia HLD (hyperlipidemia) (Chronic) HTN (hypertension) (Chronic) Surgical History History of ankle surgery Family History Other Diabetes Social History Preferred Language: Malagasy Communication Ability: Effective Loom Doffer Required: No Beliefs That Will Affect Care: None marital status: Current Living Situation: Spouse current occupational status: employed 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 Feels Safe at Home: Yes Smoking Status: Never smoker Hx Alcohol Use: No Hx Substance Use: No Physical Exam Constitutional: WD/WN, vitals as above Respiratory: normal respiratory effort, lungs clear to auscultation Cardiovascular: RRR, no murmur, no edema Gastrointestinal (Abdomen): normal bowel sounds, soft, nontender, no hepatosplenomegaly Results & Data Vital Signs (Past 12 Hours) Vital Signs Temp Pulse Pulse Resp BP BP Pulse Ox 02/20/19 10:29 36.9 C 90 16 181/80 H 99 02/20/19 08:00 36.6 C 87 69 18 132/69 100 02/20/19 03:30 36.7 C 74 18 126/68 98 02/20/19 00:14 36.7 C 85 22 128/71 98 Code Status & VTE Plan VTE Prophylaxis Plan VTE Prophylaxis will be ordered: Yes
[2019-02-20] MEDS ORDERED: ePHEDrine sulfate 50 MG/ML AMP IV PRN (10:47)
[2019-02-20] MEDS ORDERED: ATROPINE SULFATE 0.1 MG/ML 10ML SYR IV PRN (10:47)
[2019-02-20] MEDS ORDERED: fentaNYL citrate 100 MCG/2 ML VIAL ONE (11:05)
[2019-02-20] MEDS ORDERED: PROPOFOL IV EMULSION 10 MG/ML 20 ML VIAL IV ONE (11:18)
--- NOTE | 2019-02-20 11:18 | GI REPORT ---
Patient Name: Jah Neil Procedure Date: 02/20/2019 10:45 AM Date of : 1945 Admit Type: Inpatient Age: 73 Gender: Male Attending MD: Josué Harley MD Procedure: Colonoscopy Providers: Josué Harley MD Referring MD: Jesus Martinez Do Indications: Rectal bleeding Medicines: See the Anesthesia note for documentation of the administered medications Complications: No immediate complications. Estimated Blood Loss: Estimated blood loss was minimal. Procedure: Pre-Anesthesia Assessment: - Prior to the procedure, a History and Physical was performed, and patient medications, allergies and sensitivities were reviewed. The patient's tolerance of previous anesthesia was reviewed. - The risks and benefits of the procedure and the sedation options and risks were discussed with the patient. All questions were answered and informed consent was obtained. - Patient identification and proposed procedure were verified prior to the procedure by the physician and the nurse. The procedure was verified in the pre-procedure area. - Pre-procedure physical examination revealed no contraindications to sedation. - After reviewing the risks and benefits, the patient was deemed in satisfactory condition to undergo the procedure. After I obtained informed consent, the scope was passed under direct vision. Throughout the procedure, the patient's blood pressure, pulse, and oxygen saturations were monitored continuously. The Colonoscope was introduced through the anus and advanced to the terminal ileum, with identification of the appendiceal orifice and IC valve. The colonoscopy was performed without difficulty. The patient tolerated the procedure well. The quality of the bowel preparation was good. Findings: The perianal and digital rectal examinations were normal. The terminal ileum appeared normal. Multiple small-mouthed diverticula were found in the sigmoid colon. A 5 mm polyp was found at 25 cm proximal to the anus. The polyp was sessile. The polyp was removed with a cold snare. Resection and retrieval were complete. Verification of patient identification for the specimen was done by the physician and nurse using the patient's name and medical record number. Estimated blood loss was minimal. No additional abnormalities were found on retroflexion. Impression: - The examined portion of the ileum was normal. - Diverticulosis in the sigmoid colon. - One 5 mm polyp at 25 cm proximal to the anus, removed with a cold snare. Resected and retrieved. Recommendation: - Await pathology results. - [facility]. Josué Harley M.D. Josué Harley MD 02/20/2019 11:18:09 AM This report has been signed electronically. Note Initiated On: 02/20/2019 10:45 AM Number of Addenda: 0 I attest to the content of the Intraoperative Record and orders documented therein, exceptions below {[id number]}
[2019-02-20] MEDS: PANTOprazole 40 MG TAB PO SCH (12:38)
--- NOTE | 2019-02-20 15:30 | Anesthesiology Progress Note ---
Date of Service February 20, 2019 Anesthesia Post Procedure Vital Signs Vital Signs: Temp Pulse Pulse Pulse Resp BP BP 02/20/19 12:17 36.9 C 65 71 18 132/69 112/52 L 02/20/19 11:45 71 18 112/52 L 02/20/19 11:30 74 18 113/51 L 02/20/19 11:15 75 16 105/38 L 02/20/19 10:29 36.9 C 90 16 181/80 H 02/20/19 08:00 36.6 C 87 69 18 132/69 02/20/19 03:30 36.7 C 74 18 126/68 02/20/19 00:14 36.7 C 85 22 128/71 02/19/19 19:56 36.6 C 71 18 133/68 02/19/19 15:52 36.6 C 63 18 137/62 Pulse Ox 02/20/19 12:17 99 02/20/19 11:45 99 02/20/19 11:30 98 02/20/19 11:15 99 02/20/19 10:29 99 02/20/19 08:00 100 02/20/19 03:30 98 02/20/19 00:14 98 02/19/19 19:56 99 02/19/19 15:52 97 Pain Intensity Left Ribs: Pain Intensity: 3 Transfer of Care Handoff Completed per policy Notes Mental Status: alert / awake / arousable Patient Amnestic to Procedure: Yes Nausea / Vomiting: adequately controlled Pain: adequately controlled Airway Patency, RR, SpO2: stable & adequate BP & HR: stable & adequate Hydration State: stable & adequate Anesthetic Complications: no major complications apparent and Pt Satisfied with anesthetic care
== END 2019-02-20 13:55 | disposition home or self-care (01) | DRG 378 ==
LOC: ED 17:29 → 2S 20:09 → UNDODISIN 02-20 13:55

== ENCOUNTER 2019-02-27 12:03 | Inpatient (IN) ==
[2019-02-27] MEDS ORDERED: MAGNESIUM HYDROXIDE SUSP 30 ML UDC PO PRN (13:02)
[2019-02-27] MEDS ORDERED: ACETAMINOPHEN 325 MG TAB PO PRN (13:02)
[2019-02-27] MEDS ORDERED: ALUMINUM/MAGNESIUM SUSP 30 ML UDC PO PRN (13:02)
[2019-02-27] MEDS ORDERED: POLYETHYLENE (MIRALAX) 17 GM PACK PO PRN (13:02)
[2019-02-27] MEDS ORDERED: ONDANSETRON INJ 2 MG/ML 2 ML VIAL IV PRN (13:02)
[2019-02-27] MEDS ORDERED: SODIUM CHLORIDE 0.9% 250 ML IV PRN ×2 (13:25→14:20)
[2019-02-27] MEDS ORDERED: DEXTROSE 50% 50 ML SYRINGE IV PRN (13:34)
[2019-02-27] MEDS ORDERED: CARBOHYDRATES FOR HYPOGLYCEMIA PO PRN (13:34)
[2019-02-27] MEDS ORDERED: GLUCOSE 10 TABS/TUBE PO PRN (13:34)
[2019-02-27] MEDS ORDERED: GLUCAGON FOR INJ 1 MG VIAL SQ PRN (13:34)
[2019-02-27] MEDS ORDERED: GLUCOSE 40% GEL 15 GM TUBE PO PRN (13:34)
--- NOTE | 2019-02-27 13:49 | Gastrointestinal Consultation ---
Date of Consultation February 27, 2019 Assessment & Plan (1) Anemia: (2) Rectal bleeding: Pt is a 73 y/o male, directly admitted for anemia, rectal bleeding. This is his 3rd admission this month for similar reasons. He reports stools were loose, dark a few days ago but solid now w dark red blood. Colonoscopy about 1 week ago w/o findings of LGIB. Suspect he is having small bowel bleed - OK for CL diet today, NPO after midnight. - Plan for EGD/small bowel enteroscopy and colonoscopy evals tomorrow. Bowel prep w Golytely ordered - IVF resuscitation - PPI bolus and gtt - Agree w blood transfusion, monitor H/H closely Supervising Physician Co-Signing Physician Notes Attending attestation I have seen, examined this patient, and agree with the findings and above by our mid-level provider SULAIMAN Jaeger, with the following additions: Hb declined from 7.4 to 6.5 from 02/24 to 02/27. Patient with overt obscure bleeding. Has mahgoney colored stool, BP is stable and robust without orthostasis. Will require EGD +/- Enteroscopy Repeat Colonoscopy IV PPI gtt NPO Call with any questions, concerns or change in clinical status. History of Present Illness Reason for Consultation: Anemia, rectal bleeding Requesting Physician: Dr. Jacek Collado Attending Physician: Dr. Guido Manzano History of Present Illness Pt is a 73 y/o male, directly admitted from PCP's office for anemia and rectal bleeding. This is his 3rd admission this month for rectal bleeding initially suspected to be diverticular in nature vs ischemic in nature (previous CTA showed 75% stenosis of SMA). At his last admission, he had colonoscopy by Dr. Harley on 02/20/18 which showed sigmoid diverticulosis, TA polyp. He denies any BMs over last weekend, then started to have stools w rectal bleeding again. At one point a few days ago, stools were loose, dark in color w bright red blood ring around it. Today he had 2 BMs - solid stools but dark in color, with dark red blood around stools. CBC in outpt clinic showed H/H 6.5/18. Repeat bloodwork in here showed H/H 6.3/19, Plt 313, INR 1, BUN/Cr 35/1.1. Total iron and ferritin low 11, 7.7 respectively. He is currently hemodynamically stable. Denie s any light headedness, dizziness, CP, SOB, abd pain, n/v. Allergies Allergy/AdvReac Type Severity Reaction Status Date / Time No Known Allergies Allergy Unverified 02/16/19 19:59 Home Medications Home Medications Medication Instructions Recorded Confirmed Type Lantus Solostar U-100 Insulin 20 unit SUBCUT QAM 02/08/19 02/27/19 History Novolog Flexpen U-100 Insulin 10 unit SUBCUT TID 02/08/19 02/27/19 History atorvastatin [Lipitor] 40 mg PO DAILY 02/08/19 02/27/19 History docusate sodium 100 mg PO DAILY 02/08/19 02/27/19 History lisinopril 20 mg PO DAILY 02/08/19 02/27/19 History pantoprazole 40 mg PO QAM 30 Days #30 tab 02/11/19 02/27/19 Rx acetaminophen [Tylenol Extra 500 mg PO Q6H PRN 02/16/19 02/27/19 History Strength] aspirin [Aspir-81] 81 mg PO DAILY #0 tab 02/20/19 02/27/19 Rx pantoprazole 40 mg PO DAILY #30 tab 02/20/19 02/27/19 Rx Patient History Medical History (Updated 02/27/19 @ 14:57 by Breann Hardin PA-C) BPH (benign prostatic hypertrophy) with urinary retention (Chronic) "Present occultly for a while" Diabetes mellitus type II, uncontrolled (Chronic) Hernia HLD (hyperlipidemia) (Chronic) HTN (hypertension) (Chronic) Surgical History (Updated 02/27/19 @ 14:39 by Breann Hardin PA-C) History of ankle surgery History of hernia repair History of prostate surgery Family History Other Diabetes Social History Preferred Language: Greenlandic Communication Ability: Effective Senior Policy Associate Required: No Beliefs That Will Affect Care: None marital status: Current Living Situation: Spouse current occupational status: employed 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 Other Information That Helps Us Care for You: No Feels Safe at Home: Yes Safety Concerns: Feels Safe At This Time Smoking Status: Never smoker Hx Alcohol Use: Yes Hx Substance Use: No Review of Systems Review of Systems: All systems reviewed & are unremarkable except as noted in HPI & below Physical Exam Constitutional: WD/WN, vitals as above well groomed, cooperative and comfortable Eyes: PERRL, conjunctivae normal, anicteric sclerae ENMT: external ear and nose normal, oropharynx normal Respiratory: normal respiratory effort, lungs clear to auscultation Cardiovascular: RRR, no murmur, no edema Gastrointestinal (Abdomen): normal bowel sounds, soft, nontender, no hepatosplenomegaly Skin: + pallor Neurologic: Motor/Sensory: no asterixis Psychiatric: A+Ox3, euthymic affect Lymphatic: no lymphedema (1) Anemia Anemia type: unspecified type Qualified Code(s): D64.9 - Anemia, unspecified
[2019-02-27 13:58] LABS: Partial Thromboplastin Time 26.5 Seconds (21.0-31.0); Prothrombin Time 10.4 Seconds (9.0-12.0)
[2019-02-27] MEDS ORDERED: PANTOprazole 80 MG in DEXTROSE 5% 100 ML IV SCH (14:00)
[2019-02-27] MEDS ORDERED: PATIENT'S HEIGHT AND/OR WEIGHT NEEDED SCH (14:00)
[2019-02-27 14:04] LABS: Albumin Level 2.9 gm/dl (3.4-5.0); BUN Creatinine Ratio 31.6 (10-20); Calcium 8.7 mg/dl (8.5-10.1); Creatinine Clr Calc Pharmacy 55.4 ml/min; Est GFR (African American) 75.9; Est GFR (Non-African American) 65.5; Magnesium 2.3 mg/dl (1.8-2.4); Potassium 4.2 mmol/L (3.5-5.1)
[2019-02-27] MEDS ORDERED: PHARMACY GLYCEMIC MGMT CONSULT PRN (14:06)
[2019-02-27 14:07] LABS: Hematocrit (blood only) 18.9 % (42-52); Hemoglobin 6.3 g/dL (14.0-18.0); Mean Corpuscular Hemoglobin 29.4 pg (25-34); Mean Corpuscular Hgb Conc 33.3 g/dL (32-36); Mean Corpuscular Volume 88.3 fL (80-100); Mean Platelet Volume 8.7 fL (7.4-10.4); Platelet Count 313 K/uL (130-400); RDW Coefficient of Variation 13.8 % (11.5-14.5); RDW Standard Deviation 44.9 fL (36.4-46.3); Red Blood Count 2.14 M/uL (4.7-6.1); White Blood Count 5.71 K/uL (4.8-10.8)
[2019-02-27 14:08] LABS: Albumin Globulin Ratio 1.1 (0.9-2); Bilirubin,Total 0.2 mg/dl (0.2-1); Ferritin 7.7 ng/ml (8-388); Globulin 2.7 gm/dl (2.5-4.0); Total Protein 5.6 gm/dl (6.4-8.2)
[2019-02-27 14:15] LABS: Vitamin B12 633 pg/ml (211-911)
[2019-02-27 14:16] LABS: Folate (Folic Acid) > 24.00 ng/ml (>5.38)
--- NOTE | 2019-02-27 14:35 | Pharmacy Report ---
Glycemic Control Consultation - Date of Service February 27, 2019 - Scope Scope: Glycemic Pharmacist consulted by Breann Hardin on 02/27/19 for glycemic control and to write orders per [facility] inpatient glycemic control protocol - Objective Weight: 76.204 kg Accuchecks BSG (last 24hrs): 02/27/19 13:36 Glucose 246 H Laboratory Data (last 24hrs): 02/27/19 13:36 Potassium 4.2 Carbon Dioxide 23 Anion Gap 6.0 Creatinine 1.11 Est Cr Clr Drug Dosing 55.4 - Recent Pertinent Medications Outpatient Anti-diabetic Regimen: * Lantus 20u QAM + Novolog 10u TIDM * A1c = 8.9 % 02/17/19 - Assessment & Plan Assessment & Plan: ASSESSMENT: * Mr. Neil is a 73yo M type II diabetic. P/w anemia/rectal bleeding. PMHx consistent with HLD, HTN, BPH. His A1C is likely not indicative of his glycemic control as it appears he is chronically anemic. D/w him his outpt regimen and corroborated the following: Lantus 20u QAM (he received dose today) + Novolog 10u TIDM (he received his dose with breakfast). He is ordered clears today and will be NPO at midnight PLAN FOR INPATIENT GLYCEMIC CONTROL: * Basal insulin * Lantus no further insulin to be ordered as he will be NPO at 0000 * Bolus insulin * NovoLog per scale ACHS or Q6hrs while NPO * Goal Range: Low 110 mg/dL - High 140 mg/dL * Correction Factor: 30 mg/dL/unit * Nutritional / Prandial insulin per carb ratio of 1 unit per 10 grams CHO consumed * will add overnight checks to help ensure euglycemia * Please note that the plan above was derived based on current level of insulin resistance and hospital stress. These recommendations are appropriate for inpatient admission only. Plan of care upon discharge will need to be reassessed to avoid potential outpatient hypo/hyperglycemia. Thank you.
--- NOTE | 2019-02-27 14:57 | History & Physical Report ---
Date of Service February 27, 2019 Assessment & Plan (1) Anemia: (2) Rectal bleeding: This is a 73-year-old male who has significant PMH of HTN, HLD, T2DM, BPH who presents to [facility] as direct admission from Dr. Kelly office secondary to low hemoglobin. Pt H/H 6.3 and 18.9. He has normocytic normochromic. Anemia work-up reveals iron 11, ferritin 7.7, TIBC 340, LFT WNL, B12 and folate normal Renal function mildly elevated 35 and 1.1 Patient admitted to telemetry GI consulted Transfuse 2 units PRBC PPI bolus and drip Clear liquid diet today, n.p.o. after midnight Placed on IV fluid after midnight Plan for EGD/small bowel enteroscopy and colonoscopy tomorrow per GI Repeat H&H after transfusion and in a.m. Initiate iron supplementation post scope tomorrow (3) Acute renal insufficiency: baseline cr 0.9-1.0 bun/cr 35 and 1.11 likely in setting of GIB/hypovolemia and anemia transfuse 2 units prbc give IVF after midnight due to npo repeat bmp in a.m. (4) Diabetes mellitus type II, uncontrolled: a1c 8.9 02/17/19 consult glycemic pharmacist - appreciate their input pt with poorly controlled diabetes and decreased oral intake (5) HTN (hypertension): Blood pressure stable Hold lisinopril secondary to hypovolemia Monitor (6) HLD (hyperlipidemia): continue statin (7) DVT prophylaxis: SCD/TEDS Disposition: admit to tele; discharge to home when able Follow up: PCP Dr. Kelly upon discharge Pt was seen and examined in collaboration with Dr. Collado please see addendum History of Present Illness Chief Complaint: Directly admitted by PCP secondary to low hemoglobin. Primary Care Provider: Moo Kelly MD This is a 73-year-old male who has significant PMH of HTN, HLD, T2DM, BPH who presents to [facility] as direct admission from Dr. Kelly office secondary to low hemoglobin. Of significance patient had 2 hospitalizations this month secondary to rectal bleeding. Initial confinement was 12 to 12 secondary to bright red blood per rectum. Initially felt to be diverticular bleeding versus schema colitis. Recommended colonoscopy as outpatient in 4 to 6 weeks. He did have mesenteric Doppler to rule out ischemia, vascular surgery was consulted. 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 At that time hemoglobin was 12. He represented to ED on 02/16 secondary to syncope and again bright red blood per rectum. He underwent colonoscopy which revealed a single polyp which was removed by cold snare 25 cm above the rectum, sigmoid diverticulosis but no apparent source of bleeding. During this admission he did require 2 units PRBC. Patient was seen in outpatient setting by Dr. Kelly on 02/24/2019 for hospital f/u. Had BM on 02/24 requiring strain and had mild BRBPR at that time Repeat H/H 02/24 showed H&H 7.4 and 22.9. He had repeat H&H today which revealed H&H of 6.5 and 20.4. He was referred to ED secondary to hemoglobin less than 7 and further GI work- up. He does complain of lightheadedness with prolonged standing and walking, bowel movement today x 2 dark in nature with bloody ring around it. Denies f/c/s, syncope, chest pain, sob, palpitations, hemoptysis, n/v, abdominal pain, dysuria, increased urgency or frequency with urination, hematuria. Appetite has otherwise been okay. He has stopped taking his aspirin at home secondary to bright red blood. He also has been taking daily laxative for several months. Allergies Allergy/AdvReac Type Severity Reaction Status Date / Time No Known Allergies Allergy Unverified 02/16/19 19:59 Home Medications Home Medications Medication Instructions Recorded Confirmed Type Lantus Solostar U-100 Insulin 20 unit SUBCUT QAM 02/08/19 02/27/19 History Novolog Flexpen U-100 Insulin 10 unit SUBCUT TID 02/08/19 02/27/19 History atorvastatin [Lipitor] 40 mg PO DAILY 02/08/19 02/27/19 History docusate sodium 100 mg PO DAILY 02/08/19 02/27/19 History lisinopril 20 mg PO DAILY 02/08/19 02/27/19 History pantoprazole 40 mg PO QAM 30 Days #30 tab 02/11/19 02/27/19 Rx acetaminophen [Tylenol Extra 500 mg PO Q6H PRN 02/16/19 02/27/19 History Strength] aspirin [Aspir-81] 81 mg PO DAILY #0 tab 02/20/19 02/27/19 Rx pantoprazole 40 mg PO DAILY #30 tab 02/20/19 02/27/19 Rx Past Med/Surg History Medical History BPH (benign prostatic hypertrophy) with urinary retention (Chronic) "Present occultly for a while" Diabetes mellitus type II, uncontrolled (Chronic) Hernia HLD (hyperlipidemia) (Chronic) HTN (hypertension) (Chronic) Surgical History History of ankle surgery History of hernia repair History of prostate surgery Family History Other Diabetes Social History Preferred Language: Mongolian Communication Ability: Effective Infrastructure Developer Required: No Beliefs That Will Affect Care: None marital status: Current Living Situation: Spouse current occupational status: employed 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 [employer] Other Information That Helps Us Care for You: No Feels Safe at Home: Yes Safety Concerns: Feels Safe At This Time Smoking Status: Never smoker Hx Alcohol Use: Yes Hx Substance Use: No Review of Systems Review of Systems: All systems reviewed & are unremarkable except as noted in HPI & below Physical Exam Physical Exam: Constitutional: WD/WN, pale, male, lying in bed, vitals as above, NAD, pleasant, conversing easily Head: Normocephalic, Atraumatic Eyes: PERRL, conjunctivae normal, anicteric sclerae ENMT: external ear and nose normal, oropharynx normal poor dentition Neck: trachea midline, no thyromegaly normal visual inspection Respiratory: normal respiratory effort, lungs clear to auscultation, no wheeze, rales, rhonchi. Normal insp/exp effort, no accessory muscle use Cardiovascular: RRR, no murmur, no edema Vessels: no JVD or carotid bruit Chest: normal inspection of chest Abdomen: normal bowel sounds, soft, nontender, no hepatosplenomegaly Musculoskeletal: no cyanosis or clubbing, extremities motor strength 5/5 Skin: no rashes, warm and dry normal turgor Neurologic: PERRL, EOMI, accommodation nl, no face palsy, no dysarthria CN's II-XI intact bilaterally and moves all extremities Psychiatric: A+Ox3, euthymic affect Lymphatic: no cervical or axillary lymphadenopathy : deferred Results & Data Vital Signs (Past 12 Hours) Vital Signs Temp Pulse Resp BP Pulse Ox 02/27/19 13:27 36.9 C 84 16 118/63 97 Laboratory Results Short CBC 02/27/19 02/27/19 Range/Units 13:36 13:36 WBC 5.71 (4.8-10.8) K/uL Hgb 6.3 L* (14.0-18.0) g/dL Hct 18.9 L* (42-52) % Plt Count 313 (130-400) K/uL Creatinine 1.11 (0.6-1.4) mg/dl BMP 02/27/19 13:36 Sodium 137 Potassium 4.2 Chloride 109 H Carbon Dioxide 23 BUN 35 H Creatinine 1.11 Glucose 246 H Calcium 8.7 Liver Function 02/27/19 Range/Units 13:36 Total Bilirubin 0.2 (0.2-1) mg/dl AST 8 L (15-37) U/L ALT 15 (12-78) U/L Alkaline Phosphatase 92 (45-117) U/L Albumin 2.9 L (3.4-5.0) gm/dl Code Status & VTE Plan Code Status Full Code VTE Prophylaxis Plan VTE Prophylaxis will be ordered: Yes Reason for no VTE drug order: Contraindicated Supervising Physician Co-Signing Physician Notes I have seen and examined patient on admission (02/27/2019), and coordinated care with Breann Hardin PA-C. Patient is a 73-year-old male, well-known to our service, as this is his third admission for GI bleed. Patient presents with hemoglobin of 6.5, and maroon-colored stools. Last time patient was admitted here, he underwent colonoscopy with GI. At this time he says that he actually feels fairly well, denies any abdominal pain or nausea. He feels however weak and lightheaded. Patient's is at the bedside. On physical exam, patient is lying in bed, in no acute distress, lungs are clear to auscultation bilaterally, without any wheezing rhonchi or crackles. Heart rate is regular no murmurs noted. Abdomen is soft, nontender, nondistended. Patient moves all 4 extremities spontaneously, there is no sensory loss noted. No lower extremity edema. No rashes or lesions. Patient will be started on IV PPI, transfuse 2 units of PRBCs, GI was consulted, plan for endoscopy and colonoscopy tomorrow morning. (1) Anemia Anemia type: unspecified type Qualified Code(s): D64.9 - Anemia, unspecified
[2019-02-27] MEDS: INSULIN ASPART 100 UNITS/ML 3 ML PEN SC SCH ×4 (15:30→20:19)
[2019-02-27] MEDS ORDERED: PHARMACY GLYCEMIC MGMT CONSULT STA (16:53)
[2019-02-27] MEDS: PANTOprazole 40 MG in DEXTROSE 5% 100 ML IV SCH ×2 (16:59→20:18)
[2019-02-27] MEDS ORDERED: LAVAGE SOLUTION 4000ML PO SCH (17:00)
[2019-02-27] MEDS ORDERED: INSULIN HUMAN REGULAR IV BOLUS 5 UNITS in SYRINGE 0 ML IV ONE (17:15)
[2019-02-27 23:36] LABS: Hematocrit (blood only) 24.7 % (42-52); Hemoglobin 8.5 g/dL (14.0-18.0)
[2019-02-28] MEDS ORDERED: SODIUM CHLORIDE 0.9% 1000ML 1,000 ML IV SCH
[2019-02-28] MEDS: PANTOprazole 40 MG in DEXTROSE 5% 100 ML IV SCH ×3 (00:03→12:44)
[2019-02-28] MEDS: INSULIN ASPART 100 UNITS/ML 3 ML PEN SC SCH ×4 (00:16→12:00)
[2019-02-28 06:06] LABS: Hematocrit (blood only) 23.2 % (42-52); Hemoglobin 7.9 g/dL (14.0-18.0); Mean Corpuscular Hgb Conc 34.1 g/dL (32-36); Mean Corpuscular Volume 85.3 fL (80-100); Mean Platelet Volume 9.2 fL (7.4-10.4); Platelet Count 269 K/uL (130-400); RDW Coefficient of Variation 14.6 % (11.5-14.5); RDW Standard Deviation 45.9 fL (36.4-46.3); Red Blood Count 2.72 M/uL (4.7-6.1); White Blood Count 5.79 K/uL (4.8-10.8)
[2019-02-28 06:45] LABS: BUN Creatinine Ratio 19.5 (10-20); Calcium 8.3 mg/dl (8.5-10.1); Creatinine Clr Calc Pharmacy 61.5 ml/min; Est GFR (African American) 86.2; Est GFR (Non-African American) 74.3; Potassium 3.9 mmol/L (3.5-5.1)
--- NOTE | 2019-02-28 08:49 | History & Physical Bridge Note ---
Date of Service February 28, 2019 History & Physical Bridge Note I have examined the patient, reviewed the History & Physical and in the interval since the performance of the History & Physical I have noted the following changes of clinical significance: no changes noted
[2019-02-28] MEDS ORDERED: INSULIN GLARGINE SOLOSTAR 100 UNITS/ML 3 ML PEN SC ONE (09:00)
[2019-02-28] MEDS ORDERED: ATORVASTATIN 40 MG TAB PO SCH (09:00)
[2019-02-28] MEDS ORDERED: DOCUSATE SODIUM 100 MG CAP PO SCH (09:00)
--- NOTE | 2019-02-28 09:07 | Anesthesiology Consultation ---
Date of Service February 28, 2019 Assessment & Plan Chart Review Chart Review: Acceptable Risk for Surgery and Patient NOT seen in Pre Admission Testing Consults Requested none History Surgery Operation Date: 02/28/19 16:00 Proposed Procedures p Colonoscopy EGD with Small Bowel Enteroscopy Dr. Yun - Carlos Yun MD Height/Weight Height: 5 ft 7 in Weight: 74.4 kg Allergies Allergy/AdvReac Type Severity Reaction Status Date / Time No Known Allergies Allergy Unverified 02/16/19 19:59 Medications Home Medications Medication Instructions Recorded Confirmed Last Taken Lantus Solostar U-100 Insulin 20 unit SUBCUT QAM 02/08/19 02/27/19 02/07/19 22:30 Novolog Flexpen U-100 Insulin 10 unit SUBCUT TID 02/08/19 02/27/19 02/08/19 09:30 atorvastatin [Lipitor] 40 mg PO DAILY 02/08/19 02/27/19 02/08/19 09:30 docusate sodium 100 mg PO DAILY 02/08/19 02/27/19 Unknown lisinopril 20 mg PO DAILY 02/08/19 02/27/19 Unknown pantoprazole 40 mg PO QAM 30 Days #30 tab 02/11/19 02/27/19 Unknown acetaminophen [Tylenol Extra 500 mg PO Q6H PRN 02/16/19 02/27/19 Unknown Strength] aspirin [Aspir-81] 81 mg PO DAILY #0 tab 02/20/19 02/27/19 02/08/19 09:00 pantoprazole 40 mg PO DAILY #30 tab 02/20/19 02/27/19 Unknown Active Medications Generic Name Dose Route Start Last Admin Trade Name Freq PRN Reason Stop Dose Admin Atorvastatin Calcium 40 mg 02/28/19 09:00 02/28/19 08:06 Lipitor PO 03/30/19 08:59 40 mg DAILY BETO Administration Docusate Sodium 100 mg 02/28/19 09:00 02/28/19 08:02 Colace PO 03/30/19 08:59 Not Given DAILY BETO Pantoprazole Sodium 40 mg/ 100 mls @ 20 mls/hr 02/27/19 14:15 02/28/19 08:24 Dextrose IV 03/29/19 14:14 0 mls/hr Q5H BETO Infusion Sodium Chloride 1,000 mls @ 80 mls/hr 02/28/19 00:00 02/28/19 08:25 Nss 1000ml IV 02/28/19 12:29 0 mls/hr .[id number] BETO Infusion Insulin Aspart 0 units 02/27/19 15:00 02/28/19 08:06 Novolog Flexpen SC 03/29/19 14:59 1 units ACHS BETO Administration Polyethylene Glycol/Electrolytes 16 dose 02/27/19 17:00 02/27/19 19:06 Golytely PO 03/29/19 16:59 16 dose UD BETO Administration NPO Date Last Intake of Fluids: 02/28/19 Time Last Intake of Fluids: 05:00 Date Last Intake of Solids: 02/27/19 Time Last Intake of Solids: 08:00 Past Medical History Medical History BPH (benign prostatic hypertrophy) with urinary retention (Chronic) "Present occultly for a while" Diabetes mellitus type II, uncontrolled (Chronic) Hernia HLD (hyperlipidemia) (Chronic) HTN (hypertension) (Chronic) Past Family History Family History Other Diabetes Past Surgical History Surgical History History of ankle surgery History of hernia repair History of prostate surgery Social History Smoking Status: Never smoker Hx Alcohol Use: Yes alcohol intake frequency: holidays/special occasions only Hx Substance Use: No Physical Exam Vital Signs Last Vital Signs Temp 36.8 C 02/28/19 08:53 Pulse 80 02/28/19 08:53 Resp 18 02/28/19 08:53 BP 161/75 H 02/28/19 08:53 Pulse Ox 99 02/28/19 08:53 Testing Laboratory Results 02/28/19 05:34 02/28/19 05:34 PT 10.4 Seconds (9.0-12.0) 02/27/19 13:36 INR 1.0 (0.9-1.1) 02/27/19 13:36 APTT 26.5 Seconds (21.0-31.0) 02/27/19 13:36 Blood Type O Positive 02/27/19 13:36 Antibody Screen NEGATIVE 02/27/19 13:36 02/28/19 02/28/19 02/27/19 07:29 04:24 23:59 POC Glucose 147 H 121 H 106 H
[2019-02-28] MEDS ORDERED: PHENYLEPHRINE 100MCG/ML 5ML SYR ONE (10:26)
[2019-02-28] MEDS ORDERED: LIDOCAINE HCL 2% 2 ML VIAL/AMP(20MG/ML) INFIL ONE (10:26)
[2019-02-28] MEDS ORDERED: PROPOFOL IV EMULSION 10 MG/ML 20 ML VIAL IV ONE (10:26)
--- NOTE | 2019-02-28 10:50 | GI REPORT ---
Patient Name: Jah Neil Procedure Date: 02/28/2019 10:20 AM Date of : 1945 Admit Type: Inpatient Age: 73 Gender: Male Attending MD: Carlos Yun MD Procedure: Colonoscopy Providers: Carlos Yun MD Referring MD: Jacek Collado Md Indications: Gastrointestinal occult blood loss Medicines: Propofol per Anesthesia Complications: No immediate complications. Estimated Blood Loss: Estimated blood loss: none. Procedure: Pre-Anesthesia Assessment: - Prior to the procedure, a History and Physical was performed, and patient medications, allergies and sensitivities were reviewed. The patient's tolerance of previous anesthesia was reviewed. - The risks and benefits of the procedure and the sedation options and risks were discussed with the patient. All questions were answered and informed consent was obtained. - Patient identification and proposed procedure were verified prior to the procedure by the physician and the nurse. The procedure was verified in the procedure room. - Pre-procedure physical examination revealed no contraindications to sedation. After I obtained informed consent, the scope was passed under direct vision. Throughout the procedure, the patient's blood pressure, pulse, and oxygen saturations were monitored continuously. The scope was introduced through the anus and advanced to the terminal ileum. The colonoscopy was performed without difficulty. The patient tolerated the procedure well. The quality of the bowel preparation was good. The terminal ileum, ileocecal valve, appendiceal orifice, and rectum were photographed. Findings: The perianal and digital rectal examinations were normal. The terminal ileum appeared normal. Multiple small and large-mouthed diverticula were found in the sigmoid colon. Non-bleeding internal hemorrhoids were found during retroflexion. The hemorrhoids were small. Impression: - The examined portion of the ileum was normal. - Diverticulosis in the sigmoid colon. - Non-bleeding internal hemorrhoids. - No specimens collected. Recommendation: - [facility] patient [facility]. - To visualize the small bowel, perform video capsule endoscopy as OP. Carlos uYn MD 02/28/2019 10:50:25 AM This report has been signed electronically. Note Initiated On: 02/28/2019 10:20 AM Number of Addenda: 0 I attest to the content of the Intraoperative Record and orders documented therein, exceptions below {[id number]}
--- NOTE | 2019-02-28 11:12 | GI REPORT ---
Patient Name: Jah Neil Procedure Date: 02/28/2019 10:11 AM Date of : 1945 Admit Type: Inpatient Age: 73 Gender: Male Attending MD: Carlos Yun MD Procedure: Upper GI endoscopy and Small bowel enteroscopy Providers: Carlos Yun MD Referring MD: Jacek Collado Md Indications: Obscure gastrointestinal bleeding Medicines: Propofol per Anesthesia Complications: No immediate complications. Estimated Blood Loss: Estimated blood loss: none. Procedure: Pre-Anesthesia Assessment: - Prior to the procedure, a History and Physical was performed, and patient medications, allergies and sensitivities were reviewed. The patient's tolerance of previous anesthesia was reviewed. - The risks and benefits of the procedure and the sedation options and risks were discussed with the patient. All questions were answered and informed consent was obtained. - Patient identification and proposed procedure were verified prior to the procedure by the physician and the nurse. The procedure was verified in the procedure room. - Pre-procedure physical examination revealed no contraindications to sedation. After obtaining informed consent, the endoscope was passed under direct vision. Throughout the procedure, the patient's blood pressure, pulse, and oxygen saturations were monitored continuously. The scope was introduced through the mouth, and advanced to the mid-jejunum. The small bowel enteroscopy was accomplished without difficulty. The patient tolerated the procedure well. After obtaining informed consent, the endoscope was passed under direct vision. Throughout the procedure, the patient's blood pressure, pulse, and oxygen saturations were monitored continuously. Findings: The Z-line was found 35 cm from the incisors. A medium-sized paraesophageal hernia was found. The entire examined stomach was normal. There was no evidence of significant pathology in the entire examined duodenum. There was no evidence of significant pathology in the entire examined portion of jejunum. Impression: - Z-line, 35 cm from the incisors. - Medium-sized paraesophageal hernia. - Normal stomach. - Normal examined duodenum. - The examined portion of the jejunum was normal. - No specimens collected. Recommendation: - Perform a colonoscopy today. Carlos Ynu MD 02/28/2019 11:12:41 AM This report has been signed electronically. Note Initiated On: 02/28/2019 10:11 AM Number of Addenda: 0 I attest to the content of the Intraoperative Record and orders documented therein, exceptions below {[id number]}
--- NOTE | 2019-02-28 11:26 | Pharmacy Report ---
Pharmacy Glycemic Short Note 2 - Date of Service February 28, 2019 - Glycemic Short BSG Results (Last 24 hours): 02/27/19 02/27/19 02/27/19 13:36 15:00 16:40 Glucose 246 H POC Glucose 275 H 416 H* 02/27/19 02/27/19 02/27/19 16:42 16:44 18:48 Glucose POC Glucose 407 H* 412 H* 328 H* 02/27/19 02/27/19 02/27/19 18:50 20:03 23:59 Glucose POC Glucose 338 H* 146 H 106 H 02/28/19 02/28/19 02/28/19 04:24 05:34 07:29 Glucose 116 H POC Glucose 121 H 147 H OUTPATIENT ANTIDIABETIC REGIMEN: * Lantus 20 units SQ QAM * Novolog 10 units TID with meals ASSESSMENT: * Patient received total 64 units of insulin yesterday: 20 units basal (Lantus taken MATH SPECIALIST); 39 units bolus (of which 10 units of Novolog taken MATH SPECIALIST); 5 units IV Regular insulin when BSG severo above 400 yesterday evening. * Patient was on a clear liquid diet yesterday but this was changed to NPO at midnight for EGD and Colonoscopy this morning. * Fasting BSG at goal today. Since patient was NPO, Lantus was reduced by 25% this AM. * Novolog CF was loosened as well for NPO status. Diet ordered at lunch. Novolog CF tightened slightly. PLAN FOR INPATIENT GLYCEMIC CONTROL: * Basal insulin * Lantus 15 units SQ this AM * Lantus 15 OR 20 units ordered for tomorrow AM based on scale. * Bolus insulin: loosened * NovoLog per scale ACHS or Q6hrs while NPO * Goal Range: Low 110 mg/dL - High 140 mg/dL * Correction Factor: 25 mg/dL/unit * Nutritional / Prandial insulin per carb ratio of 1 unit per 7 grams CHO consumed PLAN FOR DISCHARGE: * TBD
[2019-02-28] MEDS ORDERED: FERROUS SULFATE 325 MG TAB PO SCH (12:00)
--- NOTE | 2019-02-28 12:22 | Progress Note ---
Date of Service February 28, 2019 Subjective EGD/ push enteroscopy and colonoscopy unrevealing for any source of bleeding. Recommend VCE as OP and Iron therapy, if he presents to the hospital again with similar obscure bleeding then should have a bleeding scan in the ED. Recall if needed. Results & Data Vital Signs (Past 12 Hours) Vital Signs Temp Pulse Resp BP BP Pulse Ox 02/28/19 11:50 36.3 C L 64 18 112/56 L 97 02/28/19 11:32 36.4 C L 78 16 125/66 95 02/28/19 11:11 71 18 113/53 L 95 02/28/19 10:56 76 18 105/56 L 97 02/28/19 10:41 79 16 108/48 L 98 02/28/19 08:53 36.8 C 80 18 161/75 H 99 02/28/19 06:48 36.6 C 82 18 122/65 95 02/28/19 03:21 36.7 C 85 18 127/68 94
--- NOTE | 2019-02-28 12:44 | Anesthesiology Progress Note ---
Date of Service February 28, 2019 Anesthesia Post Procedure Vital Signs Vital Signs: Temp Pulse Pulse Resp BP BP BP 02/28/19 11:50 36.3 C L 64 18 112/56 L 02/28/19 11:32 36.4 C L 78 16 125/66 02/28/19 11:11 71 18 113/53 L 02/28/19 10:56 76 18 105/56 L 02/28/19 10:41 79 16 108/48 L 02/28/19 08:53 36.8 C 80 18 161/75 H 02/28/19 08:00 69 02/28/19 06:48 36.6 C 82 18 122/65 02/28/19 03:21 36.7 C 85 18 127/68 02/27/19 22:53 85 02/27/19 22:48 36.6 C 90 20 109/61 02/27/19 20:32 36.4 C L 74 20 108/64 02/27/19 19:07 36.4 C L 83 20 135/63 02/27/19 18:42 36.6 C 79 20 131/64 02/27/19 18:37 36.6 C 79 20 131/64 02/27/19 18:22 36.5 C 74 20 117/63 02/27/19 18:04 36.4 C L 74 20 135/61 02/27/19 17:30 37.8 C H 89 20 120/58 L 02/27/19 16:30 92 H 18 112/56 L 02/27/19 16:09 86 02/27/19 16:00 36.9 C 83 20 109/64 02/27/19 15:30 36.9 C 84 20 108/63 02/27/19 15:15 36.8 C 82 20 122/62 02/27/19 14:55 36.8 C 97 H 20 148/67 H 02/27/19 13:27 36.9 C 84 16 118/63 Pulse Ox 02/28/19 11:50 97 02/28/19 11:32 95 02/28/19 11:11 95 02/28/19 10:56 97 02/28/19 10:41 98 02/28/19 08:53 99 02/28/19 08:00 02/28/19 06:48 95 02/28/19 03:21 94 02/27/19 22:53 02/27/19 22:48 97 02/27/19 20:32 98 02/27/19 19:07 98 02/27/19 18:42 98 02/27/19 18:37 98 02/27/19 18:22 98 02/27/19 18:04 96 02/27/19 17:30 99 02/27/19 16:30 97 02/27/19 16:09 02/27/19 16:00 97 02/27/19 15:30 99 02/27/19 15:15 98 02/27/19 14:55 97 02/27/19 13:27 97 Transfer of Care Handoff Completed per policy Notes Mental Status: alert / awake / arousable Patient Amnestic to Procedure: Yes Nausea / Vomiting: adequately controlled Pain: adequately controlled Airway Patency, RR, SpO2: stable & adequate BP & HR: stable & adequate Hydration State: stable & adequate Anesthetic Complications: no major complications apparent and Pt Satisfied with anesthetic care
--- NOTE | 2019-02-28 14:45 | Discharge Summary ---
Date of Service February 28, 2019 Admission HPI Per Admitting Provider This is a 73-year-old male who has significant PMH of HTN, HLD, T2DM, BPH who presents to [facility] as direct admission from Dr. Kelly office secondary to low hemoglobin. Of significance patient had 2 hospitalizations this month secondary to rectal bleeding. Initial confinement was 02/08 to 02/11 secondary to bright red blood per rectum. Initially felt to be diverticular bleeding versus schema colitis. Recommended colonoscopy as outpatient in 4 to 6 weeks. He did have mesenteric Doppler to rule out ischemia, vascular surgery was consulted. 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 At that time hemoglobin was 12. He represented to ED on 02/16 secondary to syncope and again bright red blood per rectum. He underwent colonoscopy which revealed a single polyp which was removed by cold snare 25 cm above the rectum, sigmoid diverticulosis but no apparent source of bleeding. During this admission he did require 2 units PRBC. Patient was seen in outpatient setting by Dr. Kelly on 02/24/2019 for hospital f/u. Had BM on 02/24 requiring strain and had mild BRBPR at that time Repeat H/H 02/24 showed H&H 7.4 and 22.9. He had repeat H&H today which revealed H&H of 6.5 and 20.4. He was referred to ED secondary to hemoglobin less than 7 and further GI work- up. He does complain of lightheadedness with prolonged standing and walking, bowel movement today x 2 dark in nature with bloody ring around it. Denies f/c/s, syncope, chest pain, sob, palpitations, hemoptysis, n/v, abdominal pain, dysuria, increased urgency or frequency with urination, hematuria. Appetite has otherwise been okay. He has stopped taking his aspirin at home secondary to bright red blood. He also has been taking daily laxative for several months. Admission Exam Per Admitting Provider Constitutional: WD/WN, pale, male, lying in bed, vitals as above, NAD, pleasant, conversing easily Head: Normocephalic, Atraumatic Eyes: PERRL, conjunctivae normal, anicteric sclerae ENMT: external ear and nose normal, oropharynx normal poor dentition Neck: trachea midline, no thyromegaly normal visual inspection Respiratory: normal respiratory effort, lungs clear to auscultation, no wheeze, rales, rhonchi. Normal insp/exp effort, no accessory muscle use Cardiovascular: RRR, no murmur, no edema Vessels: no JVD or carotid bruit Chest: normal inspection of chest Abdomen: normal bowel sounds, soft, nontender, no hepatosplenomegaly Musculoskeletal: no cyanosis or clubbing, extremities motor strength 5/5 Skin: no rashes, warm and dry normal turgor Neurologic: PERRL, EOMI, accommodation nl, no face palsy, no dysarthria CN's II-XI intact bilaterally and moves all extremities Psychiatric: A+Ox3, euthymic affect Lymphatic: no cervical or axillary lymphadenopathy : deferred Principal Diagnosis Acute blood loss anemia, secondary to GI bleed (recurrent) Discharge Exam General Appearance: Elderly male sitting up in bed, in NAD Head: normocephalic, atraumatic Eyes: PERRL, EOMI, conjunctivae normal, anicteric sclerae ENT: external ear and nose normal, oropharynx normal Neck: trachea midline, no thyromegaly normal visual inspection Respiratory: normal respiratory effort, lungs clear to auscultation, no wheeze, rales, rhonchi Cardiovascular: RRR no murmur, normal peripheral pulses. Vessels: no JVD or carotid bruit Chest: normal inspection of chest Abdomen/GI: normal bowel sounds, soft, nontender, nondistended, no guarding Extremities/MSK: no cyanosis or clubbing, extremities motor strength 5/5, moves all extremities spontaneously Neurologic: PERRL, EOMI, accommodation nl, no face palsy, no dysarthria CN's II-XI intact bilaterally and moves all extremities Psychiatric: A+Ox3, euthymic affect Skin: warm/dry, no rashes or lesions Discharge Data Allergies Allergy/AdvReac Type Severity Reaction Status Date / Time No Known Allergies Allergy Unverified 02/16/19 19:59 Consultations 02/27/19 13:02 Consult Gastroenterology Routine Procedures Performed Operation Date: 02/28/19 16:00 Actual Procedures p Colonoscopy - Carlos Yun MD s Esophagogastroduodenoscopy - Carlos Yun MD EGD - Impression: - Z-line, 35 cm from the incisors. - Medium-sized paraesophageal hernia. - Normal stomach. - Normal examined duodenum. - The examined portion of the jejunum was normal. - No specimens collected. Colonoscopy - Impression: - The examined portion of the ileum was normal. - Diverticulosis in the sigmoid colon. - Non-bleeding internal hemorrhoids. - No specimens collected. EGD/ push enteroscopy and colonoscopy unrevealing for any source of bleeding. Recommend VCE as OP and Iron therapy, if he presents to the hospital again with similar obscure bleeding then should have a bleeding scan in the ED. Hospital Course (1) Anemia: (2) Rectal bleeding: This is a 73-year-old male who has significant PMH of HTN, HLD, T2DM, BPH who presents to [facility] as direct admission from Dr. Kelly office secondary to low hemoglobin. Pt H/H 6.3 and 18.9. He has normocytic normochromic anemia, work-up reveals iron 11, ferritin 7.7, TIBC 340, LFT WNL, B12 and folate normal Acute blood loss anemia secondary to recurrent GI bleed - s/p transfusion of 2 units od pRBCs on admission - GI consulted, pt underwent EGD/push enteroscopy, colonoscopy - unrevealing - BMs brown/ non-bloody this AM and Hgb stable - plan for VCE as outpatient - also recommend vascular surgery consult as outpatient for SMA stenosis - cont. PPI - start iron supplement - will need outpt follow up for H&H monitoring (3) Diabetes mellitus type II, uncontrolled: Hgb A1c 8.9% 02/17/19 - pt with poorly controlled diabetes and decreased oral intake Glycemic pharmacist consulted for DM management while inpt (4) HTN (hypertension): Blood pressure stable Hold lisinopril secondary to hypovolemia Cont. to monitor (5) HLD (hyperlipidemia): continue statin Total Time Total Time Spent Total Time Spent (In Minutes): 40 Total Time Includes: Examination of the Patient, Discharge Planning, Medication Reconciliation and Communication With Other Providers Discharge Plan Discharge Items Patient Disposition: Home - Self-Care Reason For Visit: ANEMIA Discharge Diagnosis: Acute blood loss anemia, secondary to GI bleed (recurrent) Activity: As commented below Activity Comment: as tolerated, pace yourself, ask for help as needed Non-emergency contact: Primary Care Provider and [employer] Call non-emergency contact if: you have any medication questions and your sympto ms worsen Follow-up/Referrals: Moo Kelly MD [Primary Care Provider] - 03/03/19 10:45 am Diet: Carb Consistent or DM2 and Low Fiber Addtl Attending Provider Instructions: Please follow-up with your primary care provider, Dr. Kelly, on March 03 at 10:45 AM. You will need to have your blood counts rechecked at that time to monitor your anemia. Gastroenterology office will contact you about video capsule endoscopy study. Gastroenterology also recommends that you are evaluated as outpatient with vascular surgery, details of your studies will be available to your primary care doctor. Start taking iron supplement. Pending Studies at Discharge: No Stand-Alone Forms: My [facility] [address], Smoking Cessation Medications and DC Order Prescriptions: New ferrous sulfate 325 mg (65 mg iron) Tablet,Delayed Release (Dr/Ec) 325 mg PO BIDM 30 Days Qty: 60 RF: 0 Continued atorvastatin [Lipitor] 40 mg tablet 40 mg PO DAILY RF: 0 docusate sodium 100 mg Capsule 100 mg PO DAILY RF: 0 Novolog Flexpen U-100 Insulin 100 unit/mL (3 mL) insulin pen 10 unit SUBCUT TID RF: 0 Lantus Solostar U-100 Insulin 100 unit/mL (3 mL) insulin pen 20 unit SUBCUT QAM RF: 0 lisinopril 20 mg Tablet 20 mg PO DAILY RF: 0 pantoprazole 40 mg Tablet,Delayed Release (Dr/Ec) 40 mg PO QAM 30 Days Qty: 30 RF: 0 acetaminophen [Tylenol Extra Strength] 500 mg Tablet 500 mg PO Q6H PRN (Reason: Pain) RF: 0 pantoprazole 40 mg Tablet,Delayed Release (Dr/Ec) 40 mg PO DAILY Qty: 30 RF: 0 aspirin [Aspir-81] 81 mg Tablet,Delayed Release (Dr/Ec) 81 mg PO DAILY Qty: 0 RF: 0 Discharge Orders: Discharge Order (Routine); Ordered 02/28/19 Ordered By: Jacek Collado Admission Data Admit Date/Time: 02/27/19 12:13 Attending Provider: Jacek Collado Admit Provider: Jacek Collado Primary Care Provider: Moo Kelly Other Providers: Guido Manzano Other Interventions: Discharge Summary Assessment (RN) Last Done: 02/28/19 14:52 DC Date/Time DO NOT enter until pt leaves facility: 02/28/19 15:50
[2019-03-01] MEDS ORDERED: INSULIN GLARGINE SOLOSTAR 100 UNITS/ML 3 ML PEN SC SCH (09:00)
== END 2019-02-28 15:50 | disposition home or self-care (01) | DRG 378 ==
LOC: 2N 12:13

== ENCOUNTER 2019-07-11 21:08 | Inpatient (IN) ==
[2019-07-11] MEDS ORDERED: ONDANSETRON INJ 2 MG/ML 2 ML VIAL IV STA (21:32)
[2019-07-11] MEDS ORDERED: MoRPHine SULFATE 4 MG/ML 1 ML CARP\\VIAL IV STA ×2 (21:32→23:32)
[2019-07-11 22:01] LABS: Basophils # (auto) 0.01 K/uL (0-0.2); Basophils % (auto) 0.1 %; Eosinophils # (auto) 0.04 K/uL (0-0.5); Eosinophils % (auto) 0.4 %; Hematocrit (blood only) 45.8 % (42-52); Hemoglobin 15.8 g/dL (14.0-18.0); Immature Granulocytes # (auto) 0.03 K/uL (0.00-0.02); Immature Granulocytes % (auto) 0.3 %; Lymphocytes # (auto) 1.13 K/uL (1.2-3.4); Lymphocytes % (auto) 10.9 %; Mean Corpuscular Hemoglobin 29.6 pg (25-34); Mean Corpuscular Hgb Conc 34.5 g/dL (32-36); Mean Corpuscular Volume 85.9 fL (80-100); Mean Platelet Volume 9.8 fL (7.4-10.4); Monocytes # (auto) 0.44 K/uL (0.11-0.59); Monocytes % (auto) 4.3 %; Neutrophils # (auto) 8.67 K/uL (1.4-6.5); Platelet Count 185 K/uL (130-400); RDW Coefficient of Variation 14.4 % (11.5-14.5); RDW Standard Deviation 44.6 fL (36.4-46.3); Red Blood Count 5.33 M/uL (4.7-6.1); White Blood Count 10.32 K/uL (4.8-10.8)
[2019-07-11 22:07] LABS: iSTAT Hemoglobin 16.3 g/dl (14.0-18.0); iSTAT Ionized Calcium 1.27 mmol/l (1.12-1.32); iSTAT Potassium 4.4 mmol/L (3.3-5.0)
--- NOTE | 2019-07-11 22:09 | Emergency Department Note ---
Impression & Plan Incarcerated inguinal hernia, SBO (small bowel obstruction), Abdominal pain, Hyperglycemia ED Provider Note NAME: HERON SMIHT AGE: 74 SEX: M : 1945 ARRIVES VIA: Walk-In INFORMANT: Patient, ED PROVIDER(S): Srini Tovar MD Chief Complaint: Abdominal pain, hernia check HPI: Patient does present with 4 days of abdominal pain. Patient states initially was intermittent but is now more constant. He describes it as sharp in nature. Patient did try taking Tylenol as well as tramadol earlier today. This only mildly relieved his discomfort. Patient does have a known hernia and noticed that the hernia is no longer reducible. Patient denies any recent trauma. The patient denies nausea vomiting. The patient did have a recent bowel movement that was loose but nonbloody. Patient did eat this evening. Patient states that palpation does make it worse. ROS: See HPI for pertinent positives and negatives. A total of 10 systems were reviewed and otherwise negative. Past medical history: See below Surgical history: See below Social history: See below Physical Exam: GENERAL: NAD, non-toxic. Wearing a mask and glasses. EYE EXAM: Normal conjunctiva. PERRL, no anisocoria and EOM's grossly intact w/o pain. NECK: Supple, no nuchal rigidity, no adenopathy, non-tender. No signs of meningismus. LUNGS: Clear to auscultation. Normal chest wall mechanics. HEART: NSR, no MRG. ABDOMEN: Painful mass in the left suprapubic area, not reducible, no redness, normo-active bowel sounds, no masses, no rebound or guarding. BACK: No CVA TTP. SKIN: No rashes and no bruising. UPPER EXTREMITIES: Upper extremities are grossly normal. LOWER EXTREMITIES: Grossly normal, no edema. NEURO EXAM: A&O x3, cranial nerves II-XII grossly intact, normal speech, moves all 4 extremities on command w/o issue. Differential diagnoses: Appendicitis, testicular torsion, infections, diverticulitis, UTI, obstruction, mesenteric ischemia, aortic pathology, inflammatory bowel disease, renal colic, PUD, pancreatitis, biliary pathology, hernia, volvulus, constipation, as well as other pathologies. Course: Patient was seen and evaluated the bedside. A full history and physical exam was performed. EKG: None Imaging Studies: Radiology results as stated below per my review in the radiologist's interpretation: ABDOMEN AND PELVIS CT WITH IV CONTRAST CT DOSE: 411.30 mGy.cm HISTORY: Left inguinal hernia w/ pain TECHNIQUE: Multiaxial CT images of the abdomen and pelvis were performed following the use of intravenous contrast. A dose lowering technique was utilized adhering to the principles of ALARA. COMPARISON STUDY: Abdomen and pelvis CTA 02/10/2019. FINDINGS: Mild dependent changes seen within the lung bases posteriorly. No pneumoperitoneum. No pneumatosis. No suspicious lytic or blastic osseous lesions. The liver, gallbladder, pancreas, and adrenal glands unremarkable. A few punctate calcified granuloma seen within the spleen. The main portal vein is patent. No retroperitoneal lymphadenopathy. A 1 cm hypodense lesion within the upper pole of the right kidney. This likely represents a cyst. The left kidney enhances normally. No hydronephrosis. Mild bilateral perinephric edema, unchanged. Normal bladder. The prostate gland remains enlarged. A few scattered colonic diverticula. No evidence for diverticulitis. The colon is decompressed. Normal appendix. There is a left inguinal hernia containing fluid and a segment of the mid ileum. The ileum distal to the left inguinal hernia is completely decompressed. The small bowel proximal to the hernia is distended and fluid- filled. Therefore, this is consistent with a small bowel obstruction with the transition point located within the moderate sized left inguinal hernia. IMPRESSION: A left inguinal hernia containing fluid and a short segment of small bowel. This results in the transition point of the small bowel obstruction. Surgical consultation recommended for decompression. ACT 112: Negative or not required by law. Electronically signed by: Michi Jaramillo M.D. 07/11/2019 10:47 PM Dictated: 07/11/192240 Transcribed: 07/11/192240 Cardiac monitoring: An order was placed for continuous cardiac monitoring. The monitor shows a rate of 72 with sinus rhythm. MDM: Patient was seen and evaluated the bedside. The patient did present with concern for incarcerated hernia. Blood work was obtained the patient was given pain medication antiemetics and the patient did undergo CT of the abdomen pelvis. Patient has a normal white count H&H and platelet count. The patient's kidney function is unremarkable. The patient does not have an elevated blood glucose but the patient's bicarb and anion gap are virtually normal. The patient's urinalysis does show evidence of glucose but no ketones. Patient CT did show concern for inguinal hernia and associated small bowel obstruction. I did speak the on-call general surgeon who agreed to evaluate the patient. The patient was subsequently admitted to the medicine service. I did speak with Dr. Evin Fish hospitalist. Past Med/Surg History Medical History BPH (benign prostatic hypertrophy) with urinary retention (Chronic) "Present occultly for a while" Diabetes mellitus type II, uncontrolled (Chronic) Hernia HLD (hyperlipidemia) (Chronic) HTN (hypertension) (Chronic) Surgical History History of ankle surgery History of hernia repair History of prostate surgery Family History Other Diabetes Social History Preferred Language: Kittitian Communication Ability: Effective Automatic Stacker Required: No Beliefs That Will Affect Care: None marital status: Current Living Situation: Spouse current occupational status: employed 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 Feels Safe at Home: Yes Smoking Status: Never smoker Hx Alcohol Use: Yes Hx Substance Use: No Allergies Allergies Allergy/AdvReac Type Severity Reaction Status Date / Time No Known Allergies Allergy Unverified 07/11/19 22:41 Home Meds Home Medications Medication Instructions Recorded Confirmed Lantus Solostar U-100 Insulin 20 unit SUBCUT QAM 02/08/19 07/11/19 atorvastatin [Lipitor] 40 mg PO DAILY 02/08/19 07/11/19 insulin aspart U-100 [Novolog 0 unit SUBCUT TIDM 02/08/19 07/11/19 Flexpen U-100 Insulin] lisinopril 20 mg PO DAILY 02/08/19 07/11/19 acetaminophen [Tylenol Extra 500 mg PO Q6H PRN 02/16/19 07/11/19 Strength] ascorbic acid (vitamin C) [Vitamin 250 mg PO DAILY 07/11/19 07/11/19 C] multivitamin 1 tab PO DAILY 07/11/19 07/11/19 Results & Data (ED) Vital Signs Vital Signs - 24 hr 07/11/19 21:09 07/11/19 22:39 07/11/19 23:01 Temperature 36.8 C Temperature Source Oral Pulse Rate 82 75 72 Pulse Rate from SpO2 Sensor 76 71 Respiratory Rate 20 20 20 Respiratory Effort / Characteristics Non-Labored Spontaneous Respiratory Depth Normal Respiratory Pattern Regular Blood Pressure 105/79 177/82 H 165/75 H Blood Pressure Mean 87 117 110 Blood Pressure Position Sitting Pulse Oximetry 94 95 95 Oxygen Delivery Method Room Air Room Air Room Air Sepsis Recent Fever Within 48 Hours No Sepsis Action Taken by Nursing No Action Required 07/11/19 23:21 Temperature Temperature Source Pulse Rate Pulse Rate from SpO2 Sensor Respiratory Rate Respiratory Effort / Characteristics Respiratory Depth Respiratory Pattern Blood Pressure Blood Pressure Mean Blood Pressure Position Pulse Oximetry 95 Oxygen Delivery Method Room Air Sepsis Recent Fever Within 48 Hours Sepsis Action Taken by Snf Medications Current Medication List: was personally reviewed by me Laboratory Data Attestation: I reviewed the patient's lab results. Result diagrams: 07/11/19 21:45 07/11/19 21:45 Lab Results 07/11/19 07/11/19 07/11/19 Range/Units 21:45 21:45 21:55 WBC 10.32 (4.8-10.8) K/uL RBC 5.33 (4.7-6.1) M/uL Hgb 15.8 (14.0-18.0) g/dL POC Hgb 16.3 (14.0-18.0) g/dl Hct 45.8 (42-52) % POC Hct 48 (42-52) % MCV 85.9 (80-100) fL MCH 29.6 (25-34) pg MCHC 34.5 (32-36) g/dL RDW Std Deviation 44.6 (36.4-46.3) fL RDW Coeff of Radha 14.4 (11.5-14.5) % Plt Count 185 (130-400) K/uL MPV 9.8 (7.4-10.4) fL Immature Gran % (Auto) 0.3 % Neut % (Auto) 84.0 % Lymph % (Auto) 10.9 % [place] % (Auto) 4.3 % Eos % (Auto) 0.4 % Baso % (Auto) 0.1 % Immature Gran # (Auto) 0.03 H (0.00-0.02) K/uL Neut # (Auto) 8.67 H (1.4-6.5) K/uL Lymph # (Auto) 1.13 L (1.2-3.4) K/uL [place] # (Auto) 0.44 (0.11-0.59) K/uL Eos # (Auto) 0.04 (0-0.5) K/uL Baso # (Auto) 0.01 (0-0.2) K/uL POC Sodium 135 (135-144) mmol/L Sodium 135 L (136-145) mmol/L POC Potassium 4.4 (3.3-5.0) mmol/L Potassium 4.5 (3.5-5.1) mmol/L POC Chloride 102 (101-112) mmol/L Chloride 104 (98-107) mmol/L Carbon Dioxide 22 (21-32) mmol/L POC Total CO2 21 L (24-31) mEq/l Anion Gap 9.0 (3-11) POC Anion Gap 16.0 (16-25) mmol/L POC BUN 27 H (7-18) mg/dl BUN 30 H (7-18) mg/dl Creatinine 1.23 (0.6-1.4) mg/dl POC Creatinine 1.0 (0.6-1.3) mg/dl Est Cr Clr Drug Dosing 47.5 ml/min Est GFR ( Amer) 66.6 Est GFR (Non-Af Amer) 57.5 BUN/Creatinine Ratio 24.2 H (10-20) Glucose 399 H* (70-99) mg/dl POC Glucose (other) 394 H* (70-99) mg/dl Calcium 9.4 (8.5-10.1) mg/dl POC Ioniz Calcium Chelsi 1.27 (1.12-1.32) mmol/l Total Bilirubin 0.4 (0.2-1) mg/dl AST 13 L (15-37) U/L ALT 36 (12-78) U/L Alkaline Phosphatase 145 H (45-117) U/L Total Protein 7.3 (6.4-8.2) gm/dl Albumin 3.8 (3.4-5.0) gm/dl Globulin 3.5 (2.5-4.0) gm/dl Albumin/Globulin Ratio 1.1 (0.9-2) Lipase 58 L (73-393) U/L Beta-Hydroxybutyric Acd 2.09 (0.2-2.81) mg/dl Urine Color Urine Appearance (Clear) Urine pH (4.5-7.5) Ur Specific [place] (1.000-1.030) Urine Protein (Negative) Urine Glucose (UA) (Negative) Urine Ketones (Negative) Urine Blood (Negative) Urine Nitrite (Negative) Urine Bilirubin (Negative) Urine Urobilinogen (Negative) Ur Leukocyte Esterase (Negative) Urine WBC (Auto) (0-5) /hpf Urine RBC (Auto) (0-4) /hpf U Hyaline Cast (Auto) (0-5) /lpf U Epithel Cells (Auto) (0-5) /lpf Urine Bacteria (Auto) (Negative) 07/11/19 Range/Units 22:36 WBC (4.8-10.8) K/uL RBC (4.7-6.1) M/uL Hgb (14.0-18.0) g/dL POC Hgb (14.0-18.0) g/dl Hct (42-52) % POC Hct (42-52) % MCV (80-100) fL MCH (25-34) pg MCHC (32-36) g/dL RDW Std Deviation (36.4-46.3) fL RDW Coeff of Radha (11.5-14.5) % Plt Count (130-400) K/uL MPV (7.4-10.4) fL Immature Gran % (Auto) % Neut % (Auto) % Lymph % (Auto) % [place] % (Auto) % Eos % (Auto) % Baso % (Auto) % Immature Gran # (Auto) (0.00-0.02) K/uL Neut # (Auto) (1.4-6.5) K/uL Lymph # (Auto) (1.2-3.4) K/uL [place] # (Auto) (0.11-0.59) K/uL Eos # (Auto) (0-0.5) K/uL Baso # (Auto) (0-0.2) K/uL POC Sodium (135-144) mmol/L Sodium (136-145) mmol/L POC Potassium (3.3-5.0) mmol/L Potassium (3.5-5.1) mmol/L POC Chloride (101-112) mmol/L Chloride (98-107) mmol/L Carbon Dioxide (21-32) mmol/L POC Total CO2 (24-31) mEq/l Anion Gap (3-11) POC Anion Gap (16-25) mmol/L POC BUN (7-18) mg/dl BUN (7-18) mg/dl Creatinine (0.6-1.4) mg/dl POC Creatinine (0.6-1.3) mg/dl Est Cr Clr Drug Dosing ml/min Est GFR ( Amer) Est GFR (Non-Af Amer) BUN/Creatinine Ratio (10-20) Glucose (70-99) mg/dl POC Glucose (other) (70-99) mg/dl Calcium (8.5-10.1) mg/dl POC Ioniz Calcium Chelsi (1.12-1.32) mmol/l Total Bilirubin (0.2-1) mg/dl AST (15-37) U/L ALT (12-78) U/L Alkaline Phosphatase (45-117) U/L Total Protein (6.4-8.2) gm/dl Albumin (3.4-5.0) gm/dl Globulin (2.5-4.0) gm/dl Albumin/Globulin Ratio (0.9-2) Lipase (73-393) U/L Beta-Hydroxybutyric Acd (0.2-2.81) mg/dl Urine Color Yellow Urine Appearance Clear (Clear) Urine pH 6.5 (4.5-7.5) Ur Specific [place] > 1.045 H (1.000-1.030) Urine Protein Trace H (Negative) Urine Glucose (UA) 3+ H (Negative) Urine Ketones Negative (Negative) Urine Blood Negative (Negative) Urine Nitrite Negative (Negative) Urine Bilirubin Negative (Negative) Urine Urobilinogen Negative (Negative) Ur Leukocyte Esterase Negative (Negative) Urine WBC (Auto) 1-5 (0-5) /hpf Urine RBC (Auto) 0-4 (0-4) /hpf U Hyaline Cast (Auto) 0 (0-5) /lpf U Epithel Cells (Auto) 0-5 (0-5) /lpf Urine Bacteria (Auto) Negative (Negative) Administered Medications Ioversol (Optiray 320 100ml) 94 ml IV ONCE PRN PRN Reason: Interaction Checking Stop: 07/15/19 22:09 Last Admin: 07/11/19 22:10 Dose: 94 ml Documented by: [id number] Discontinued Medications Sodium Chloride (Nss 1000ml) 500 mls @ 999 mls/hr IV .Q31M ONE Stop: 07/11/19 23:06 Last Infusion: 07/11/19 23:11 Dose: 0 mls/hr Documented by: [id number] Admin: 07/11/19 22:40 Dose: 999 mls/hr Documented by: [id number] Morphine Sulfate (Morphine Sulfate) 4 mg IV NOW STA Stop: 07/11/19 21:33 Last Admin: 07/11/19 22:01 Dose: 4 mg Documented by: [id number] Ondansetron HCl (Zofran) 4 mg IV NOW STA Stop: 07/11/19 21:33 Last Admin: 07/11/19 22:01 Dose: 4 mg Documented by: [id number] Blood Pressure Blood Pressure Findings: Elevated blood pressure Blood Pressure Disposition: elevated BP felt to be situational Discharge Plan Visit Data Chief Complaint: Groin Pain Stated Complaint: hernia ED Provider: Srini Tovar Discharge Problem: Incarcerated inguinal hernia, SBO (small bowel obstruction), Abdominal pain, Hyperglycemia Forms Stand Alone Forms: [employer] Prescriptions Prescriptions: No Action atorvastatin [Lipitor] 40 mg tablet 40 mg PO DAILY RF: 0 insulin aspart U-100 [Novolog Flexpen U-100 Insulin] 100 unit/mL (3 mL) insu sofiya pen 0 unit SUBCUT TIDM RF: 0 Lantus Solostar U-100 Insulin 100 unit/mL (3 mL) insulin pen 20 unit SUBCUT QAM RF: 0 lisinopril 20 mg Tablet 20 mg PO DAILY RF: 0 ascorbic acid (vitamin C) [Vitamin C] 250 mg Tablet 250 mg PO DAILY RF: 0 multivitamin Tablet,Chewable 1 tab PO DAILY RF: 0 acetaminophen [Tylenol Extra Strength] 500 mg Tablet 500 mg PO Q6H PRN (Reason: Pain) RF: 0 Discharge Problem: Abdominal pain Qualifiers: Abdominal location: lower abdomen, unspecified Qualified Code(s): R10.30 - Lower abdominal pain, unspecified
[2019-07-11] MEDS ORDERED: IOVERSOL 100ml IV PRN (22:10)
[2019-07-11] MEDS ORDERED: SODIUM CHLORIDE 0.9% 1000ML 500 ML IV ONE (22:36)
[2019-07-11 22:39] LABS: Albumin Globulin Ratio 1.1 (0.9-2); Albumin Level 3.8 gm/dl (3.4-5.0); BUN Creatinine Ratio 24.2 (10-20); Bilirubin,Total 0.4 mg/dl (0.2-1); Calcium 9.4 mg/dl (8.5-10.1); Creatinine Clr Calc Pharmacy 47.5 ml/min; Est GFR (African American) 66.6; Est GFR (Non-African American) 57.5; Globulin 3.5 gm/dl (2.5-4.0); Potassium 4.5 mmol/L (3.5-5.1); Total Protein 7.3 gm/dl (6.4-8.2)
[2019-07-11 22:47] LABS: Appearance Urine Clear (Clear); Bacteria Urine Automated Negative (Negative); Bilirubin Urine Negative (Negative); Blood Urine Negative (Negative); Cast Urine Automated 0 /lpf (0-5); Color Urine Yellow; Epithelial Cell Urine Auto 0-5 /lpf (0-5); Glucose Urine UA 3+ (Negative); Ketones Urine Negative (Negative); Leukocyte Esterase Urine Negative (Negative); Nitrite Urine Negative (Negative); Protein Urine Trace (Negative); RBC Urine Automated 0-4 /hpf (0-4); Specific Gravity Urine > 1.045 (1.000-1.030); Urobilinogen Urine Negative (Negative); pH Urine 6.5 (4.5-7.5)
--- NOTE | 2019-07-11 22:48 | CT Scan Report ---
ABDOMEN AND PELVIS CT WITH IV CONTRAST CT DOSE: 411.30 mGy.cm HISTORY: Left inguinal hernia w/ pain TECHNIQUE: Multiaxial CT images of the abdomen and pelvis were performed following the use of intrave nous contrast. A dose lowering technique was utilized adhering to the principles of ALARA. COMPARISON STUDY: Abdomen and pelvis CTA 02/10/2019. FINDINGS: Mild dependent changes seen within the lung bases posteriorly. No pneumoperitoneum. No pneu matosis. No suspicious lytic or blastic osseous lesions. The liver, gallbladder, pancreas, and adrena l glands unremarkable. A few punctate calcified granuloma seen within the spleen. The main portal vei n is patent. No retroperitoneal lymphadenopathy. A 1 cm hypodense lesion within the upper pole of the right kidney. This likely represents a cyst. The left kidney enhances normally. No hydronephrosis. M ild bilateral perinephric edema, unchanged. Normal bladder. The prostate gland remains enlarged. A fe w scattered colonic diverticula. No evidence for diverticulitis. The colon is decompressed. Normal ap pendix. There is a left inguinal hernia containing fluid and a segment of the mid ileum. The ileum di stal to the left inguinal hernia is completely decompressed. The small bowel proximal to the hernia i s distended and fluid-filled. Therefore, this is consistent with a small bowel obstruction with the t ransition point located within the moderate sized left inguinal hernia. IMPRESSION: A left inguinal hernia containing fluid and a short segment of small bowel. This results in the trans ition point of the small bowel obstruction. Surgical consultation recommended for decompression. ACT 112: Negative or not required by law. Electronically signed by: Michi Jaramillo M.D. 07/11/2019 10:47 PM
[2019-07-11 22:51] LABS: Beta-Hydroxybutyrate 2.09 mg/dl (0.2-2.81)
--- NOTE | 2019-07-11 23:46 | History & Physical Report ---
Date of Service July 11, 2019 Assessment & Plan (1) Incarcerated inguinal hernia: Incarcerated left inguinal hernia. I was able to reduce this but given likelihood of recurrence/re-incarceration, repair of the is recommended. Will admit to surgical service tonight and plan for repair in the morning. History of Present Illness Primary Care Provider: Moo Kelly MD 74 y/o male with left inguinal hernia for many years usually able to self reduce but has been larger and more painful the past 4 days and not able to reduce. Had more pain today so came to the ED. No nausea or vomiting. Had BM today. Allergies Allergy/AdvReac Type Severity Reaction Status Date / Time No Known Allergies Allergy Unverified 07/11/19 22:41 Home Medications Home Medications Medication Instructions Recorded Confirmed Type Lantus Solostar U-100 Insulin 20 unit SUBCUT QAM 02/08/19 07/11/19 History atorvastatin [Lipitor] 40 mg PO DAILY 02/08/19 07/11/19 History insulin aspart U-100 [Novolog 0 unit SUBCUT TIDM 02/08/19 07/11/19 History Flexpen U-100 Insulin] lisinopril 20 mg PO DAILY 02/08/19 07/11/19 History acetaminophen [Tylenol Extra 500 mg PO Q6H PRN 02/16/19 07/11/19 History Strength] ascorbic acid (vitamin C) [Vitamin 250 mg PO DAILY 07/11/19 07/11/19 History C] multivitamin 1 tab PO DAILY 07/11/19 07/11/19 History Past Med/Surg History Medical History BPH (benign prostatic hypertrophy) with urinary retention (Chronic) "Present occultly for a while" Diabetes mellitus type II, uncontrolled (Chronic) Hernia HLD (hyperlipidemia) (Chronic) HTN (hypertension) (Chronic) Surgical History History of ankle surgery History of hernia repair History of prostate surgery Family History Other Diabetes Social History Preferred Language: Croatian Communication Ability: Effective Nut Packer Required: No Beliefs That Will Affect Care: None marital status: Current Living Situation: Spouse current occupational status: employed 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 Feels Safe at Home: Yes Smoking Status: Never smoker Hx Alcohol Use: Yes Hx Substance Use: No Review of Systems Constitutional: no fever and no chills Respiratory: no cough and no dyspnea Cardiovascular: no chest pain and no chest pain with activity Gastrointestinal: + abdominal pain; no bloating, no nausea and no vomiting Physical Exam Constitutional: WD/WN, vitals as above Respiratory: normal respiratory effort, lungs clear to auscultation Cardiovascular: RRR, no murmur, no edema Gastrointestinal (Abdomen): Inspection/Auscultation: + visible herniation (moderate sized left inguinal hernia); abdomen not distended Percussion/Palpation: abdomen soft Results & Data Results & Data ([facility]) Vital Signs (Past 12 Hours) Vital Signs Temp Pulse Resp BP Pulse Ox 07/11/19 23:21 95 07/11/19 23:01 72 20 165/75 H 95 07/11/19 22:39 75 20 177/82 H 95 07/11/19 21:09 36.8 C 82 20 105/79 94 PG Care Time/CCT Total # of Minutes Spent Total Time Spent with Patient: Total time spent is greater than 50% in coordination of care (as documented) at patient's floor/unit and/or counseling patient: Coding Level of Care Code 85290 Initial Inpt Care Lvl 1 Diagnoses Incarcerated inguinal hernia K40.30
[2019-07-12] MEDS ORDERED: NovoLIN-R INSULIN PER UNIT CHARGE IV STA (01:14)
[2019-07-12] MEDS ORDERED: ONDANSETRON INJ 2 MG/ML 2 ML VIAL IV PRN ×2 (02:27→14:20)
[2019-07-12] MEDS ORDERED: HYDROmorphone INJ 0.5 MG/0.5 ML SYR IV PRN (02:27)
[2019-07-12] MEDS ORDERED: HydrALAZINE HCL 20 MG/ML VIAL IV PRN (02:27)
[2019-07-12] MEDS ORDERED: PIPERACILL/TAZOBAC CONSULT ACTIVE PRN (02:27)
[2019-07-12] MEDS ORDERED: ACETAMINOPHEN 325 MG TAB PO PRN (02:27)
[2019-07-12] MEDS ORDERED: DEXTROSE 50% 50 ML SYRINGE IV PRN (02:45)
[2019-07-12] MEDS ORDERED: PIPERACILLIN/TAZOBACTAM 3.375 GM in DEXTROSE 5% 100 ML IV ONE (02:45)
[2019-07-12] MEDS ORDERED: GLUCAGON FOR INJ 1 MG VIAL IM PRN (02:45)
[2019-07-12] MEDS ORDERED: GLUCOSE 40% GEL 15 GM TUBE PO PRN (02:45)
[2019-07-12] MEDS ORDERED: GLUCOSE 10 TABS/TUBE PO PRN (02:45)
[2019-07-12] MEDS ORDERED: CARBOHYDRATES FOR HYPOGLYCEMIA PO PRN (02:45)
[2019-07-12] MEDS: SODIUM CHLORIDE 0.9% 1000ML 1,000 ML IV SCH ×2 (03:40→11:24)
--- NOTE | 2019-07-12 04:26 | History and Physical Report ---
DATE OF ADMISSION: 07/12/2019 CHIEF COMPLAINT: Left groin pain. HISTORY OF PRESENT ILLNESS: This is a 74-year-old male with past medical history significant for type 2 diabetes, hyperlipidemia, hypertension, chronic vascular disease of intestine, mesenteric artery stenosis, history of benign prostatic hypertrophy, history of anemia in the past, who lives with his family, comes because of left groin pain. The patient says that about 30 years, he underwent hernia surgery, but since then he has on and off pain there. For the last 2 days, the pain was severe and not getting better. Denies nausea, vomiting. Last bowel movement was in the morning. Because of ongoing pain and he came to [facility]. Imaging studies showed possible incarcerated inguinal hernia. Seen by surgery and it was reduced, but the plan is for surgery tomorrow because of chance of recurrence.. Currently resting comfortably and hemodynamically stable. Denies any headache. No dizziness, no blurred visions, no earache. Has some runny nose from his allergies. When he lies down, he has a cough. No shortness of breath, no chest pain. No nausea, no vomiting, no diarrhea, no constipation, no blood in the stools or black stools. No burning micturition. No swelling in the legs, no rash. ALLERGIES: No known drug allergies. PAST MEDICAL HISTORY: As mentioned above. PAST SURGICAL HISTORY: Colonoscopy, cystoscopy, EGDs, injection of the eye, TURP, laparoscopic hernia repair. MEDICATIONS: The patient is on Tylenol 500 mg p.o. q. 6 hours p.r.n., vitamin C 250 mg p.o. daily, Lipitor 40 mg p.o. daily, NovoLog sliding scale 10 units t.i.d., Lantus 20 units in a.m., lisinopril 20 mg p.o. daily, multivitamin 1 tablet daily. FAMILY HISTORY: Significant for father had bladder cancer and lung disorder; mother had stroke, heart disorder, diabetes. SOCIAL HISTORY: . No smoking. Alcohol occasional. No drug use. REVIEW OF SYSTEMS: As per HPI. Rest of review of systems negative. PHYSICAL EXAMINATION: GENERAL: The patient is of moderate build, not in acute distress. VITAL SIGNS: Temperature 36.8, pulse 91, respiratory rate 13, blood pressure 120/75, oxygen 95% on room air. HEENT: No pallor, no icterus. Pupils equal, round, and reactive to light. NECK: No JVD, no neck masses, no carotid bruit. CARDIOVASCULAR: S1, S2 heard, regular rate and rhythm, no murmur, no gallop. RESPIRATORY SYSTEM: Normal AP diameter. No accessory muscle use. No wheezing, no crackles. ABDOMEN: Soft, bowel sounds present. Mild tenderness in the left groin region. No guarding, no rigidity. No distention. CENTRAL NERVOUS SYSTEM: Cranial nerves II-XII grossly intact. Nonfocal. EXTREMITIES: No edema, no erythema. LABORATORY DATA: WBC 10.3, hemoglobin 15.8, hematocrit 45, platelets 185. Sodium 135, potassium 4.5, chloride 104, bicarbonate 22, BUN 30, creatinine 1.2, serum glucose 399, calcium 9.4, total bilirubin 0.4, AST 13, ALT 36, alkaline phosphatase 145. Lipase 58, beta hydroxybutyric acid 2.09. Urinalysis, +3 glucose. IMAGING DATA: CT of abdomen and pelvis shows a left inguinal hernia containing fluid in the short segment of small bowel. This results in the transition point of small-bowel obstruction. Surgical consult has been recommended for decompression ASSESSMENT AND PLAN: This is a 74-year-old male who presents with left groin pain and found to be possibly lye caused by incarcerated left inguinal hernia. 1. Incarcerated inguinal hernia. Seen by surgery and was able to reduce it, but because of question of recurrence, surgery was recommended. The patient will keep n.p.o., IV fluids, IV antibiotics, IV Zosyn. Surgical consult. Monitor on the medical floor.If cxr and ekg ok should be at acceptable risk to proceed with surgery. 2. History of diabetes. Sugars are running high. We will give 1 dose of IV 4 units of regular insulin, cut back his Lantus to 10 units as patient is currently n.p.o. and insulin sliding scale. Closely monitor blood sugars. Follow HbA1c levels. 3. History of gastroesophageal reflux disease, on Protonix. 4. History of hypertension. On lisinopril, which we will hold as the patient will go for possible surgery tomorrow. We placed him on IV hydralazine p.r.n. Restart whenever he will take p.o. 5. Hyperlipidemia, on statin, which we will hold for now. 6. History of benign prostatic hypertrophy. Monitor for any urinary retention. 7. Deep venous thrombosis prophylaxis, sequential compression devices for now. 8. Disposition: Closely monitor in the medical floor. Level 1 full code. MTDD
[2019-07-12] MEDS: INSULIN ASPART 100 UNITS/ML 3 ML PEN SC SCH ×4 (05:53→20:43)
[2019-07-12 07:12] LABS: Basophils # (auto) 0.01 K/uL (0-0.2); Basophils % (auto) 0.1 %; Eosinophils # (auto) 0.04 K/uL (0-0.5); Eosinophils % (auto) 0.5 %; Hematocrit (blood only) 41.2 % (42-52); Hemoglobin 14.2 g/dL (14.0-18.0); Immature Granulocytes # (auto) 0.02 K/uL (0.00-0.02); Immature Granulocytes % (auto) 0.3 %; Lymphocytes # (auto) 1.75 K/uL (1.2-3.4); Lymphocytes % (auto) 22.1 %; Mean Corpuscular Hemoglobin 29.9 pg (25-34); Mean Corpuscular Hgb Conc 34.5 g/dL (32-36); Mean Corpuscular Volume 86.7 fL (80-100); Mean Platelet Volume 9.8 fL (7.4-10.4); Monocytes # (auto) 0.63 K/uL (0.11-0.59); Neutrophils # (auto) 5.47 K/uL (1.4-6.5); Platelet Count 190 K/uL (130-400); RDW Coefficient of Variation 14.3 % (11.5-14.5); Red Blood Count 4.75 M/uL (4.7-6.1); White Blood Count 7.92 K/uL (4.8-10.8)
--- NOTE | 2019-07-12 07:28 | XRay Report ---
XR chest 1V portable CLINICAL HISTORY: 74 years-old Male presenting with pre op. TECHNIQUE: Portable upright AP view of the chest was obtained. COMPARISON: . FINDINGS: Atherosclerosis of the aortic arch. Cardiac silhouette mildly enlarged. Mildly low lung volumes. No f ocal opacity. No large effusion or pneumothorax. Degenerative changes of the thoracic spine. Mild gas eous distention of bowel. IMPRESSION: 1. Mild cardiomegaly. No volume overload or congestive change. 2. Result prior basilar atelectasis. 3. No convincing evidence of acute cardiopulmonary disease. ACT 112: Negative or not required by law. Electronically signed by: Sabino Tellez M.D. 07/12/2019 7:26 AM
[2019-07-12 07:49] LABS: BUN Creatinine Ratio 25.2 (10-20); Calcium 8.4 mg/dl (8.5-10.1); Creatinine Clr Calc Pharmacy 51.3 ml/min; Est GFR (African American) 71.5; Est GFR (Non-African American) 61.7; Magnesium 2.2 mg/dl (1.8-2.4); Potassium 3.9 mmol/L (3.5-5.1)
[2019-07-12] MEDS: PIPERACILLIN/TAZOBACTAM 3.375 GM in DEXTROSE 5% 100 ML IV SCH ×2 (07:58→17:23)
[2019-07-12] MEDS: INSULIN GLARGINE SOLOSTAR 100 UNITS/ML 3 ML PEN SC SCH (07:58)
--- NOTE | 2019-07-12 09:36 | Electrocardiogram Report ---
Test Reason : Blood Pressure : / mmHG Vent. Rate : 080 BPM Atrial Rate : 080 BPM P-R Int : 174 ms QRS Dur : 090 ms QT Int : 366 ms P-R-T Axes : 033 -21 006 degrees QTc Int : 422 ms Normal sinus rhythm with occasional Premature atrial complexes Normal ECG When compared with ECG of 27-FEB-2019 15:00, No significant change was found Confirmed by Marcelino aPrsons ([id number]) on 07/12/2019 9:35:38 AM Referred By: REFERRED SELF Confirmed By:Marcelino Parsons
--- NOTE | 2019-07-12 10:17 | History & Physical Bridge Note ---
Date of Service July 12, 2019 History & Physical Bridge Note I have examined the patient, reviewed the History & Physical and in the interval since the performance of the History & Physical I have noted the following changes of clinical significance: no changes noted pt seen. feeling much better. hernia still reduced. non-tender. we discussed his options. I recommend open repair this admission/today. we discussed the risks ( bleeding/infection/dvt/pe/mi/cva/chronic pain/infection of mesh/injury to other organs/structures etc...questions answered. will proceed with open left inguinal hernia repair with mesh today.
--- NOTE | 2019-07-12 13:27 | Anesthesiology Consultation ---
Date of Service July 12, 2019 Assessment & Plan (1) Encounter for pre-operative examination: Chart Review Chart Review: Acceptable Risk for Surgery Consults Requested none ASA ASA2 Proposed Anesthesia Anesthesia Type: General Risk / Benefits Reviewed With: PT / POA / Parent / Guardian, Accepts Plan and Informed Consent Obtained History Surgery Operation Date: 07/12/19 07:00 Proposed Procedures p Left Incarcerated Inguinal Hernia Repair - Matheus Nieves, DO Height/Weight Height: 5 ft 6.5 in Weight: 74.3 kg Allergies Allergy/AdvReac Type Severity Reaction Status Date / Time No Known Allergies Allergy Unverified 07/11/19 22:41 Medications Home Medications Medication Instructions Recorded Confirmed Last Taken Lantus Solostar U-100 Insulin 20 unit SUBCUT QAM 02/08/19 07/11/19 02/07/19 22:30 atorvastatin [Lipitor] 40 mg PO DAILY 02/08/19 07/11/19 02/08/19 09:30 insulin aspart U-100 [Novolog 0 unit SUBCUT TIDM 02/08/19 07/11/19 02/08/19 09:30 Flexpen U-100 Insulin] lisinopril 20 mg PO DAILY 02/08/19 07/11/19 Unknown acetaminophen [Tylenol Extra 500 mg PO Q6H PRN 02/16/19 07/11/19 Unknown Strength] ascorbic acid (vitamin C) [Vitamin 250 mg PO DAILY 07/11/19 07/11/19 Unknown C] multivitamin 1 tab PO DAILY 07/11/19 07/11/19 Unknown Active Medications Generic Name Dose Route Start Last Admin Trade Name Freq PRN Reason Stop Dose Admin Sodium Chloride 1,000 mls @ 125 mls/hr 07/12/19 02:27 07/12/19 11:24 Nss 1000ml IV 08/11/19 02:26 125 mls/hr .Q8H BETO Administration Piperacillin Sod/Tazobactam 115 mls @ 28.75 mls/hr 07/12/19 08:00 07/12/19 12:26 Sod 3.375 gm/ Dextrose IV 07/22/19 07:59 Infused Q8H BETO Infusion Protocol Insulin Aspart 0 units 07/12/19 06:00 07/12/19 12:39 Novolog Flexpen SC 08/11/19 05:59 1 units Q6 BETO Administration Insulin Glargine 10 units 07/12/19 09:00 07/12/19 07:58 Lantus Solostar Pen SC 08/11/19 08:59 10 units DAILY BETO Administration NPO Date Last Intake of Fluids: 07/12/19 Time Last Intake of Fluids: 19:00 Date Last Intake of Solids: 07/11/19 Time Last Intake of Solids: 19:00 Past Medical History Medical History BPH (benign prostatic hypertrophy) with urinary retention (Chronic) "Present occultly for a while" Diabetes mellitus type II, uncontrolled (Chronic) Hernia HLD (hyperlipidemia) (Chronic) HTN (hypertension) (Chronic) Exercise / Class Metabolic Activity II 4-5 Yardwork/Stairs/Walk up hill Past Family History Family History Other Diabetes Past Surgical History Surgical History History of ankle surgery History of hernia repair History of prostate surgery Past Anesthesia History No Hx of Anesthesia Complications and No Family Hx of Anesthesia Complications History of PONV No Hx of PONV and No Hx of Motion Sickness Social History Smoking Status: Never smoker Hx Alcohol Use: Yes Alcohol type: other alcohol intake frequency: holidays/special occasions only Hx Substance Use: No substance use type: does not use Physical Exam Vital Signs Last Vital Signs Temp 98.4 F 07/12/19 13:56 Pulse 94 H 07/12/19 13:56 Resp 18 07/12/19 13:56 BP 161/96 H 07/12/19 13:56 Pulse Ox 97 07/12/19 13:56 ENMT Mouth: no dentition abnormality Thyromental Distance: > or= 3.5 Finger Breadths Mallampati Class: II Neck normal visual inspection Respiratory normal respiratory effort Auscultation: lungs clear to auscultation bilaterally Cardiovascular Rate/Rhythm: regular rate and regular rhythm Testing Laboratory Results 07/12/19 06:59 07/12/19 06:59 Urine Color Yellow 07/11/19 22:36 Urine Appearance Clear (Clear) 07/11/19 22:36 Urine pH 6.5 (4.5-7.5) 07/11/19 22:36 Ur Specific [place] > 1.045 (1.000-1.030) H 07/11/19 22:36 Urine Protein Trace (Negative) H 07/11/19 22:36 Urine Glucose (UA) 3+ (Negative) H 07/11/19 22:36 Urine Ketones Negative (Negative) 07/11/19 22:36 Urine Nitrite Negative (Negative) 07/11/19 22:36 Ur Leukocyte Esterase Negative (Negative) 07/11/19 22:36 Urine WBC (Auto) 1-5 /hpf (0-5) 07/11/19 22:36 Urine RBC (Auto) 0-4 /hpf (0-4) 07/11/19 22:36 U Hyaline Cast (Auto) 0 /lpf (0-5) 07/11/19 22:36 U Epithel Cells (Auto) 0-5 /lpf (0-5) 07/11/19 22:36 Urine Bacteria (Auto) Negative (Negative) 07/11/19 22:36 07/12/19 07/12/19 12:29 05:48 POC Glucose 170 H 274 H Electrocardiogram Date: 07/12/19 Normal sinus rhythm with occasional Premature atrial complexes, rate 80 bpm Normal ECG When compared with ECG of 27-FEB-2019 15:00, No significant change was found Confirmed by Marcelino Parsons ([id number]) on 07/12/2019 9:35:38 AM Chest X-Ray Date: 07/12/19 IMPRESSION: 1. Mild cardiomegaly. No volume overload or congestive change. 2. Result prior basilar atelectasis. 3. No convincing evidence of acute cardiopulmonary disease.
[2019-07-12] MEDS ORDERED: ONDANSETRON INJ 2 MG/ML 2 ML VIAL ONE (13:35)
[2019-07-12] MEDS ORDERED: PROPOFOL IV EMULSION 10 MG/ML 20 ML VIAL IV ONE (13:35)
[2019-07-12] MEDS ORDERED: MIDAZOLAM HCL 1 MG/ML 2ML VIAL ONE (13:35)
[2019-07-12] MEDS ORDERED: fentaNYL citrate 100 MCG/2 ML VIAL ONE ×2 (13:35→14:55)
[2019-07-12] MEDS ORDERED: LIDOCAINE HCL 2% 2 ML VIAL/AMP(20MG/ML) INFIL ONE (13:35)
[2019-07-12] MEDS ORDERED: ROCURONIUM BROMIDE 10 MG/ML 5 ML VIAL ONE (13:35)
[2019-07-12] MEDS ORDERED: BUPIVACAINE/EPINEPHRINE 0.5% MPF 1:200,000 10 ML VIAL ONE (14:16)
[2019-07-12] MEDS ORDERED: fentaNYL citrate 100 MCG/2 ML VIAL IV PRN (14:20)
[2019-07-12] MEDS ORDERED: ePHEDrine sulfate 50 MG/ML AMP IV PRN (14:20)
[2019-07-12] MEDS ORDERED: ATROPINE SULFATE 0.1 MG/ML 10ML SYR IV PRN (14:20)
--- NOTE | 2019-07-12 15:41 | Operative Report ---
PG Post Operative Report Pre & Post Diagnosis Operation Date: 07/12/19 07:00 Pre-Op Diagnosis: Incarcerated left inguinal hernia. Post-Op Diagnosis: Incarcerated left inguinal hernia. I identified the patient and participated in the time-out.: Yes Procedure Operation Date: 07/12/19 07:00 Actual Procedures p Left Incarcerated Inguinal Hernia Repair with Mesh(Left) ( plug and patch) - Matheus Nieves DO Surgeon Matheus Nieves DO Retail Supervisor arleth Gill Estimated Blood Loss 5 Findings Consistent with Post-Op Diagnosis Specimens none Description of Procedure After informed consent was obtained the patient was taken to the operating room and placed in supine position. After successful placement of the laryngeal mask airway the groin was shaved and sterilely prepped and draped in usual fashion after placing a perera catheter. An inguinal incision was made with a 15 blade scalpel and carried down through the soft tissue using electrocautery. The external oblique aponeurosis was skeletonized. A fresh blade was used to make an incision and then Metzenbaum scissors were used to extend this distally through the external ring as well as for several centimeters proximally. Once in the inguinal canal I used blunt finger dissection to free up the cord and cord structures. I was able to gently tease the cord off of the pubic bone and placed a Ike drain around it. There was no evidence of a direct hernia. We inspected the cord and cord structures using blunt dissection with small amounts of electrocautery. There was an obvious and large indirect hernia with a large chronic sac. We dissected this back to its neck using blunt dissection and small amounts of cautery. Eventually I was able to skeletonize it down to its neck, and then dunked it back into the abdominal cavity. It was able to stay self reduced. We then thoroughly irrigated the wound. Because of the large size I decided to use a plug and patch technique. I placed a polypropylene plug into the large hernia defect and secured it medially to musculature distally to Patel's ligament and laterally to the shelving portion of Poupart's ligament. Next, I used a polypropylene calvo-holed mesh as an onlay. It was secured distally to Patel's ligament, laterally along the shelving portion of Poupart's ligament and medially along the midline musculature. 0 Ethibond was used for the suturing. The "arms" of the mesh were wrapped around behind the cord and cord structures and again secured to underlying muscle. The mesh laid nice and flat and tension-free and did not impinge on the cord structures themselves. We thoroughly irrigated the wound. There was adequate hemostasis. I injected Marcaine around the edges of the mesh for postoperative analgesia. We then closed the external oblique aponeurosis with 2-0 Vicryl in a running fashion. Soft tissue was irrigated and closed in multiple layers using 3-0 Vicryl for the deep layers and 4-0 Monocryl for the skin. Some additional Marcaine was injected around the skin incision. We then used a skin glue as a dressing. The patient was awaken extubated and transferred to recovery in stable condition. My physician's engineering assistant was present throughout the entire procedure. She helped prep the patient. Helped with retraction throughout the case to aid my dissection, assisted with wound closure as well as dressing placement. I attest to the content of the Intraoperative Record and any orders documented therein. Any exceptions are noted below. I attest to the content of the Intraoperative Record and any orders documented therein. Any exceptions are noted below.
--- NOTE | 2019-07-12 16:39 | Hospitalist Progress Note ---
Date of Service July 12, 2019 Assessment & Plan (1) Incarcerated inguinal hernia: Patient is a 74 yr male who presents with left groin pain and found to have incarcerated left inguinal hernia. Left Incarcerated Inguinal Hernia. CT ABD:A left inguinal hernia containing fluid and a short segment of small bowel. This results in the transition point of the small bowel obstruction. Surgical consultation recommended for decompression. Plan for inguinal hernia repair today Appreciate Surgery Input NPO for now Pain Control Monitor CBC Continue Empiric Antibiotics DM II HbA1C:8.9 in Feb 2019 Continue ISS, Lantus Monitor BGs HTN Continue Lisinopril Monitor BP Hyperlipidemia Resume statin as able H/O BPH Monitor for urinary retention Bladder scan PRN DVT Px: SCDs for now Re:Surgery Code Status Full code. Disposition Expect to discharge home when stable Admission and Anticipated Discharge Date Admission Date: July 12, 2019 Subjective Patient is seen and examined at bedside Left groin pain is better Planned for surgery today Denies any chest pain, SOB, dizziness, nausea, abd pain Offers no other complaints Review of Systems Review of Systems: All systems reviewed & are unremarkable except as noted in HPI & below Physical Exam Physical Exam: Physical Exam: Vitals signs as noted above General Appearance:Moderately built and nourished, no apparent distress Head: normocephalic, Atraumatic Eyes: normal inspection, EOMI Neck: supple, Trachea midline Respiratory/Chest: Normal breath sounds, CTA Cardiovascular: S1, S2, No murmur Abdomen/GI:Soft, Non tender, Bowel sounds present, +Left Inguinal hernia Extremities/Musculoskelatal:normal inspection, no edema Neurologic/Psych:AAOX3, grossly no focal neurological deficits Skin: normal color, warm Results & Data Results & Data ([facility]) Vital Signs (Past 12 Hours) Vital Signs Temp Pulse Resp BP Pulse Ox 07/12/19 13:56 36.9 C 94 H 18 161/96 H 97 07/12/19 08:08 36.8 C 75 20 118/64 95 Laboratory Results Short CBC 07/11/19 07/12/19 Range/Units 21:45 06:59 WBC 10.32 7.92 (4.8-10.8) K/uL Hgb 15.8 14.2 (14.0-18.0) g/dL Hct 45.8 41.2 L (42-52) % Plt Count 185 190 (130-400) K/uL BMP 07/11/19 07/12/19 21:45 06:59 Sodium 135 L 137 Potassium 4.5 3.9 Chloride 104 107 Carbon Dioxide 22 22 BUN 30 H 29 H Creatinine 1.23 1.16 Glucose 399 H* 294 H Calcium 9.4 8.4 L Liver Function 07/11/19 Range/Units 21:45 Total Bilirubin 0.4 (0.2-1) mg/dl AST 13 L (15-37) U/L ALT 36 (12-78) U/L Alkaline Phosphatase 145 H (45-117) U/L Albumin 3.8 (3.4-5.0) gm/dl Urine 07/11/19 Range/Units 22:36 Urine Color Yellow Urine Appearance Clear (Clear) Urine pH 6.5 (4.5-7.5) Ur Specific [place] > 1.045 H (1.000-1.030) Urine Protein Trace H (Negative) Urine Glucose (UA) 3+ H (Negative)
--- NOTE | 2019-07-12 16:56 | Anesthesiology Progress Note ---
Date of Service July 12, 2019 Anesthesia Post Procedure Vital Signs Vital Signs: Temp Pulse Pulse Pulse Resp BP BP 07/12/19 16:55 90 17 156/75 H 07/12/19 16:45 36.6 C 91 H 18 161/84 H 07/12/19 16:35 91 H 20 152/69 H 07/12/19 16:25 90 13 156/71 H 07/12/19 16:16 36.6 C 96 H 15 155/98 H 07/12/19 13:56 36.9 C 94 H 18 161/96 H 07/12/19 08:08 36.8 C 75 20 118/64 07/12/19 03:12 76 127/70 07/12/19 02:37 36.9 C 95 H 16 161/73 H 07/12/19 01:30 87 15 132/69 07/12/19 01:00 91 H 13 120/75 07/12/19 00:30 85 17 120/64 07/12/19 00:00 90 14 145/67 H 07/11/19 23:30 79 18 175/81 H 07/11/19 23:21 07/11/19 23:01 72 20 165/75 H 07/11/19 22:39 75 20 177/82 H 07/11/19 21:09 36.8 C 82 20 105/79 Pulse Ox 07/12/19 16:55 94 07/12/19 16:45 94 07/12/19 16:35 96 07/12/19 16:25 99 07/12/19 16:16 100 07/12/19 13:56 97 07/12/19 08:08 95 07/12/19 03:12 07/12/19 02:37 93 07/12/19 01:30 94 07/12/19 01:00 95 07/12/19 00:30 92 07/12/19 00:00 92 07/11/19 23:30 96 07/11/19 23:21 95 07/11/19 23:01 95 07/11/19 22:39 95 07/11/19 21:09 94 Pain Intensity Left Testicles: Pain Intensity: 4 Left Groin: Pain Intensity: 3 Transfer of Care Handoff Completed per policy Notes Mental Status: alert / awake / arousable and participated in evaluation Patient Amnestic to Procedure: Yes Nausea / Vomiting: adequately controlled Pain: adequately controlled Airway Patency, RR, SpO2: stable & adequate BP & HR: stable & adequate Hydration State: stable & adequate Anesthetic Complications: no major complications apparent
[2019-07-12] MEDS ORDERED: HYDROCODONE/ACETAMOPHEN 5/325MG TAB PO PRN (17:08)
[2019-07-12] MEDS ORDERED: MoRPHine SULFATE 4 MG/ML 1 ML CARP\\VIAL IV PRN (17:08)
[2019-07-12] MEDS: LACTATED RINGER'S 1,000 ML IV SCH (17:10)
[2019-07-12] MEDS: MoRPHine SULFATE 2 MG/ML CARP IV PRN ×2 (18:36→23:38)
[2019-07-12] MEDS: HYDROCODONE/ACETAMOPHEN 5/325MG TAB PO PRN (20:23)
[2019-07-12] MEDS ORDERED: Nursing to Pharmacy Communication ONE (20:24)
[2019-07-12] MEDS ORDERED: ATORVASTATIN 40 MG TAB PO SCH (21:00)
[2019-07-13] MEDS: LACTATED RINGER'S 1,000 ML IV SCH (02:46)
[2019-07-13 05:53] LABS: Basophils # (auto) 0.01 K/uL (0-0.2); Basophils % (auto) 0.1 %; Eosinophils # (auto) 0.09 K/uL (0-0.5); Hematocrit (blood only) 39.3 % (42-52); Hemoglobin 13.2 g/dL (14.0-18.0); Immature Granulocytes # (auto) 0.02 K/uL (0.00-0.02); Immature Granulocytes % (auto) 0.2 %; Lymphocytes # (auto) 1.49 K/uL (1.2-3.4); Lymphocytes % (auto) 15.9 %; Mean Corpuscular Hemoglobin 29.4 pg (25-34); Mean Corpuscular Hgb Conc 33.6 g/dL (32-36); Mean Corpuscular Volume 87.5 fL (80-100); Mean Platelet Volume 9.7 fL (7.4-10.4); Monocytes # (auto) 0.74 K/uL (0.11-0.59); Monocytes % (auto) 7.9 %; Neutrophils # (auto) 7.05 K/uL (1.4-6.5); Neutrophils % (auto) 74.9 %; Platelet Count 170 K/uL (130-400); RDW Coefficient of Variation 14.6 % (11.5-14.5); RDW Standard Deviation 46.5 fL (36.4-46.3); Red Blood Count 4.49 M/uL (4.7-6.1)
[2019-07-13 06:31] LABS: Creatinine Clr Calc Pharmacy 61.4 ml/min; Est GFR (African American) 88.8; Est GFR (Non-African American) 76.6
[2019-07-13] MEDS: HYDROCODONE/ACETAMOPHEN 5/325MG TAB PO PRN ×2 (08:36→13:44)
[2019-07-13] MEDS: INSULIN GLARGINE SOLOSTAR 100 UNITS/ML 3 ML PEN SC SCH (08:39)
[2019-07-13] MEDS: INSULIN ASPART 100 UNITS/ML 3 ML PEN SC SCH ×2 (08:40→12:52)
[2019-07-13] MEDS ORDERED: lisinopriL 20 MG TAB PO SCH (09:00)
--- NOTE | 2019-07-13 09:07 | Surgery Progress Note ---
Date of Service July 13, 2019 Assessment & Plan (1) Incarcerated inguinal hernia: diet as judith he wants to try miralax ok for d/c from our standpoint Subjective some pain, no nausea Physical Exam Gastrointestinal (Abdomen): Inspection/Auscultation: + abdominal surgical incision (clean, dry) Percussion/Palpation: abdomen soft Results & Data Vital Signs (Past 12 Hours) Vital Signs Temp Pulse Resp BP Pulse Ox 07/13/19 06:57 36.8 C 76 18 149/75 H 93 07/13/19 03:13 36.8 C 73 18 143/70 H 92 07/12/19 22:52 36.8 C 72 18 151/72 H 95 PG Care Time/CCT Total # of Minutes Spent Total Time Spent with Patient: Total time spent is greater than 50% in coordination of care (as documented) at patient's floor/unit and/or counseling patient: Coding Level of Care Code None Diagnoses Incarcerated inguinal hernia K40.30
[2019-07-13] MEDS ORDERED: POLYETHYLENE (MIRALAX) 17 GM PACK PO SCH (09:15)
--- NOTE | 2019-07-13 13:22 | Hospitalist Progress Note ---
Date of Service July 13, 2019 Assessment & Plan (1) Incarcerated inguinal hernia: Patient is a 74 yr male who presents with left groin pain and found to have incarcerated left inguinal hernia. Left Incarcerated Inguinal Hernia. CT ABD:A left inguinal hernia containing fluid and a short segment of small bowel. This results in the transition point of the small bowel obstruction. Surgical consultation recommended for decompression. S/P Left Incarcerated Inguinal Hernia Repair with MesH POD #1 by Appreciate Surgery Input Advance diet as tolerated Pain Control Needs follow up with surgery upon discharge DM II HbA1C:8.9 in Feb 2019 Continue ISS, Lantus Monitor BGs HTN Continue Lisinopril Monitor BP Hyperlipidemia Resume statin as able H/O BPH Monitor for urinary retention Bladder scan PRN DVT Px: SCDs for now Re:Surgery Code Status Full code. Disposition Expect to discharge home when stable Admission and Anticipated Discharge Date Admission Date: July 12, 2019 Subjective Patient is seen and examined at bedside Reports minimal pain at left groin surgical site Denies nausea, vomiting, abd pain, chest pain, SOB Tolerating diet Offers no other complaints Review of Systems Review of Systems: All systems reviewed & are unremarkable except as noted in HPI & below Physical Exam Physical Exam: Physical Exam: Vitals signs as noted above General Appearance:Moderately built and nourished, no apparent distress Head: normocephalic, Atraumatic Eyes: normal inspection, EOMI Neck: supple, Trachea midline Respiratory/Chest: Normal breath sounds, CTA Cardiovascular: S1, S2, No murmur Abdomen/GI:Soft, Non tender, Bowel sounds present, +Left Inguinal hernia surgical site Extremities/Musculoskelatal:normal inspection, no edema Neurologic/Psych:AAOX3, grossly no focal neurological deficits Skin: normal color, warm Results & Data Results & Data ([facility]) Vital Signs (Past 12 Hours) Vital Signs Temp Pulse Resp BP Pulse Ox 07/13/19 06:57 36.8 C 76 18 149/75 H 93 07/13/19 03:13 36.8 C 73 18 143/70 H 92 Laboratory Results Short CBC 07/13/19 Range/Units 05:19 WBC 9.40 (4.8-10.8) K/uL Hgb 13.2 L (14.0-18.0) g/dL Hct 39.3 L (42-52) % Plt Count 170 (130-400) K/uL BMP 07/13/19 05:19 Sodium 135 L Potassium 4.0 Chloride 107 Carbon Dioxide 23 BUN 17 Creatinine 0.97 Glucose 185 H Calcium 8.0 L
--- NOTE | 2019-07-13 13:25 | Discharge Summary ---
Date of Service July 13, 2019 Admission HPI Per Admitting Provider CHIEF COMPLAINT: Left groin pain. HISTORY OF PRESENT ILLNESS: This is a 74-year-old male with past medical history significant for type 2 diabetes, hyperlipidemia, hypertension, chronic vascular disease of intestine, mesenteric artery stenosis, history of benign prostatic hypertrophy, history of anemia in the past, who lives with his family, comes because of left groin pain. The patient says that about 30 years, he underwent hernia surgery, but since then he has on and off pain there. For the last 2 days, the pain was severe and not getting better. Denies nausea, vomiting. Last bowel movement was in the morning. Because of ongoing pain and he came to [facility]. Imaging studies showed possible incarcerated inguinal hernia. Seen by surgery and it was reduced, but the plan is for surgery tomorrow because of chance of recurrence.. Currently resting comfortably and hemodynamically stable. Denies any headache. No dizziness, no blurred visions, no earache. Has some runny nose from his allergies. When he lies down, he has a cough. No shortness of breath, no chest pain. No nausea, no vomiting, no diarrhea, no constipation, no blood in the stools or black stools. No burning micturition. No swelling in the legs, no rash. Admission Exam Per Admitting Provider PHYSICAL EXAMINATION: GENERAL: The patient is of moderate build, not in acute distress. VITAL SIGNS: Temperature 36.8, pulse 91, respiratory rate 13, blood pressure 120/75, oxygen 95% on room air. HEENT: No pallor, no icterus. Pupils equal, round, and reactive to light. NECK: No JVD, no neck masses, no carotid bruit. CARDIOVASCULAR: S1, S2 heard, regular rate and rhythm, no murmur, no gallop. RESPIRATORY SYSTEM: Normal AP diameter. No accessory muscle use. No wheezing, no crackles. ABDOMEN: Soft, bowel sounds present. Mild tenderness in the left groin region. No guarding, no rigidity. No distention. CENTRAL NERVOUS SYSTEM: Cranial nerves II-XII grossly intact. Nonfocal. EXTREMITIES: No edema, no erythema. Principal Diagnosis Left Incarcerated Inguinal Hernia. Discharge Data Allergies Allergy/AdvReac Type Severity Reaction Status Date / Time No Known Allergies Allergy Unverified 07/11/19 22:41 Consultations 07/11/19 23:29 ED Decision to Admit Stat 07/12/19 02:27 Consult Case Management - Discharge Planning Routine Consult General Surgery Routine Procedures Performed Operation Date: 07/12/19 07:00 Actual Procedures p Left Incarcerated Inguinal Hernia Repair with Mesh(Left) - Matheus Nieves, CT ABD: A left inguinal hernia containing fluid and a short segment of small bowel. This results in the transition point of the small bowel obstruction. Surgical consultation recommended for decompression. Ordered Studies 07/11/19 21:22 CT abd pelvis IV con only Stat Hospital Course (1) Incarcerated inguinal hernia: Patient is a 74 yr male who presents with left groin pain and found to have incarcerated left inguinal hernia. Left Incarcerated Inguinal Hernia. CT ABD:A left inguinal hernia containing fluid and a short segment of small bowel. This results in the transition point of the small bowel obstruction. Surgical consultation recommended for decompression. S/P Left Incarcerated Inguinal Hernia Repair with MesH POD #1 by Appreciate Surgery Input Advance diet as tolerated Pain Control Needs follow up with surgery upon discharge DM II HbA1C:8.9 in Feb 2019 Continue ISS, Lantus Monitor BGs HTN Continue Lisinopril Monitor BP Hyperlipidemia Resume statin as able H/O BPH Monitor for urinary retention Bladder scan PRN DVT Px: SCDs for now Re:Surgery Code Status Full code. Disposition Expect to discharge home when stable Total Time Total Time Spent Total Time Spent (In Minutes): 40 minutes Total Time Includes: Examination of the Patient, Discharge Planning, Medication Reconciliation, Communication With Other Providers and Other Discharge Plan Discharge Items Patient Disposition: Home - Self-Care Reason For Visit: LEFT GROIN PAIN Discharge Diagnosis: left inguinal hernia repair Activity: Per Instructions section Lifting: No more than 10 pounds Bathing Comment: may shower starting 07/13/19, no soaking in tubs Exercise/Sports: Wait until after follow-up appointment Driving/Machine Use: do not resume driving while taking narcotics for pain Non-emergency contact: Surgeon Call non-emergency contact if: you have any medication questions, your symptoms worsen, your pain is not controlled, your pain is worsening, your pain is unusual for you, you have a fever, your temperature is above 101.5, your wound has increased redness, your wound has increased drainage and your wound pain has increased Follow-up/Referrals: Matheus Nieves DO [Surgeon] - 07/26/19 9:10 am () Moo Kelly MD [Primary Care Provider] - 07/17/19 11:20 am Diet: Carb Consistent or DM2 Addtl Attending Provider Instructions: Follow-up with your primary care physician Dr. Kelly on July 17, 2019 at 11:20 AM Follow-up with your surgeon Dr. Matheus Nieves in 2 weeks as advised Seek immediate medical attention if your symptoms reoccur or worsen Addtl Vp Data Provider Instructions: recommend ibuprofen 400 mg three times per day with food for 4-5 days ice to incision for first 48 hours Pending Studies at Discharge: No Stand-Alone Forms: [facility], Opioid Pain Management, Smoking Cessation Medications and DC Order Prescriptions: New hydrocodone-acetaminophen [[place]] 5-325 mg tablet 1 - 2 tab PO .q4-6h PRN (Reason: pain, for initial therapy, max 6 tabs per day) Qty: 15 RF: 0 Continued atorvastatin [Lipitor] 40 mg tablet 40 mg PO DAILY RF: 0 insulin aspart U-100 [Novolog Flexpen U-100 Insulin] 100 unit/mL (3 mL) insulin pen 0 unit SUBCUT TIDM RF: 0 Lantus Solostar U-100 Insulin 100 unit/mL (3 mL) insulin pen 20 unit SUBCUT QAM RF: 0 lisinopril 20 mg Tablet 20 mg PO DAILY RF: 0 ascorbic acid (vitamin C) [Vitamin C] 250 mg Tablet 250 mg PO DAILY RF: 0 multivitamin Tablet,Chewable 1 tab PO DAILY RF: 0 acetaminophen [Tylenol Extra Strength] 500 mg Tablet 500 mg PO Q6H PRN (Reason: Pain) RF: 0 Discharge Orders: Discharge Order (Routine); Ordered 07/13/19 Ordered By: Chan Spence/Other Patient Handouts: DVT Prevention Admission Data Admit Date/Time: 07/12/19 01:14 Attending Provider: Chan Umana Admit Provider: Toi Cleary Primary Care Provider: Moo Kelly Other Providers: Toi Cleary ; Derrell Roldan Other Interventions: Discharge Summary Assessment (RN) Last Done: 07/13/19 13:34 DC Date/Time DO NOT enter until pt leaves facility: 07/13/19 14:40
== END 2019-07-13 14:40 | disposition home or self-care (01) | DRG 351 ==
LOC: ED 21:08 → 3E 07-12 01:14 → SUATTDRO 07-12 01:14 → 3E 07-12 02:14